=== PATIENT | male | born 1940 | race Caucasian/White ===

== ENCOUNTER 2016-06-13 10:10 | Outpatient (RCR) | payer MEDICARE, OTHER ==
[2016-06-10 13:40] LABS: BASOPHILS % (AUTO) 0 % (0-10); EOSINOPHILS # (AUTO) 0.4 10^3/uL (0.0-0.3); EOSINOPHILS % (AUTO) 6 % (0-10); LYMPHOCYTES # (AUTO) 1.9 X 10^3 (1.0-4.0); LYMPHOCYTES % (AUTO) 33 % (12-44); MEAN CORPUSCULAR HEMOGLOBIN 31 PG (25-34); MEAN CORPUSCULAR HGB CONC 34 G/DL (32-36); MEAN CORPUSCULAR VOLUME 91 FL (80-99); MEAN PLATELET VOLUME 10.3 FL (7.4-10.4); MONOCYTES # (AUTO) 0.4 X 10^3 (0.0-1.0); MONOCYTES % (AUTO) 6 % (0-12); NEUTROPHILS # (AUTO) 3.1 X 10^3 (1.8-7.8); NEUTROPHILS % (AUTO) 55 % (42-75); PLATELET COUNT 156 10^3/uL (130-400); RED BLOOD COUNT 4.79 10^6/uL (4.35-5.85); RED CELL DISTRIBUTION WIDTH 13.8 % (10.0-14.5); WHITE BLOOD COUNT 5.7 10^3/uL (4.3-11.0)
[2016-06-10 13:57] LABS: ALANINE AMINOTRANSFERASE 16 U/L (0-55); ALBUMIN 4.1 G/DL (3.2-4.5); ANION GAP 13 MMOL/L (5-14); ASPARTATE AMINO TRANSFERASE 18 U/L (5-34); BILIRUBIN,TOTAL 0.4 MG/DL (0.1-1.0); BLOOD UREA NITROGEN 18 MG/DL (7-18); BUN/CREATININE RATIO 18; CALCIUM 9.2 MG/DL (8.5-10.1); CARBON DIOXIDE 22 MMOL/L (21-32); CHLORIDE 105 MMOL/L (98-107); GFR ESTIMATED > 60; GLUCOSE 131 MG/DL (70-105); POTASSIUM 4.3 MMOL/L (3.6-5.0); SODIUM 140 MMOL/L (135-145); TOTAL PROTEIN 6.6 G/DL (6.4-8.2)
[~2016-06-13 10:10] MED LIST: AMBIEN CR; ASP81CT PO; ASPI-983 PO; CLC500CT PO; DABI150C2 PO; DILT180C PO; DILT240C PO; ERGO400C PO; LORA10TA7 PO; MULT1CAP27 PO; OMG1KC PO; OXYC-12 PO; OXYC1TAB87 PO; PNT40TEC PO; PRAV80TA2 PO; SERT50TA; SERT50TA PO; ZLP5T PO
== END 2016-09-08 | disposition home or self-care (01) ==
LOC: ONC 10:10
PROVIDERS: ATTEND Internal Medicine Hematology & Oncology
DX: Z08 Encounter for follow-up examination after completed treatment for malignant neoplasm (principal); Z85.038 Personal history of other malignant neoplasm of large intestine; I10 Essential (primary) hypertension; Z79.899 Other long term (current) drug therapy
CPT/HCPCS: 36415; 80053; 82378; 85025; 99213

== ENCOUNTER → 2017-06-06 | Outpatient (CLI) | payer MEDICARE, OTHER ==
[~2017-06-06] VITALS: Ht 170.2 cm; Wt 86.6 kg
[~2017-06-06] MED LIST changes: +CATHETER FLUSH 10 ML SYR IV PRN; +REGADENOSON 0.4 MG/5 ML SYR (LEXISCAN) IV ONE
[2017-06-06 09:41] VITALS: BP 168/96
== END ==
LOC: CARD 07:55
PROVIDERS: ATTEND Internal Medicine Cardiovascular Disease
DX: I48.0 Paroxysmal atrial fibrillation (principal); I25.10 Atherosclerotic heart disease of native coronary artery without angina pectoris; E78.4 Other hyperlipidemia; I10 Essential (primary) hypertension; R06.02 Shortness of breath; Z79.01 Long term (current) use of anticoagulants
CPT/HCPCS: 78452; 93017

== ENCOUNTER 2017-06-12 10:38 | Outpatient (RCR) | payer MEDICARE, OTHER ==
[~2017-06-12 10:38] MED LIST changes: -CATHETER FLUSH 10 ML SYR IV PRN; -REGADENOSON 0.4 MG/5 ML SYR (LEXISCAN) IV ONE
[2017-08-08] MEDS ORDERED: DABI150C5 PO (09:56)
[2017-08-08] MEDS ORDERED: OMG1KC PO (09:56)
[2017-08-08] MEDS ORDERED: DILT180C67 PO (09:56)
[2017-08-08] MEDS ORDERED: MULT1TAB69 PO (09:56)
[2017-08-08] MEDS ORDERED: NF-VITD400 PO (09:56)
[2017-08-08] MEDS ORDERED: MONT10TA24 PO (09:56)
== END 2017-09-10 | disposition home or self-care (01) ==
LOC: ONC 10:38
PROVIDERS: ATTEND Internal Medicine Hematology & Oncology
DX: Z08 Encounter for follow-up examination after completed treatment for malignant neoplasm (principal); Z85.038 Personal history of other malignant neoplasm of large intestine; I10 Essential (primary) hypertension; Z12.5 Encounter for screening for malignant neoplasm of prostate; Z79.899 Other long term (current) drug therapy
CPT/HCPCS: 36415; 82378; 84153; 99213

== ENCOUNTER → 2017-06-15 | Outpatient (CLI) | payer MEDICARE, OTHER | LOC: CARD 10:41 | PROVIDERS: ATTEND Internal Medicine Cardiovascular Disease | DX: I48.0 Paroxysmal atrial fibrillation (principal); R06.02 Shortness of breath; I25.10 Atherosclerotic heart disease of native coronary artery without angina pectoris; E78.4 Other hyperlipidemia; I10 Essential (primary) hypertension; Z79.01 Long term (current) use of anticoagulants | CPT/HCPCS: 93306 ==

== ENCOUNTER 2017-08-08 09:34 | Outpatient (CLI) | payer MEDICARE, OTHER ==
[~2017-08-08] VITALS: Ht 170.2 cm; Wt 86.6 kg
[2017-08-08] MEDS ORDERED: OMG1KC PO (09:56)
[2017-08-08] MEDS ORDERED: MONT10TA24 PO (09:56)
[2017-08-08] MEDS ORDERED: NF-VITD400 PO (09:56)
[2017-08-08] MEDS ORDERED: DILT180C67 PO (09:56)
[2017-08-08] MEDS ORDERED: DABI150C5 PO (09:56)
[2017-08-08] MEDS ORDERED: MULT1TAB69 PO (09:56)
== END 2017-08-08 09:58 ==
LOC: PREOP 09:34
PROVIDERS: ATTEND Surgery
DX: Z01.818 Encounter for other preprocedural examination (principal); Z85.038 Personal history of other malignant neoplasm of large intestine; Z86.010 Personal history of colon polyps

== ENCOUNTER 2017-08-09 10:43 | Day surgery (SDC) | payer MEDICARE, OTHER ==
[~2017-08-09] VITALS: Ht 170.2 cm; Wt 86.6 kg
[~2017-08-09 10:43] MED LIST changes: +DABI150C5 PO; +DILT180C67 PO; +MONT10TA24 PO; +MULT1TAB69 PO; +NF-VITD400 PO
--- OUTSIDE RECORDS SUMMARY | 2017-08-09 10:48 | XMS REPORT | Continuity of Care Document ---
Author Author [facility] Organization [facility] Address Unknown Phone Unavailable Allergies Active Description Code Type Severity Reaction Onset Reported/Identified Relationship to Patient Clinical Status Yes No Known Drug Allergies [id number] Drug Allergy Unknown N/ A 08/07/2007 Medications Problems Date Dx Coded Attending Type Code Diagnosis Diagnosed By 03/21/2012 Ot 530.11 REFLUX ESOPHAGITIS 03/21/2012 Ot 535.40 OTH SPECIFIED GASTRITIS,W/O MENTION OF H 03/21/2012 Ot 553.3 DIAPHRAGMATIC HERNIA 03/21/2012 Ot V58.66 LONG-TERM (CURRENT) USE OF ASPIRIN 03/21/2012 Ot V58.69 OTH MED,LT,CURRENT USE 07/25/2013 VERNELL LANZA, VIDAL Ot 553.21 INCISIONAL HERNIA 07/25/2013 VERNELL LANZA, VIDAL Ot 575.11 CHRONIC CHOLECYSTITIS 03/21/2014 VIDAL MATT MD Ot 530.11 REFLUX ESOPHAGITIS 03/21/2014 VIDAL MATT MD Ot 535.50 UNSP GASTRITIS GASTRODUODENITIS W/O ME 03/21/2014 VIDAL MATT MD Ot 553.3 DIAPHRAGMATIC HERNIA 08/04/2014 JUSTIN LANZA, SUKHWINDER Garcia Ot 789.00 08/04/2014 VIDAL MATT MD Ot 553.21 08/04/2014 VIDAL MATT MD Ot 575.11 08/04/2014 VIDAL MATT MD Ot V72.63 08/04/2014 VIDAL MATT MD Ot V72.81 08/04/2014 VERNELL LANZA, VIDAL Ot V72.83 08/04/2014 VIDAL MATT MD Ot V74.8 08/04/2014 DONNA LANZA, EDITH Ot 401.9 08/04/2014 EDITH THOMPSON MD Ot V10.05 08/04/2014 EDITH THOMPSON MD Ot V45.72 08/04/2014 DONNA LANZA, EDITH Ot V58.69 08/04/2014 DONNA LANZA, EDITH Ot V67.09 08/04/2014 JUSTIN LANZA, SUKHWINDER Garcia Ot 442.2 08/04/2014 JUSTIN LANZA, SUKHWINDER Garcia Ot 553.3 08/04/2014 JUSTIN LANZA, SUKHWINDER Garcia Ot 573.8 08/04/2014 JUSTIN LANZA, SUKHWINDER Garcia Ot 593.2 08/04/2014 JUSTIN LANZA, SUKHWINDER Garcia Ot 789.00 08/04/2014 VERNELL LANZA, REYNAAAKI Ot V72.84 09/03/2014 JUSTIN LANZA, SUKHWINDER Garcia Ot 786.2 06/24/2015 VERNELL LANZA, TAKAAKI Ot D12.8 06/24/2015 VERNELL LANZA, TAKAAKI Ot K64.4 06/24/2015 VERNELL LANZA, TAKAAKI Ot K64.8 06/24/2015 VERNELL LANZA, TAKAAKI Ot Z08 06/24/2015 VERNELL LANZA, TAKAAKI Ot Z12.11 06/24/2015 VERNELL LANZA, TAKAAKI Ot Z85.038 07/09/2015 JUSTIN LANZA, SUKHWINDER Garcia Ot I25.10 07/09/2015 JUSTIN LANZA, SUKHWINDER Garcia Ot N40.0 07/09/2015 JUSTIN LANZA, SUKHWINDER Garcia Ot Z79.899 08/05/2015 DONNA LANZA, EDITH Ot I10 08/05/2015 EDITH THOMPSON MD Ot Z08 08/05/2015 DONNA LANZA, EDITH Ot Z79.899 08/05/2015 DONNA LANZA, EDITH Ot Z85.038 09/08/2015 EDITH THOMPSON MD Ot I10 ESSENTIAL (PRIMARY) HYPERTENSION 09/08/2015 EDITH THOMPSON MD Ot Z08 ENCNTR FOR FOLLOW-UP EXAM AFTER TRTMT FO 09/08/2015 EDITH THOMPSON MD Ot Z79.899 OTHER FIELD AIDE (CURRENT) DRUG THERAPY 09/08/2015 EDITH THOMPSON MD Ot Z85.038 PERSONAL HISTORY OF MALIGNANT NEOPLASM O 04/12/2016 SUKHWINDER ANDERSON MD Ot R19.7 DIARRHEA, UNSPECIFIED 04/15/2016 SUKHWINDER ANDERSON MD Ot R19.7 DIARRHEA, UNSPECIFIED 07/10/2016 SUKHWINDER ANDERSON MD Ot R19.7 DIARRHEA, UNSPECIFIED 08/02/2016 EDITH THOMPSON MD Ot I10 ESSENTIAL (PRIMARY) HYPERTENSION 08/02/2016 EDITH THOMPSON MD, Ot Z08 ENCNTR FOR FOLLOW-UP EXAM AFTER TRTMT FO 08/02/2016 EDITH THOMPSON MD Ot Z79.899 OTHER JAIL (CURRENT) DRUG THERAPY 08/02/2016 EDITH THOMPSON MD Ot Z85.038 PERSONAL HISTORY OF MALIGNANT NEOPLASM O 09/08/2016 EDITH THOMPSON MD, Ot I10 ESSENTIAL (PRIMARY) HYPERTENSION 09/08/2016 EDITH THOMPSON MD, Ot Z08 ENCNTR FOR FOLLOW-UP EXAM AFTER TRTMT FO 09/08/2016 EDITH THOMPSON MD, Ot Z79.899 OTHER JAIL (CURRENT) DRUG THERAPY 09/08/2016 EDITH THOMPSON MD Ot Z85.038 PERSONAL HISTORY OF MALIGNANT NEOPLASM O 06/06/2017 SUKHWINDER ANDERSON MD Ot 789.00 ABDOMINAL PAIN, UNSPECIFIED SITE 06/06/2017 VIDAL MATT MD Ot 553.21 INCISIONAL HERNIA 06/06/2017 VIDAL MATT MD Ot 575.11 CHRONIC CHOLECYSTITIS 06/06/2017 VIDAL MATT MD Ot V72.63 PRE-PROCEDURAL LABORATORY EXAMINATION 06/06/2017 VIDAL MATT MD Ot V72.81 [id number]-[id number] CARDIOVASCULAR 06/06/2017 VIDAL MATT MD Ot V72.83 EXAM PRE-OPERATIVE NEC 06/06/2017 VIDAL MATT MD Ot V74.8 SCREEN-BACTERIAL DIS NEC 06/06/2017 EDITH THOMPSON MD Ot 401.9 HYPERTENSION NOS 06/06/2017 EDITH THOMPSON MD Ot V10.05 HX OF COLONIC MALIGNANCY 06/06/2017 EDITH THOMPSON MD Ot V45.72 ACQRD ABSENCE INTESTINE - LARGE/SMALL 06/06/2017 EDITH THOMPSON MD, Ot V58.69 OTH MED,LT,CURRENT USE 06/06/2017 EDITH THOMPSON MD, Ot V67.09 SURGERY FOLLOW-UP, OTHER SURGERY 06/06/2017 JUSTIN LANZA, SUKHWINDER Garcia Ot 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 06/06/2017 SUKHWINDER ANDERSON MD Ot 553.3 DIAPHRAGMATIC HERNIA 06/06/2017 SUKHWINDER ANDERSON MD Ot 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 06/06/2017 SUKHWINDER ANDERSON MD Ot 593.2 CYST OF KIDNEY, ACQUIRED 06/06/2017 SUKHWINDER ANDERSON MD Ot 789.00 ABDOMINAL PAIN, UNSPECIFIED SITE 06/06/2017 VIDAL MATT MD Ot V72.84 EXAM PRE-OPERATIVE NOS 06/06/2017 SUKHWINDER ANDERSON MD Ot 786.2 COUGH 06/06/2017 SUKHWINDER ANDERSON MD Ot I25.10 ATHSCL HEART DISEASE OF [place] CORONARY 06/06/2017 SUKHWINDER ANDERSON MD Ot N40.0 ENLARGED PROSTATE WITHOUT LOWER URINARY 06/06/2017 SUKHWINDER ANDERSON MD, Ot Z79.899 OTHER FIELD AIDE (CURRENT) DRUG THERAPY 06/06/2017 VIDAL MATT MD Ot Z01.818 ENCOUNTER FOR OTHER PREPROCEDURAL EXAMIN 06/06/2017 SUKHWINDER ANDERSON MD Ot R19.7 DIARRHEA, UNSPECIFIED 06/06/2017 EDITH THOMPSON MD Ot I10 ESSENTIAL (PRIMARY) HYPERTENSION 06/06/2017 EDITH THOMPSON MD Ot Z08 ENCNTR FOR FOLLOW-UP EXAM AFTER TRTMT FO 06/06/2017 EDITH THOMPSON MD, Ot Z79.899 OTHER FIELD AIDE (CURRENT) DRUG THERAPY 06/06/2017 EDITH THOMPSON MD Ot Z85.038 PERSONAL HISTORY OF MALIGNANT NEOPLASM O 06/09/2017 SUKHWINDER ANDERSON MD Ot 789.00 ABDOMINAL PAIN, UNSPECIFIED SITE 06/09/2017 VIDAL MATT MD Ot 553.21 INCISIONAL HERNIA 06/09/2017 VIDAL MATT MD Ot 575.11 CHRONIC CHOLECYSTITIS 06/09/2017 VIDAL MATT MD Ot V72.63 PRE-PROCEDURAL LABORATORY EXAMINATION 06/09/2017 VIDAL MATT MD Ot V72.81 [id number]-[id number] CARDIOVASCULAR 06/09/2017 VIDAL MATT MD Ot V72.83 EXAM PRE-OPERATIVE NEC 06/09/2017 VIDAL MATT MD Ot V74.8 SCREEN-BACTERIAL DIS NEC 06/09/2017 EDITH THOMPSON MD Ot 401.9 HYPERTENSION NOS 06/09/2017 EDITH THOMPSON MD Ot V10.05 HX OF COLONIC MALIGNANCY 06/09/2017 EDITH THOMPSON MD, Ot V45.72 ACQRD ABSENCE INTESTINE - LARGE/SMALL 06/09/2017 EDITH THOMPSON MD, Ot V58.69 OTH MED,LT,CURRENT USE 06/09/2017 EDITH THOMPSON MD, Ot V67.09 SURGERY FOLLOW-UP, OTHER SURGERY 06/09/2017 SUKHWINDER ANDERSON MD Ot 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 06/09/2017 SUKHWINDER ANDERSON MD Ot 553.3 DIAPHRAGMATIC HERNIA 06/09/2017 SUKHWINDER ANDERSON MD Ot 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 06/09/2017 SUKHWINDER ANDERSON MD Ot 593.2 CYST OF KIDNEY, ACQUIRED 06/09/2017 SUKHWINDER ANDERSON MD Ot 789.00 ABDOMINAL PAIN, UNSPECIFIED SITE 06/09/2017 VIDAL MATT MD, Ot V72.84 EXAM PRE-OPERATIVE NOS 06/09/2017 SUKHWINDER ANDERSON MD, Ot 786.2 COUGH 06/09/2017 SUKHWINDER ANDERSON MD, Ot I25.10 ATHSCL HEART DISEASE OF [place] CORONARY 06/09/2017 SUKHWINDER ANDERSON MD Ot N40.0 ENLARGED PROSTATE WITHOUT LOWER URINARY 06/09/2017 SUKHWINDER ANDERSON MD, Ot Z79.899 OTHER FIELD AIDE (CURRENT) DRUG THERAPY 06/09/2017 VIDAL MATT MD Ot Z01.818 ENCOUNTER FOR OTHER PREPROCEDURAL EXAMIN 06/09/2017 SUKHWINDER ANDERSON MD Ot R19.7 DIARRHEA, UNSPECIFIED 06/09/2017 EDITH THOMPSON MD, Ot I10 ESSENTIAL (PRIMARY) HYPERTENSION 06/09/2017 EDITH THOMPSON MD, Ot Z08 ENCNTR FOR FOLLOW-UP EXAM AFTER TRTMT FO 06/09/2017 EDITH THOMPSON MD, Ot Z79.899 OTHER FIELD AIDE (CURRENT) DRUG THERAPY 06/09/2017 EDITH THOMPSON MD Ot Z85.038 PERSONAL HISTORY OF MALIGNANT NEOPLASM O 06/09/2017 DMITRI LANZA FACC, ALI FACP CCDS Ot E78.4 OTHER HYPERLIPIDEMIA 06/09/2017 DMITRI LANZA FACC, ALI FACP CCDS Ot I10 ESSENTIAL (PRIMARY) HYPERTENSION 06/09/2017 DMITRI LANZA FACC, ALI FACP CCDS Ot I25.10 ATHSCL HEART DISEASE OF [place] CORONARY 06/09/2017 DMITRI LANZA FACC, ALI FACP CCDS Ot I48.0 PAROXYSMAL ATRIAL FIBRILLATION 06/09/2017 DMITRI LANZA FACC, ALI FACP CCDS Ot R06.02 SHORTNESS OF BREATH 06/09/2017 DMITRI LANZA FACC, ALI FACP CCDS Ot Z79.01 FIELD AIDE (CURRENT) USE OF ANTICOAGULANT 06/12/2017 DMITRI LANZA FACC, ALI FACP CCDS Ot E78.4 OTHER HYPERLIPIDEMIA 06/12/2017 DMITRI LANZA FACC, ALI FACP CCDS Ot I10 ESSENTIAL (PRIMARY) HYPERTENSION 06/12/2017 DMITRI LANZA FACC, ALI FACP CCDS Ot I25.10 ATHSCL HEART DISEASE OF [place] CORONARY 06/12/2017 DMITRI LANZA FACC, ALI FACP CCDS Ot I48.0 PAROXYSMAL ATRIAL FIBRILLATION 06/12/2017 DMITRI LANZA FACC, ALI FACP CCDS Ot R06.02 SHORTNESS OF BREATH 06/12/2017 DMITRI LANZA FACC, ALI FACP CCDS Ot Z79.01 JAIL (CURRENT) USE OF ANTICOAGULANT 06/16/2017 DMITRI LANZA FACC, ALI FACP CCDS Ot E78.4 OTHER HYPERLIPIDEMIA 06/16/2017 DMITRI LANZA FACC, ALI FACP CCDS Ot I10 ESSENTIAL (PRIMARY) HYPERTENSION 06/16/2017 DMITRI LAZNA FACC, ALI FACP CCDS Ot I25.10 ATHSCL HEART DISEASE OF [place] CORONARY 06/16/2017 DMITRI LANZA FACC, ALI FACP CCDS Ot I48.0 PAROXYSMAL ATRIAL FIBRILLATION 06/16/2017 DMITRI LANZA FACC, ALI FACP CCDS Ot R06.02 SHORTNESS OF BREATH 06/16/2017 DMITRI LANZA FACC, ALI FACP CCDS Ot Z79.01 JAIL (CURRENT) USE OF ANTICOAGULANT 06/28/2017 DMITRI LANZA FACC, ALI FACP CCDS Ot E78.4 OTHER HYPERLIPIDEMIA 06/28/2017 DMITRI LANZA FACC, ALI FACP CCDS Ot I10 ESSENTIAL (PRIMARY) HYPERTENSION 06/28/2017 DMITRI LANZA FACC, ALI FACP CCDS Ot I25.10 ATHSCL HEART DISEASE OF [place] CORONARY 06/28/2017 DMITRI LANZA FACC, ALI FACP CCDS Ot I48.0 PAROXYSMAL ATRIAL FIBRILLATION 06/28/2017 DMITRI LANZA FACC, ALI FACP CCDS Ot R06.02 SHORTNESS OF BREATH 06/28/2017 DMITRI LANZA FACC, GITA FACP CCDS Ot Z79.01 FIELD AIDE (CURRENT) USE OF ANTICOAGULANT 07/06/2017 DMITRI LANZA FACC, ALI FACP CCDS Ot E78.4 OTHER HYPERLIPIDEMIA 07/06/2017 DMITRI LANZA FACC, ALI FACP CCDS Ot I10 ESSENTIAL (PRIMARY) HYPERTENSION 07/06/2017 DMITIR LANZA FACC, ALI FACP CCDS Ot I25.10 ATHSCL HEART DISEASE OF [place] CORONARY 07/06/2017 DMITRI LANZA FACC, ALI FACP CCDS Ot I48.0 PAROXYSMAL ATRIAL FIBRILLATION 07/06/2017 DMITRI LANZA FACC, GITA FACP CCDS Ot R06.02 SHORTNESS OF BREATH 07/06/2017 DMITRI LANZA FACC, GITA FACP CCDS Ot Z79.01 FIELD AIDE (CURRENT) USE OF ANTICOAGULANT 07/11/2017 EDITH THOMPSON MD, Ot I10 ESSENTIAL (PRIMARY) HYPERTENSION 07/11/2017 EDITH THOMPSON MD, Ot Z08 ENCNTR FOR FOLLOW-UP EXAM AFTER TRTMT FO 07/11/2017 EDITH THOMPSON MD Ot Z79.899 OTHER FIELD AIDE (CURRENT) DRUG THERAPY 07/11/2017 EDITH THOMPSON MD, Ot Z85.038 PERSONAL HISTORY OF MALIGNANT NEOPLASM O 07/11/2017 EDITH THOMPSON MD, Ot I10 ESSENTIAL (PRIMARY) HYPERTENSION 07/11/2017 EDITH THOMPSON MD, Ot Z08 ENCNTR FOR FOLLOW-UP EXAM AFTER TRTMT FO 07/11/2017 EDITH THOMPSON MD Ot Z79.899 OTHER JAIL (CURRENT) DRUG THERAPY 07/11/2017 EDITH THOMPSON MD, Ot Z85.038 PERSONAL HISTORY OF MALIGNANT NEOPLASM O 07/11/2017 JUSTIN LANZA, SUKHWINDER Garcia Ot 789.00 ABDOMINAL PAIN, UNSPECIFIED SITE 07/11/2017 VIDAL MATT MD Ot 553.21 INCISIONAL HERNIA 07/11/2017 VIDAL MATT MD Ot 575.11 CHRONIC CHOLECYSTITIS 07/11/2017 VIDAL MATT MD, Ot V72.63 PRE-PROCEDURAL LABORATORY EXAMINATION 07/11/2017 VIDAL MATT MD, Ot V72.81 [id number] CARDIOVASCULAR 07/11/2017 VIDAL MATT MD, Ot V72.83 EXAM PRE-OPERATIVE NEC 07/11/2017 VIDAL MATT MD Ot V74.8 SCREEN-BACTERIAL DIS NEC 07/11/2017 EDITH THOMPSON MD Ot 401.9 HYPERTENSION NOS 07/11/2017 EDITH THOMPSON MD Ot V10.05 HX OF COLONIC MALIGNANCY 07/11/2017 EDITH THOMPSON MD, Ot V45.72 ACQRD ABSENCE INTESTINE - LARGE/SMALL 07/11/2017 EDITH THOMPSON MD, Ot V58.69 OTH MED,LT,CURRENT USE 07/11/2017 EDITH THOMPSON MD, Ot V67.09 SURGERY FOLLOW-UP, OTHER SURGERY 07/11/2017 SUKHWINDER ANDERSON MD Ot 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 07/11/2017 SUKHWINDER ANDERSON MD Ot 553.3 DIAPHRAGMATIC HERNIA 07/11/2017 SUKHWINDER ANDERSON MD Ot 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 07/11/2017 SUKHWINDER ANDERSON MD Ot 593.2 CYST OF KIDNEY, ACQUIRED 07/11/2017 SUKHWINDER ANDERSON MD Ot 789.00 ABDOMINAL PAIN, UNSPECIFIED SITE 07/11/2017 VIDAL MATT MD Ot V72.84 EXAM PRE-OPERATIVE NOS 07/11/2017 SUKHWINDER ANDERSON MD Ot 786.2 COUGH 07/11/2017 SUKHWINDER ANDERSON MD Ot I25.10 ATHSCL HEART DISEASE OF [place] CORONARY 07/11/2017 SUKHWINDER ANDERSON MD Ot N40.0 ENLARGED PROSTATE WITHOUT LOWER URINARY 07/11/2017 SUKHWINDER ANDERSON MD Ot Z79.899 OTHER JAIL (CURRENT) DRUG THERAPY 07/11/2017 VIDAL MATT MD Ot Z01.818 ENCOUNTER FOR OTHER PREPROCEDURAL EXAMIN 07/11/2017 SUKHWINDER ANDERSON MD Ot R19.7 DIARRHEA, UNSPECIFIED 07/11/2017 EDITH THOMPSON MD Ot I10 ESSENTIAL (PRIMARY) HYPERTENSION 07/11/2017 EDITH THOMPSON MD, Ot Z08 ENCNTR FOR FOLLOW-UP EXAM AFTER TRTMT FO 07/11/2017 EDITH THOMPSON MD, Ot Z79.899 OTHER FIELD AIDE (CURRENT) DRUG THERAPY 07/11/2017 EDITH THOMPSON MD Ot Z85.038 PERSONAL HISTORY OF MALIGNANT NEOPLASM O 07/11/2017 DMITRI LANZA FACC, ALI FACP CCDS Ot E78.4 OTHER HYPERLIPIDEMIA 07/11/2017 DMITRI LANZA FACC, ALI FACP CCDS Ot I10 ESSENTIAL (PRIMARY) HYPERTENSION 07/11/2017 DMITRI LANZA FACC, ALI FACP CCDS Ot I25.10 ATHSCL HEART DISEASE OF [place] CORONARY 07/11/2017 DMITRI LANZA FACC, ALI FACP CCDS Ot I48.0 PAROXYSMAL ATRIAL FIBRILLATION 07/11/2017 DMITRI LANZA FACC, ALI FACP CCDS Ot R06.02 SHORTNESS OF BREATH 07/11/2017 DMITRI LANZA FACC, ALI FACP CCDS Ot Z79.01 FIELD AIDE (CURRENT) USE OF ANTICOAGULANT 07/11/2017 DMITRI LANZA FACC, ALI FACP CCDS Ot E78.4 OTHER HYPERLIPIDEMIA 07/11/2017 DMITRI LANZA FACC, ALI FACP CCDS Ot I10 ESSENTIAL (PRIMARY) HYPERTENSION 07/11/2017 DMITRI LANZA FACC, ALI FACP CCDS Ot I25.10 ATHSCL HEART DISEASE OF [place] CORONARY 07/11/2017 DMITRI LANZA FACC, ALI FACP CCDS Ot I48.0 PAROXYSMAL ATRIAL FIBRILLATION 07/11/2017 DMITRI LANZA FACC, ALI FACP CCDS Ot R06.02 SHORTNESS OF BREATH 07/11/2017 DMITRI LANZA FACC, ALI FACP CCDS Ot Z79.01 JAIL (CURRENT) USE OF ANTICOAGULANT 07/14/2017 DMITRI WELCHC, ALI FACP CCDS Ot E78.4 OTHER HYPERLIPIDEMIA 07/14/2017 DMITRI LANZA FACC, ALI FACP CCDS Ot I10 ESSENTIAL (PRIMARY) HYPERTENSION 07/14/2017 DMITRI WELCHC, ALI FACP CCDS Ot I25.10 ATHSCL HEART DISEASE OF [place] CORONARY 07/14/2017 DMITRI LANZA FACC, ALI FACP CCDS Ot I48.0 PAROXYSMAL ATRIAL FIBRILLATION 07/14/2017 DMITRI LANZA FACC, ALI FACP CCDS Ot R06.02 SHORTNESS OF BREATH 07/14/2017 DMITRI LANZA FACC, ALI FACP CCDS Ot Z79.01 FIELD AIDE (CURRENT) USE OF ANTICOAGULANT 07/24/2017 DMITRI LANZA FACC, ALI FACP CCDS Ot E78.4 OTHER HYPERLIPIDEMIA 07/24/2017 DMITRI LANZA FACC, ALI FACP CCDS Ot I10 ESSENTIAL (PRIMARY) HYPERTENSION 07/24/2017 DMITRI LANZA FACC, ALI FACP CCDS Ot I25.10 ATHSCL HEART DISEASE OF [place] CORONARY 07/24/2017 DMITRI LANZA FACC, GITA FACP CCDS Ot I48.0 PAROXYSMAL ATRIAL FIBRILLATION 07/24/2017 DMITRI LANZA FACC, GITA FACP CCDS Ot R06.02 SHORTNESS OF BREATH 07/24/2017 DMITRI LANZA FACC, GITA FACP CCDS Ot Z79.01 JAIL (CURRENT) USE OF ANTICOAGULANT 07/31/2017 EDITH THOMPSON MD, Ot I10 ESSENTIAL (PRIMARY) HYPERTENSION 07/31/2017 EDITH THOMPSON MD Ot Z08 ENCNTR FOR FOLLOW-UP EXAM AFTER TRTMT FO 07/31/2017 EDITH THOMPSON MD, Ot Z79.899 OTHER JAIL (CURRENT) DRUG THERAPY 07/31/2017 EDITH THOMPSON MD, Ot Z85.038 PERSONAL HISTORY OF MALIGNANT NEOPLASM O Procedures Results Encounters ACCT No. Visit Date/Time Discharge Status Pt. Type Provider Facility Loc./Unit Complaint [id number] 08/08/2017 09:34:00 2016 09:58:00 DIS Outpatient VIDAL MATT MD [facility] PREOP COLONOSCOPY [id number] 06/15/2017 10:41:00 2016 23:59:59 CLS Outpatient DMITRI LANZA FACC ALI FACP CCDS [facility] CARD PAF,CAD [id number] 06/12/2017 10:38:00 2016 23:59:59 CLS Outpatient EDITH THOMPSON MD [facility] ONC [id number] 06/06/2017 07:55:00 2016 23:59:59 CLS Outpatient GITA RIZVI MD, FACC FACP CCDS [facility] CARD PAF,SOB [id number] 06/13/2016 10:10:00 2016 00:01:00 DIS Outpatient EDITH THOMPSON MD [facility] ONC [id number] 07/11/2016 00:08:00 2015 23:59:59 CLS Preadmit SUKHWINDER ANDERSON MD [facility] LAB DIARRHEA [id number] 04/11/2016 10:40:00 2015 00:01:00 DIS Outpatient SUKHWINDER ANDERSON MD [facility] LAB DIARRHEA [id number] 07/15/2015 12:50:00 2015 00:01:00 DIS Outpatient EDITH THOMPSON MD [facility] ONC [id number] 06/24/2015 08:30:00 2014 12:00:00 DIS Outpatient VIDAL MATT MD [facility] [id number] 06/19/2015 05:39:00 2014 23:59:59 CLS Outpatient VIDAL MATT MD [facility] PREOP HX COLON CANCER [id number] 06/15/2015 11:21:00 2014 23:59:59 CLS Outpatient SUKHWINDER ANDERSON MD [facility] LAB [id number] 08/04/2014 10:54:00 2013 23:59:59 CLS Outpatient SUKHWINDER ANDERSON MD [facility] RAD COUGH [id number] 06/16/2014 09:47:00 2013 23:59:59 CLS Outpatient EDITH THOMPSON MD [facility] ONC LAB [id number] 03/21/2014 10:15:00 2013 15:00:00 DIS Outpatient VIDAL MATT MD [facility] GERD [id number] 03/19/2014 07:52:00 2013 23:59:59 CLS Outpatient VIDAL MATT MD [facility] PREOP GERD [id number] 02/18/2014 09:08:00 2013 23:59:59 CLS Outpatient SUKHWINDER ANDERSON MD [facility] RAD ABD PAIN [id number] 06/17/2013 10:54:00 2013 00:01:00 DIS Outpatient [id number] 07/25/2013 10:17:00 2012 21:50:00 DIS Outpatient VIDAL MATT MD [facility] INCISIONAL HERNIA [id number] 07/24/2013 09:32:00 2012 23:59:59 CLS Outpatient VIDAL MATT MD [facility] PREOP INCISIONAL HERNIA [id number] 07/05/2013 06:50:00 2012 23:59:59 CLS Outpatient SUKHWINDER ANDERSON MD [facility] RAD ABD PAIN [id number] 03/21/2012 06:27:00 Document Registration
[2017-08-09] MEDS ORDERED: NS IV 500 ML 500 ML IV PRN (10:52)
[2017-08-09 11:19] VITALS: BP 140/91
--- NOTE | 2017-08-09 11:33 | Conscious Sedation/ASA ---
Conscious Sedation Pre-Proced Time Reviewed: 11:20 ASA Class: 2 Airway Mallampati Classification: ([place] appropriate class) I. II. III, IV Lungs Heart ASA score ASA 1: a normal healthy patient ASA 2: a patient with a mild systemic disease (mid diabetes, controlled hypertension, obesity ASA 3: a patient with a severe systemic disease that limits activity (angina , COPD, prior Myocardial infarction) ASA 4: a patient with an incapacitating disease that is a constant threat to life (CHF, renal failure) ASA 5: a moribund patient not expected to survive 24 hrs. (ruptured aneurysm) ASA 6: a declared brain patient whose organs are being harvested. For emergent operations, add the letter E after the classification Grade 2 Sedation Plan: Analgesia, Amnesia, Plan communicated to team members, Discussed options with patient/fam, Discussed risks with patient/fam Note The patient is an appropriate candidate to undergo the planned procedure, sedation, and anesthesia. The patient immediately re-assessed prior to indication. VIDAL MATT MD Aug 09, 2017 11:33 am
--- NOTE | 2017-08-09 11:34 | Progress Note-Pre Operative ---
Pre-Operative Progress Note H&P Reviewed The H&P was reviewed, patient examined and no changes noted. Date Seen by Provider: Aug 09, 2017 Time Seen by Provider: 11:20 Date H&P Reviewed: Aug 09, 2017 Time H&P Reviewed: 11:20 Pre-Operative Diagnosis: hx colon ca and polyps VIDAL MATT MD Aug 09, 2017 11:34 am
[2017-08-09] MEDS ORDERED: morphine INJ 10 MG/ML 1ML (SYR OR VIAL) IV PRN (11:45)
[2017-08-09] MEDS ORDERED: ONDANSETRON 4 MG/2 ML (SDV) Z0FRAN IV PRN (11:45)
[2017-08-09] MEDS ORDERED: HYDROcodone/APAP 5 MG/325 MG (LORTAB) TAB PO PRN (11:45)
[2017-08-09] MEDS ORDERED: ACETAMINOPHEN 325 MG TABLET/CAPLET (TYLENOL) PO PRN (11:45)
[2017-08-09] MEDS ORDERED: MIDAZOLAM 2 MG/2 ML (VERSED) VIAL ONE ×4 (14:40→14:41)
[2017-08-09] MEDS ORDERED: fentaNYL INJECTION 100 MCG/2 ML AMP ONE ×2 (14:40)
[2017-08-09] MEDS ORDERED: LIDOCAINE JELLY 2% (XYLOCAINE) 5 ML TUBE ONE (14:40)
[2017-08-09] MEDS: fentaNYL INJECTION 100 MCG/2 ML AMP IVP PRN ×2 (14:45→14:50)
[2017-08-09] MEDS: MIDAZOLAM 2 MG/2 ML (VERSED) VIAL IVP PRN ×2 (14:48→14:52)
--- NOTE | 2017-08-09 15:18 | Progress Note-Post Operative ---
Post-Operative Progess Note Surgeon (s)/Conservation Enforcement Officer (s) Surgeon VIDAL MATT MD Conservation Enforcement Officer: none Pre-Operative Diagnosis hx colon ca and polyps Post-Operative Diagnosis chronic stage stage 2 ext and int hemorrhoids, mild-mod sigmoid diverticulosis, normal anastamosis. Procedure & Operative Findings Date of Procedure 08/09/17 Procedure Performed/Findings Colonoscopy. Anesthesia Type CS Estimated Blood Loss Estimated blood loss (mL): minimal Specimens/Packing Specimens Removed none VIDAL MATT MD Aug 09, 2017 3:18 pm
--- NOTE | 2017-08-09 15:19 | Discharge Inst-Surgical ---
D/C Lap Instructions-VERNELL Follow Up 5 years. Activity as tolerated High Fiber Diet 25g or more per day Avoid Alcohol, Caffeine, Spicy [employer] and Acid foods. Drink 64 fluid oz or more of fluids per day. Symptoms to Report: Fever over 101 degree F, Nausea/Vomiting If any problems/questions: Contact your physician or go to Emergency Room VIDAL MATT MD Aug 09, 2017 3:19 pm
[2017-08-09] MEDS ORDERED: LIDOCAINE JELLY 2% (XYLOCAINE) 5 ML TUBE TOP ONE (15:30)
[2017-08-09 15:45] VITALS: BP 144/88
[2017-08-09 16:15] VITALS: BP 143/84
[2017-08-09 16:20] VITALS: BP 143/84
--- NOTE | 2017-08-09 23:05 | OPERATIVE REPORT ---
DATE OF SERVICE: 08/09/2017 ATTENDING PRIMARY CARE PHYSICIAN: Dr. Carlos. PREOPERATIVE DIAGNOSES: 1. Personal history of colon cancer. 2. History of polyps. 3. Left lower quadrant abdominal pain. PROCEDURE: Colonoscopy. SURGEON: Dr. Matt. ANESTHESIA: Conscious sedation. ESTIMATED BLOOD LOSS: Minimal. FINDINGS: Chronic stage II external and internal hemorrhoids, [id number] sigmoid diverticulosis. The anastomosis was normal. The remainder of the right colon to the cecum were normal, with as findings in the postoperative portion. DISPOSITION: The patient tolerated the procedure well. INDICATIONS FOR PROCEDURE: The patient is a 77-year-old male who we have seen before in the past. He has a history of colon cancer, which was suspected to be diverticulitis in 2006 and underwent an open left hemicolectomy. He did undergo a followup colonoscopy in 06/2015, which did show multiple small hyperplastic polyps of the rectum, which were benign. The anastomosis was normal. He reports intermittent bouts of left quadrant abdominal pain for the past several months. He reports that due to some of his medications, he has experienced more severe constipation in recent months as well. He states that he did have a hard bowel movement, which did require straining upon defecation and this was followed by an episode of rectal bleeding, which was supplemented. DESCRIPTION OF PROCEDURE: The patient was brought to the endoscopy suite, laid in the left lateral decubitus position. After adequate IV pain and sedating medications and conscious sedation anesthesia, a digital rectal examination was performed. Chronic stage II external and internal hemorrhoids were identified which were not actively edematous nor inflamed and no bleeding. Normal sphincter tone was felt and there were no palpable masses. The endoscope was then intubated to the anus, rectum and gently insufflated. The endoscope was then advanced to the [facility] [place] in the rectum with no polyps or any neoplasms identified. Through the sigmoid colonic remnant, there was a [id number] diverticulosis identified. There were no mucosal inflammatory changes to indicate any active diverticulitis. We feel that this was the root of his previous abdominal pain. The endoscope was then advanced and the colocolonic anastomosis was identified and appeared normal with no recurrent tumors. The endoscope was then advanced to the remainder of the transverse and right colon to the cecum, which were normal. There were no polyps identified throughout the colon or rectum. The endoscope was then slowly withdrawn while taking a second look and suctioning of residual air with no additional findings. The patient tolerated the procedure well. We feel that his symptoms are most likely secondary to constipation and irritation of diverticulosis with mild intermittent diverticulitis. We will recommend a high-fiber diet with at least 30 grams of fiber per day as well as copious amounts of water to promote soft stools on a daily basis and to never have hard formed stools that do not require any straining upon defecation. Again, due to his personal history of colon cancer, we will recommend a followup colonoscopy in 5 years. Job ID: [id number] DocumentID: [id number] Dictated Date: 08/09/2017 15:17:42 [employer] Specialist Date: 08/09/2017 23:04:46 Dictated By: VIDAL MATT MD MTDD
== END 2017-08-09 16:25 | disposition home or self-care (01) ==
LOC: ENDO 10:43
PROVIDERS: ATTEND Surgery
DX: R10.32 Left lower quadrant pain (principal); K57.30 Diverticulosis of large intestine without perforation or abscess without bleeding; K64.1 Second degree hemorrhoids; K59.00 Constipation, unspecified; Z85.038 Personal history of other malignant neoplasm of large intestine; Z86.010 Personal history of colon polyps; I25.10 Atherosclerotic heart disease of native coronary artery without angina pectoris; I10 Essential (primary) hypertension; I48.91 Unspecified atrial fibrillation; E78.00 Pure hypercholesterolemia, unspecified; K21.9 Gastro-esophageal reflux disease without esophagitis; Z79.82 Long term (current) use of aspirin; Z79.01 Long term (current) use of anticoagulants; Z79.899 Other long term (current) drug therapy; Z87.891 Personal history of nicotine dependence

== ENCOUNTER → 2018-08-20 | Outpatient (CLI) | payer MEDICARE, OTHER ==
--- NOTE | 2018-08-20 12:12 | Diagnostic Imaging Report ---
INDICATION: Scrotal mass. FINDINGS: Right testicle measures 5.7 x 3.2 x 4.0 cm and the left testicle measures 5.1 x 2.4 x 3.6 cm. Both testes show fairly homogeneous echotexture. No discrete testicular mass or vascular compromise is identified. There are hydroceles bilaterally. There is a hypoechoic mass involving the right epididymis measuring 1.8 x 2.3 x 1.5 cm. No vascularity is identified with the mass. There is a left-sided varicocele present. IMPRESSION: 1. No evidence of testicular mass or vascular compromise. 2. Bilateral hydroceles. 3. Left varicocele. 4. Right epididymal hypoechoic mass, nonspecific. No other significant abnormality is seen. Dictated by: Dictated on workstation # [id number]
== END ==
LOC: RAD 10:36
PROVIDERS: ATTEND Internal Medicine
DX: N43.3 Hydrocele, unspecified (principal); I86.1 Scrotal varices
CPT/HCPCS: 76870

== ENCOUNTER → 2018-11-26 | Outpatient (CLI) | payer MEDICARE, OTHER ==
--- NOTE | 2018-11-26 12:55 | Diagnostic Imaging Report ---
INDICATION: Scrotal mass, follow-up. TECHNIQUE: Real-time grayscale sonographic imaging and color vascular evaluation of both testicles was performed. CORRELATION STUDY: 08/20/2018. FINDINGS: RIGHT testicle measures 5.7 x 2.9 x 3.6 cm. LEFT testicle measures 5.3 x 2.5 x 3.0 cm. The testicles appear normal in echogenicity. No focal testicular mass demonstrated. There is vascular flow to the testicles. There may be presence of epididymal cyst. Otherwise, no definitive mass lesion particularly at the right aspect of the epididymis. There is presence of bilateral hydroceles. IMPRESSION: 1. No definitive epididymal mass at follow-up assessment. Small bilateral hydroceles are present. Dictated by: Dictated on workstation # [id number]
== END ==
LOC: RAD 09:49
PROVIDERS: ATTEND Internal Medicine
DX: N43.2 Other hydrocele (principal); N50.89 Other specified disorders of the male genital organs
CPT/HCPCS: 76870

== ENCOUNTER → 2019-01-09 | Outpatient (CLI) | payer MEDICARE, OTHER ==
--- NOTE | 2019-01-09 15:36 | Diagnostic Imaging Report ---
PROCEDURE: CT sinuses without contrast TECHNIQUE: Multiple contiguous axial images were obtained through the sinuses without the use of intravenous contrast. Coronal and sagittal reformations were then performed. Auto Exposure Controls were utilized during the CT exam to meet ALARA standards for radiation dose reduction. INDICATION: Chronic sinusitis and nasal polyp. The frontal sinus is clear. There is near complete opacification of ethmoid air cells. The sphenoid sinus is clear. There is some mucosal thickening in bilateral maxillary sinuses. Prominent soft tissue in the left nasal cavity is noted which may represent nasal polyps. There is soft tissue thickening in the region of the ostiomeatal complexes bilaterally. Nasal septum is midline. Mastoids are well aerated. IMPRESSION: Maxillary and ethmoid sinus mucosal disease. There is soft tissue prominence in the left nasal cavity perhaps owing to nasal polyposis. No other abnormalities detected. Dictated by: Dictated on workstation # [id number]
== END ==
LOC: RAD 14:59
PROVIDERS: ATTEND Otolaryngology Otolaryngology/Facial Plastic Surgery
DX: J32.0 Chronic maxillary sinusitis (principal); J32.2 Chronic ethmoidal sinusitis; J33.9 Nasal polyp, unspecified
CPT/HCPCS: 70486

== ENCOUNTER 2019-01-31 10:25 | Outpatient (CLI) | payer MEDICARE, OTHER ==
[~2019-01-31] VITALS: Ht 170.2 cm; Wt 85.3 kg
[2019-01-31] MEDS ORDERED: TRIA16.99 NS (10:37)
[2019-01-31] MEDS ORDERED: CETI10TA17 PO (10:37)
[2019-01-31] MEDS ORDERED: MAGN400C PO (10:37)
[2019-01-31 10:42] VITALS: BP 143/96
[2019-01-31 11:08] LABS: BASOPHILS % (AUTO) 0 % (0-10); EOSINOPHILS # (AUTO) 0.3 10^3/uL (0.0-0.3); EOSINOPHILS % (AUTO) 6 % (0-10); HEMATOCRIT 44 % (40-54); HEMOGLOBIN 14.9 G/DL (13.3-17.7); LYMPHOCYTES # (AUTO) 1.5 X 10^3 (1.0-4.0); LYMPHOCYTES % (AUTO) 33 % (12-44); MEAN CORPUSCULAR HEMOGLOBIN 30 PG (25-34); MEAN CORPUSCULAR HGB CONC 34 G/DL (32-36); MEAN CORPUSCULAR VOLUME 89 FL (80-99); MEAN PLATELET VOLUME 10.2 FL (7.4-10.4); MONOCYTES # (AUTO) 0.4 X 10^3 (0.0-1.0); MONOCYTES % (AUTO) 9 % (0-12); NEUTROPHILS # (AUTO) 2.4 X 10^3 (1.8-7.8); NEUTROPHILS % (AUTO) 53 % (42-75); PLATELET COUNT 144 10^3/uL (130-400); RED CELL DISTRIBUTION WIDTH 15.3 % (10.0-14.5); WHITE BLOOD COUNT 4.6 10^3/uL (4.3-11.0)
[2019-01-31 11:24] LABS: BUN/CREATININE RATIO 20; CALCIUM 9.5 MG/DL (8.5-10.1); CARBON DIOXIDE 26 MMOL/L (21-32); CHLORIDE 106 MMOL/L (98-107); CREATININE SERUM 0.93 MG/DL (0.60-1.30); GFR ESTIMATED > 60; GLUCOSE 109 MG/DL (70-105); POTASSIUM 4.3 MMOL/L (3.6-5.0); SODIUM 140 MMOL/L (135-145)
--- NOTE | 2019-01-31 14:21 | Diagnostic Imaging Report ---
INDICATION: Preoperative evaluation, history of nasal polyps. Evaluation prior to otolaryngological surgery. History of a prior cardiac surgery. TECHNIQUE: Two view chest 11:06 AM CORRELATION STUDY: 08/04/2014 FINDINGS: Postop changes of sternotomy. Heart size, mediastinum generally stable with tortuous course of the thoracic aorta. Vascular overall within normal limits. Chronic appearing change about lung parenchyma. No consolidating infiltrate. No effusion. Slight asymmetric elevated right diaphragm and eventration of the diaphragm. Mild advanced degenerative change of the thoracic spine slightly accentuated thoracic kyphotic curvature. IMPRESSION: 1. Post sternotomy changes. Negative for acute cardiopulmonary abnormality. Chronic-appearing change of the lung parenchyma. Dictated by: Dictated on workstation # [id number]
== END 2019-01-31 14:32 | disposition home or self-care (01) ==
LOC: PREOP 10:25
PROVIDERS: ATTEND Otolaryngology Otolaryngology/Facial Plastic Surgery
DX: Z01.810 Encounter for preprocedural cardiovascular examination (principal); Z01.812 Encounter for preprocedural laboratory examination; Z11.2 Encounter for screening for other bacterial diseases; J32.9 Chronic sinusitis, unspecified
CPT/HCPCS: 36415; 71046; 80048; 85025; 87081; 93005

== ENCOUNTER 2019-02-08 07:45 | Day surgery (SDC) | payer MEDICARE, OTHER ==
[~2019-02-08] VITALS: Ht 170.2 cm; Wt 85.3 kg
[2019-02-08] VITALS (13 sets, daily range): BP systolic 106–162; BP diastolic 63–125
[~2019-02-08 07:45] MED LIST changes: +CETI10TA17 PO; +MAGN400C PO; +TRIA16.99 NS
[2019-02-08] MEDS ORDERED: LACTATED RINGERS 1,000 ML IV PRN (08:10)
[2019-02-08] MEDS ORDERED: HYDROCORTISONE 100 MG/2 ML (Solu-CORTEF) VIAL IV ONE (08:15)
[2019-02-08] MEDS ORDERED: CEFUROXIME INJECTION 750 MG in WATER (STERILE) FOR INJECTION 7.5 ML IV SCH (08:30)
--- NOTE | 2019-02-08 08:33 | Progress Note-Pre Operative ---
Pre-Operative Progress Note H&P Reviewed The H&P was reviewed, patient examined and no changes noted. Date Seen by Provider: Feb 08, 2019 Time Seen by Provider: 08:00 Date H&P Reviewed: Feb 08, 2019 Time H&P Reviewed: 08:00 Pre-Operative Diagnosis: Bialt Chronic Sinusitis with Nasal Polyps, Bilat Hyper of Inf Turbs ALYSE SANTANA MD Feb 08, 2019 08:32
[2019-02-08] MEDS ORDERED: COCAINE HCL 4% 2 ML SYR ONE (08:50)
[2019-02-08] MEDS ORDERED: LIDOCAINE/EPI 1%-1:100,000 (XYLOCAINE) 20ML ONE (08:51)
[2019-02-08] MEDS ORDERED: PHENYLEPHRINE 0.5% NASAL SPR (NEO-SYNEPHRINE) REG ONE (08:51)
[2019-02-08] MEDS ORDERED: BSS 15 ML ONE (08:51)
[2019-02-08] MEDS ORDERED: proPOfol 200 MG/20 ML (DIPRIVAN) VIAL IV ONE (09:05)
[2019-02-08] MEDS ORDERED: SEVOFLURANE (ULTANE) 15 ML INHAL SOLN ONE (09:05)
[2019-02-08] MEDS ORDERED: ONDANSETRON 4 MG/2 ML (SDV) Z0FRAN ONE (09:05)
[2019-02-08] MEDS ORDERED: LIDOCAINE PF 2% 5 ML (XYLOCAINE) VIAL ONE (09:05)
[2019-02-08] MEDS ORDERED: DEXAMETHASONE 10 MG/ML (DECADRON) 1 ML VIAL ONE (09:05)
[2019-02-08] MEDS ORDERED: fentaNYL INJECTION 100 MCG/2 ML AMP ONE (09:06)
[2019-02-08] MEDS ORDERED: MIDAZOLAM 2 MG/2 ML (VERSED) VIAL ONE (09:10)
[2019-02-08] MEDS ORDERED: ROCURONIUM 10 MG/ML 5 ML SYRINGE IV ONE (09:17)
[2019-02-08] MEDS ORDERED: PHENYLEPHRINE 100 MCG/ML 10 ML (ANESTHESIA) SYR ONE (10:04)
[2019-02-08] MEDS ORDERED: GLYCOPYRROLATE 0.2 MG/ML (ROBINUL) 2 ML VIAL ONE (10:32)
[2019-02-08] MEDS ORDERED: NEOSTIGMINE 1 MG/ML 5 ML SYRINGE ONE (10:32)
[2019-02-08] MEDS ORDERED: D5 1/2 NS W/KCL 20 MEQ/L 1,000 ML IV SCH (10:39)
--- NOTE | 2019-02-08 10:39 | Progress Note-Post Operative ---
Post-Operative Progess Note Surgeon (s)/Brick Unloader Tender (s) Surgeon ALYSE SANTANA MD Brick Unloader Tender n/a Pre-Operative Diagnosis Bialt Chronic Sinusitis with Nasal Polyps, Bilat Hyper of Inf Turbs Post-Operative Diagnosis same Post-Op Procedure Note Date of Procedure: Feb 08, 2019 Name of Procedure Performed: Bilat ESS, Bilat Red of Inf Turbs Description & Findings Description and Findings: n/a Anesthesia Type get Estimated Blood Loss minimal Packing DNP Bilat Specimen(s) collected/removed bilat chornic sinus disease with polyps ALYSE SANTANA MD Feb 08, 2019 10:39
[2019-02-08] MEDS ORDERED: HYDROcodone/APAP 5 MG/325 MG (LORTAB) TAB PO PRN (10:45)
[2019-02-08] MEDS ORDERED: PROMETHAZINE INJ 25 MG/ML (PHENERGAN) AMP IVP PRN (10:45)
[2019-02-08] MEDS ORDERED: ACETAMINOPHEN 325 MG TABLET PO PRN (10:45)
[2019-02-08] MEDS ORDERED: predniSONE 20 MG TAB PO ONE (10:45)
[2019-02-08] MEDS ORDERED: LABETALOL HCL 20 MG/4 ML VIAL ONE (10:48)
[2019-02-08] MEDS ORDERED: LABETALOL HCL 100 MG/20 ML VIAL IV PRN (11:00)
[2019-02-08] MEDS ORDERED: ONDANSETRON 4 MG/2 ML (SDV) Z0FRAN IVP PRN (11:00)
[2019-02-08] MEDS ORDERED: MEPERIDINE (DEMEROL) INJ 50 MG/ML IVP ONE (11:00)
[2019-02-08] MEDS ORDERED: morphine INJ 10 MG/ML 1ML (SYR OR VIAL) IVP ONE (11:00)
[2019-02-08] MEDS ORDERED: PROMETHAZINE INJ 25 MG/ML (PHENERGAN) AMP IVP ONE (11:00)
--- NOTE | 2019-02-08 11:00 | Anesthesia-General Post-Op ---
General Patient Condition Mental Status/LOC: Same as Preop Cardiovascular: Satisfactory Nausea/Vomiting: Absent Respiratory: Satisfactory Pain: Controlled Complications: Absent Post Op Complications Complications None Follow Up Care/Instructions Patient Instructions None needed. Anesthesia/Patient Condition Patient Condition Patient is doing well, no complaints, stable vital signs, no apparent adverse anesthesia problems. No complications reported per nursing. CODIE GARZA CRNA Feb 08, 2019 11:00
[2019-02-08] MEDS ORDERED: FAMOTIDINE 20MG/2ML IV (PEPCID) ONE (11:46)
[2019-02-08] MEDS ORDERED: FAMOTIDINE 20MG/2ML IV (PEPCID) IVP ONE (12:15)
[2019-02-08] MEDS ORDERED: HYDR-3812 PO (12:23)
[2019-02-08] MEDS ORDERED: PRD20T PO (12:23)
[2019-02-08] MEDS ORDERED: AMOX-355 PO (12:23)
--- OUTSIDE RECORDS SUMMARY | 2019-02-08 13:21 | XMS REPORT | Continuity of Care Document ---
Author Organization Unknown Address Unknown Allergies Active Description Code Type Severity Reaction Onset Reported/Identified Relationship to Patient Clinical Status Yes No Known Drug Allergies [id number] Drug Allergy Unknown N/A 01/31/2019 Medications There is no data. 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 07/25/2013 VERNELL LANZA, VIDAL Ot 575.11 CHRONIC CHOLECYSTITIS 03/21/2014 VERNELL LANZA, VIDAL Ot 530.11 REFLUX ESOPHAGITIS 03/21/2014 VERNELL LANZA, VIDAL Ot 535.50 UNSP GASTRITIS GASTRODUODENITIS W/O ME 03/21/2014 VERNELL LANZA, VIDAL Ot 553.3 DIAPHRAGMATIC HERNIA 08/04/2014 JUSTIN LANZA, SUKHWINDER Garcia Ot 789.00 08/04/2014 VIDAL MATT MD Ot 553.21 08/04/2014 VIDAL MATT MD Ot 575.11 08/04/2014 VIDAL MATT MD Ot V72.63 08/04/2014 VERNELL LANZA, VIDAL Ot V72.81 08/04/2014 VERNELL LANZA, VIDAL Ot V72.83 08/04/2014 VERNELL LANZA, VIDAL Ot V74.8 08/04/2014 DONNA LANZA, EDITH Ot 401.9 08/04/2014 DONNA LANZA, EDITH Ot V10.05 08/04/2014 DONNA LANZA, EDITH Ot V45.72 08/04/2014 DONNA LANZA, EDITH Ot [...] 08/05/2015 DONNA LANZA, EDITH Ot I10 08/05/2015 DONNA LANZA, EDITH Ot Z08 08/05/2015 DONNA LANZA, EDITH Ot Z79.899 08/05/2015 DONNA LANZA, EDITH Ot Z85.038 09/08/2015 EDITH THOMPSON MD Ot I10 ESSENTIAL (PRIMARY) HYPERTENSION 09/08/2015 DONNA LANZA, EDITH Ot Z08 ENCNTR FOR FOLLOW-UP EXAM AFTER TRTMT FO 09/08/2015 DONNA LANZA, EDITH Ot Z79.899 OTHER RESIDENTIAL (CURRENT) DRUG THERAPY 09/08/2015 EDITH THOMPSON MD Ot Z85.038 PERSONAL HISTORY OF MALIGNANT NEOPLASM O 04/12/2016 SUKHWINDER ANDERSON MD Ot R19.7 DIARRHEA, UNSPECIFIED 04/15/2016 SUKHWINDER ANDERSON MD Ot R19.7 DIARRHEA, UNSPECIFIED 07/10/2016 SUKHWINDER ANDERSON MD Ot R19.7 DIARRHEA, UNSPECIFIED 08/02/2016 EDITH THOMPSON MD, Ot I10 ESSENTIAL (PRIMARY) HYPERTENSION 08/02/2016 EDITH THOMPSON MD, Ot Z08 ENCNTR FOR FOLLOW-UP EXAM AFTER TRTMT FO 08/02/2016 EDITH THOMPSON MD Ot Z79.899 OTHER LOG POND WORKER (CURRENT) DRUG THERAPY 08/02/2016 EDITH THOMPSON MD Ot Z85.038 PERSONAL HISTORY OF MALIGNANT NEOPLASM O 09/08/2016 EDITH THOMPSON MD, Ot I10 ESSENTIAL (PRIMARY) HYPERTENSION 09/08/2016 EDITH THOMPSON MD, Ot Z08 ENCNTR FOR FOLLOW-UP EXAM AFTER TRTMT FO 09/08/2016 EDITH THOMPSON MD, Ot Z79.899 OTHER LOG POND WORKER (CURRENT) DRUG THERAPY 09/08/2016 EDITH THOMPSON MD, Ot Z85.038 PERSONAL HISTORY OF MALIGNANT NEOPLASM O 06/06/2017 JUSTIN LANZA, SUKHWINDER Garcia Ot 789.00 ABDOMINAL PAIN, UNSPECIFIED SITE 06/06/2017 VIDAL MATT MD Ot 553.21 INCISIONAL HERNIA 06/06/2017 VIDAL MATT MD Ot 575.11 CHRONIC CHOLECYSTITIS 06/06/2017 VIDAL MATT MD Ot V72.63 PRE-PROCEDURAL LABORATORY EXAMINATION 06/06/2017 VIDAL MATT MD Ot V72.81 [id number] CARDIOVASCULAR 06/06/2017 VIDAL MATT MD Ot V72.83 [...] ABDOMINAL PAIN, UNSPECIFIED SITE 06/06/2017 VIDAL MATT MD, Ot V72.84 EXAM PRE-OPERATIVE NOS 06/06/2017 SUKHWINDER ANDERSON MD Ot 786.2 COUGH 06/06/2017 SUKHWINDER ANDERSON MD, Ot I25.10 ATHSCL HEART DISEASE OF [place] CORONARY 06/06/2017 SUKHWINDER ANDERSON MD Ot N40.0 ENLARGED PROSTATE WITHOUT LOWER URINARY 06/06/2017 SUKHWINDER ANDERSON MD, Ot Z79.899 OTHER RESIDENTIAL (CURRENT) DRUG THERAPY 06/06/2017 VIDAL MATT MD, Ot Z01.818 ENCOUNTER FOR OTHER PREPROCEDURAL EXAMIN 06/06/2017 SUKHWINDER ANDERSON MD Ot R19.7 DIARRHEA, UNSPECIFIED 06/06/2017 EDITH THOMPSON MD, Ot I10 ESSENTIAL (PRIMARY) HYPERTENSION 06/06/2017 EDITH THOMPSON MD, Ot Z08 ENCNTR FOR FOLLOW-UP EXAM AFTER TRTMT FO 06/06/2017 EDITH THOMPSON MD, Ot Z79.899 OTHER RESIDENTIAL (CURRENT) DRUG THERAPY 06/06/2017 EDITH THOMPSON MD, Ot Z85.038 PERSONAL HISTORY OF MALIGNANT NEOPLASM O 06/09/2017 SUKHWINDER ANDERSON MD Ot 789.00 ABDOMINAL PAIN, UNSPECIFIED SITE 06/09/2017 VIDAL MATT MD Ot 553.21 INCISIONAL HERNIA 06/09/2017 VIDAL MATT MD Ot 575.11 CHRONIC CHOLECYSTITIS 06/09/2017 VIDAL MATT MD Ot V72.63 PRE-PROCEDURAL LABORATORY EXAMINATION 06/09/2017 VIDAL MATT MD Ot V72.81 [id number] CARDIOVASCULAR 06/09/2017 VIDAL MATT MD Ot V72.83 EXAM PRE-OPERATIVE NEC 06/09/2017 VIDAL MATT MD Ot V74.8 SCREEN-BACTERIAL DIS NEC 06/09/2017 EDITH THOMPSON MD Ot 401.9 HYPERTENSION NOS 06/09/2017 EDITH THOMPSON MD Ot V10.05 HX OF COLONIC MALIGNANCY 06/09/2017 EDITH THOMPSON MD Ot V45.72 ACQRD ABSENCE [...] V72.84 EXAM PRE-OPERATIVE NOS 06/09/2017 SUKHWINDER ANDERSON MD Ot 786.2 COUGH 06/09/2017 SUKHWINDER ANDERSON MD, Ot I25.10 ATHSCL HEART DISEASE OF [place] CORONARY 06/09/2017 SUKHWINDER ANDERSON MD Ot N40.0 ENLARGED PROSTATE WITHOUT LOWER URINARY 06/09/2017 SUKHWINDER ANDERSON MD, Ot Z79.899 OTHER LOG POND WORKER (CURRENT) DRUG THERAPY 06/09/2017 VIDAL MATT MD Ot Z01.818 ENCOUNTER FOR OTHER PREPROCEDURAL EXAMIN 06/09/2017 SUKHWINDER ANDERSON MD Ot R19.7 DIARRHEA, UNSPECIFIED 06/09/2017 EDITH THOMPSON MD Ot I10 ESSENTIAL (PRIMARY) HYPERTENSION 06/09/2017 EDITH THOMPSON MD, Ot Z08 ENCNTR FOR FOLLOW-UP EXAM AFTER TRTMT FO 06/09/2017 EDTIH THOMPSON MD, Ot Z79.899 OTHER RESIDENTIAL (CURRENT) DRUG THERAPY 06/09/2017 EDITH THOMPSON MD Ot Z85.038 PERSONAL HISTORY OF MALIGNANT NEOPLASM O 06/09/2017 DMITRI LANZA FACC, GITA FACP CCDS Ot E78.4 OTHER HYPERLIPIDEMIA 06/09/2017 DMITRI LANZA FACC, ALI FACP CCDS Ot I10 ESSENTIAL (PRIMARY) HYPERTENSION 06/09/2017 DMITRI LANZA FACC, ALI FACP CCDS Ot I25.10 ATHSCL HEART DISEASE OF [place] CORONARY 06/09/2017 DMITRI LANZA FACC, ALI FACP CCDS Ot I48.0 PAROXYSMAL ATRIAL FIBRILLATION 06/09/2017 DMITRI LANZA FACC, ALI FACP CCDS Ot R06.02 SHORTNESS OF BREATH 06/09/2017 DMITRI LANZA FACC, ALI FACP CCDS Ot Z79.01 LOG POND WORKER (CURRENT) USE OF ANTICOAGULANT 06/12/2017 DMITRI LANZA FACC, ALI FACP CCDS Ot E78.4 OTHER HYPERLIPIDEMIA 06/12/2017 DMITRI MD FACC, ALI FACP CCDS Ot I10 ESSENTIAL (PRIMARY) HYPERTENSION 06/12/2017 DMITRI LANZA FACC, ALI FACP CCDS Ot I25.10 ATHSCL HEART DISEASE OF [place] CORONARY 06/12/2017 DMITRI LANZA FACC, ALI FACP CCDS Ot I48.0 PAROXYSMAL ATRIAL FIBRILLATION 06/12/2017 DMITRI LANZA FACC, ALI FACP CCDS Ot R06.02 SHORTNESS OF BREATH 06/12/2017 DMITRI LANZA FACC, ALI FACP CCDS Ot Z79.01 LOG POND WORKER (CURRENT) USE OF ANTICOAGULANT 06/16/2017 DMITRI LANZA FACC, ALI FACP CCDS Ot E78.4 OTHER HYPERLIPIDEMIA 06/16/2017 DMITRI LANZA FACC, ALI FACP CCDS Ot I10 ESSENTIAL (PRIMARY) HYPERTENSION 06/16/2017 DMITRI LANZA FACC, ALI FACP CCDS Ot I25.10 ATHSCL HEART DISEASE OF [place] CORONARY 06/16/2017 DMITRI LANZA FACC, ALI FACP CCDS Ot I48.0 PAROXYSMAL ATRIAL FIBRILLATION 06/16/2017 DMITRI LANZA FACC, ALI FACP CCDS Ot R06.02 SHORTNESS OF BREATH 06/16/2017 DMITRI LANZA FACC, ALI FACP CCDS Ot Z79.01 LOG POND WORKER (CURRENT) USE OF ANTICOAGULANT 06/28/2017 DMITRI LANZA FACC, ALI FACP CCDS Ot E78.4 OTHER HYPERLIPIDEMIA 06/28/2017 DMITRI LANZA FACC, ALI FACP CCDS Ot I10 ESSENTIAL (PRIMARY) HYPERTENSION 06/28/2017 DMITRI LANZA FACC, ALI FACP CCDS Ot I25.10 ATHSCL HEART DISEASE OF [place] CORONARY 06/28/2017 DMITRI LANZA FACC, ALI FACP CCDS Ot I48.0 PAROXYSMAL ATRIAL FIBRILLATION 06/28/2017 DMITRI LANZA FACC, ALI FACP CCDS Ot R06.02 SHORTNESS OF BREATH 06/28/2017 DMITRI MD FACC, ALI FACP CCDS Ot Z79.01 LOG POND WORKER (CURRENT) USE OF ANTICOAGULANT 07/06/2017 DMITRI LANZA FACC, ALI FACP CCDS Ot E78.4 OTHER HYPERLIPIDEMIA 07/06/2017 DMITRI LANZA FACC, ALI FACP CCDS Ot I10 ESSENTIAL (PRIMARY) HYPERTENSION 07/06/2017 DMITRI LANZA FACC, ALI FACP CCDS Ot I25.10 ATHSCL HEART DISEASE OF [place] CORONARY 07/06/2017 DMITRI LANZA FACC, ALI FACP CCDS Ot I48.0 PAROXYSMAL ATRIAL FIBRILLATION 07/06/2017 DMITRI LANZA FACC, ALI FACP CCDS Ot R06.02 SHORTNESS OF BREATH 07/06/2017 MDITRI LANZA FACC, ALI FACP CCDS Ot Z79.01 RESIDENTIAL (CURRENT) USE OF ANTICOAGULANT 07/11/2017 EDITH THOMPSON MD, Ot I10 ESSENTIAL (PRIMARY) HYPERTENSION 07/11/2017 EDITH THOMPSON MD, Ot Z08 ENCNTR FOR FOLLOW-UP EXAM AFTER TRTMT FO 07/11/2017 EDITH THOMPSON MD Ot Z79.899 OTHER RESIDENTIAL (CURRENT) DRUG THERAPY 07/11/2017 EDITH THOMPSON MD Ot Z85.038 PERSONAL HISTORY OF MALIGNANT NEOPLASM O 07/11/2017 EDITH THOMPSON MD, Ot I10 ESSENTIAL (PRIMARY) HYPERTENSION 07/11/2017 EDITH THOMPSON MD, Ot Z08 ENCNTR FOR FOLLOW-UP EXAM AFTER TRTMT FO 07/11/2017 EDITH THOMPSON MD Ot Z79.899 OTHER LOG POND WORKER (CURRENT) DRUG THERAPY 07/11/2017 EDITH THOMPSON MD, Ot Z85.038 PERSONAL HISTORY OF MALIGNANT NEOPLASM O 07/11/2017 JUSTIN LANZA, SUKHWINDER Garcia Ot 789.00 ABDOMINAL PAIN, UNSPECIFIED SITE 07/11/2017 VIDAL MATT MD Ot 553.21 INCISIONAL HERNIA 07/11/2017 VIDAL MATT MD Ot 575.11 CHRONIC CHOLECYSTITIS 07/11/2017 VIDAL MATT MD, Ot V72.63 PRE-PROCEDURAL LABORATORY EXAMINATION 07/11/2017 VIDAL MATT MD, Ot V72.81 [id number]-EYEYVJMLE CARDIOVASCULAR 07/11/2017 VIDAL MATT MD, Ot V72.83 EXAM PRE-OPERATIVE NEC 07/11/2017 VIDAL MATT MD, Ot V74.8 SCREEN-BACTERIAL DIS NEC 07/11/2017 EDITH [...] MD Ot 786.2 COUGH 07/11/2017 SUKHWINDER ANDERSON MD, Ot I25.10 ATHSCL HEART DISEASE OF [place] CORONARY 07/11/2017 SUKHWINDER ANDERSON MD Ot N40.0 ENLARGED PROSTATE WITHOUT LOWER URINARY 07/11/2017 SUKHWINDER ANDERSON MD Ot Z79.899 OTHER RESIDENTIAL (CURRENT) DRUG THERAPY 07/11/2017 VIDAL MATT MD Ot Z01.818 ENCOUNTER FOR OTHER PREPROCEDURAL EXAMIN 07/11/2017 SUKHWINDER ANDERSON MD Ot R19.7 DIARRHEA, UNSPECIFIED 07/11/2017 EDITH THOMPSON MD Ot I10 ESSENTIAL (PRIMARY) HYPERTENSION 07/11/2017 EDITH THOMPSON MD, Ot Z08 ENCNTR FOR FOLLOW-UP EXAM AFTER TRTMT FO 07/11/2017 EDITH THOMPSON MD, Ot Z79.899 OTHER RESIDENTIAL (CURRENT) DRUG THERAPY 07/11/2017 EDITH THOMPSON MD Ot Z85.038 PERSONAL HISTORY OF MALIGNANT NEOPLASM O 07/11/2017 DMITRI LANZA FACC, ALI FACP CCDS Ot E78.4 OTHER HYPERLIPIDEMIA 07/11/2017 DMITRI LANZA FACC, ALI FACP CCDS Ot I10 ESSENTIAL (PRIMARY) HYPERTENSION 07/11/2017 DMITRI LANZA FACC, ALI FACP CCDS Ot I25.10 ATHSCL HEART DISEASE OF [place] CORONARY 07/11/2017 DMITRI LANZA FACC, ALI FACP CCDS Ot I48.0 PAROXYSMAL ATRIAL FIBRILLATION 07/11/2017 DMITRI LANZA FACC, ALI FACP CCDS Ot R06.02 SHORTNESS OF BREATH 07/11/2017 DMITRI LANZA FACC, ALI FACP CCDS Ot Z79.01 LOG POND WORKER (CURRENT) USE OF ANTICOAGULANT 07/11/2017 DMITRI LANZA FACC, ALI FACP CCDS Ot E78.4 OTHER HYPERLIPIDEMIA 07/11/2017 DMITRI LANZA FACC, ALI FACP CCDS Ot I10 ESSENTIAL (PRIMARY) HYPERTENSION 07/11/2017 DMITRI LANZA FACC, ALI FACP CCDS Ot I25.10 ATHSCL HEART DISEASE OF [place] CORONARY 07/11/2017 DMITRI LANZA FACC, ALI FACP CCDS Ot I48.0 PAROXYSMAL ATRIAL FIBRILLATION 07/11/2017 DMITRI LANZA FACC, ALI FACP CCDS Ot R06.02 SHORTNESS OF BREATH 07/11/2017 DMITRI LANZA FACC, ALI FACP CCDS Ot Z79.01 RESIDENTIAL (CURRENT) USE OF ANTICOAGULANT 07/14/2017 DMITRI LANZA FACC, ALI FACP CCDS Ot E78.4 OTHER HYPERLIPIDEMIA 07/14/2017 DMITRI LANZA FACC, ALI FACP CCDS Ot I10 ESSENTIAL (PRIMARY) HYPERTENSION 07/14/2017 DMITRI LANZA FACC, ALI FACP CCDS Ot I25.10 ATHSCL HEART DISEASE OF [place] CORONARY 07/14/2017 DMITRI LANZA FACC, ALI FACP CCDS Ot I48.0 PAROXYSMAL ATRIAL FIBRILLATION 07/14/2017 DMITRI LANZA FACC, ALI FACP CCDS Ot R06.02 SHORTNESS OF BREATH 07/14/2017 DMITRI LANZA FACC, ALI FACP CCDS Ot Z79.01 LOG POND WORKER (CURRENT) USE OF ANTICOAGULANT 07/24/2017 DMITRI LANZA FACC, ALI FACP CCDS Ot E78.4 OTHER HYPERLIPIDEMIA 07/24/2017 DMITRI LANZA FACC, ALI FACP CCDS Ot I10 ESSENTIAL (PRIMARY) HYPERTENSION 07/24/2017 DMITRI LANZA FACC, ALI FACP CCDS Ot I25.10 ATHSCL HEART DISEASE OF [place] CORONARY 07/24/2017 DMITRI LANZA FAC, ALI FACP CCDS Ot I48.0 PAROXYSMAL ATRIAL FIBRILLATION 07/24/2017 DMITRI LANZA FAC, ALI FACP CCDS Ot R06.02 SHORTNESS OF BREATH 07/24/2017 DMITRI LANZA FAC, ALI FACP CCDS Ot Z79.01 RESIDENTIAL (CURRENT) USE OF ANTICOAGULANT 07/31/2017 EDITH THOMPSON MD, Ot I10 ESSENTIAL (PRIMARY) HYPERTENSION 07/31/2017 EDITH THOMPSON MD, Ot Z08 ENCNTR FOR FOLLOW-UP EXAM AFTER TRTMT FO 07/31/2017 EDITH THOMPSON MD, Ot Z79.899 OTHER RESIDENTIAL (CURRENT) DRUG THERAPY 07/31/2017 EDITH THOMPSON MD, Ot Z85.038 PERSONAL HISTORY OF MALIGNANT NEOPLASM O 08/08/2017 VIDAL MATT MD, Ot Z01.818 ENCOUNTER FOR OTHER PREPROCEDURAL EXAMIN 08/08/2017 VIDAL MATT MD, Ot Z85.038 PERSONAL HISTORY OF MALIGNANT NEOPLASM O 08/08/2017 VIDAL MATT MD, Ot Z86.010 PERSONAL HISTORY OF COLONIC POLYPS 08/09/2017 VIDAL MATT MD, Ot E78.00 PURE HYPERCHOLESTEROLEMIA, UNSPECIFIED 08/09/2017 VIDAL MATT MD, Ot I10 ESSENTIAL (PRIMARY) HYPERTENSION 08/09/2017 VIDAL MATT MD, Ot I25.10 ATHSCL HEART DISEASE OF [place] CORONARY 08/09/2017 VIDAL MATT MD, Ot I48.91 UNSPECIFIED ATRIAL FIBRILLATION 08/09/2017 VIDAL MATT MD, Ot K21.9 GASTRO-ESOPHAGEAL REFLUX DISEASE WITHOUT 08/09/2017 VIDAL MATT MD, Ot K57.30 DVRTCLOS OF LG INT W/O PERFORATION OR AB 08/09/2017 VIDAL MATT MD, Ot K59.00 CONSTIPATION, UNSPECIFIED 08/09/2017 VIDAL MATT MD, Ot K64.1 SECOND DEGREE HEMORRHOIDS 08/09/2017 VIDAL MATT MD, Ot R10.32 LEFT LOWER QUADRANT PAIN 08/09/2017 VIDAL MATT MD, Ot Z79.01 RESIDENTIAL (CURRENT) USE OF ANTICOAGULANT 08/09/2017 VIDAL MATT MD, Ot Z79.82 RESIDENTIAL (CURRENT) USE OF ASPIRIN 08/09/2017 VIDAL MATT MD, Ot Z79.899 OTHER RESIDENTIAL (CURRENT) DRUG THERAPY 08/09/2017 VIDAL MATT MD, Ot Z85.038 PERSONAL HISTORY OF MALIGNANT NEOPLASM O 08/09/2017 VIDAL MATT MD, Ot Z86.010 PERSONAL HISTORY OF COLONIC POLYPS 08/09/2017 VIDAL MATT MD, Ot Z87.891 PERSONAL HISTORY OF NICOTINE DEPENDENCE 08/11/2017 EDITH THOMPSON MD, Ot I10 ESSENTIAL (PRIMARY) HYPERTENSION 08/11/2017 EDITH THOMPSON MD, Ot Z08 ENCNTR FOR FOLLOW-UP EXAM AFTER TRTMT FO 08/11/2017 EDITH THOMPSON MD, Ot Z79.899 OTHER RESIDENTIAL (CURRENT) DRUG THERAPY 08/11/2017 EDITH THOMPSON MD, Ot Z85.038 PERSONAL HISTORY OF MALIGNANT NEOPLASM O 09/08/2017 VIDAL MATT MD, Ot E78.00 PURE HYPERCHOLESTEROLEMIA, UNSPECIFIED 09/08/2017 VIDAL MATT MD, Ot I10 ESSENTIAL (PRIMARY) HYPERTENSION 09/08/2017 VIDAL MATT MD, Ot I25.10 ATHSCL HEART DISEASE OF [place] CORONARY 09/08/2017 VIDAL MATT MD, Ot I48.91 UNSPECIFIED ATRIAL FIBRILLATION 09/08/2017 VIDAL MATT MD, Ot K21.9 GASTRO-ESOPHAGEAL REFLUX DISEASE WITHOUT 09/08/2017 VIDAL MATT MD, Ot K57.30 DVRTCLOS OF LG INT W/O PERFORATION OR AB 09/08/2017 VIDAL MATT MD, Ot K59.00 CONSTIPATION, UNSPECIFIED 09/08/2017 VIDAL MATT MD, Ot K64.1 SECOND DEGREE HEMORRHOIDS 09/08/2017 VIDAL MATT MD, Ot R10.32 LEFT LOWER QUADRANT PAIN 09/08/2017 VIDAL MATT MD, Ot Z79.01 RESIDENTIAL (CURRENT) USE OF ANTICOAGULANT 09/08/2017 VIDAL MATT MD, Ot Z79.82 RESIDENTIAL (CURRENT) USE OF ASPIRIN 09/08/2017 VIDAL MATT MD, Ot Z79.899 OTHER RESIDENTIAL (CURRENT) DRUG THERAPY 09/08/2017 VIDAL MATT MD, Ot Z85.038 PERSONAL HISTORY OF MALIGNANT NEOPLASM O 09/08/2017 VIDAL MATT MD, Ot Z86.010 PERSONAL HISTORY OF COLONIC POLYPS 09/08/2017 VIDAL MATT MD, Ot Z87.891 PERSONAL HISTORY OF NICOTINE DEPENDENCE 09/10/2017 EDITH THOMPSON MD, Ot I10 ESSENTIAL (PRIMARY) HYPERTENSION 09/10/2017 EDITH THOMPSON MD, Ot Z08 ENCNTR FOR FOLLOW-UP EXAM AFTER TRTMT FO 09/10/2017 EDITH THOMPSON MD, Ot Z12.5 ENCOUNTER FOR SCREENING FOR MALIGNANT NE 09/10/2017 EDITH THOMPSON MD, Ot Z79.899 OTHER LOG POND WORKER (CURRENT) DRUG THERAPY 09/10/2017 EDITH THOMPSON MD, Ot Z85.038 PERSONAL HISTORY OF MALIGNANT NEOPLASM O 08/20/2018 SUKHWINDER ANDERSON MD Ot 789.00 ABDOMINAL PAIN, UNSPECIFIED SITE 08/20/2018 VIDAL MATT MD Ot 553.21 INCISIONAL HERNIA 08/20/2018 VIDAL MATT MD Ot 575.11 CHRONIC CHOLECYSTITIS 08/20/2018 VIDAL MATT MD Ot V72.63 PRE-PROCEDURAL LABORATORY EXAMINATION 08/20/2018 VIDAL MATT MD Ot V72.81 [id number] CARDIOVASCULAR 08/20/2018 VIDAL MATT MD Ot V72.83 EXAM PRE-OPERATIVE NEC 08/20/2018 VIDAL MATT MD Ot V74.8 SCREEN-BACTERIAL DIS NEC 08/20/2018 EDITH THOMPSON MD Ot 401.9 HYPERTENSION NOS 08/20/2018 EDITH THOMPSON MD Ot V10.05 HX OF COLONIC MALIGNANCY 08/20/2018 EDITH THOMPSON MD Ot V45.72 ACQRD ABSENCE INTESTINE - LARGE/SMALL 08/20/2018 EDITH THOMPSON MD, Ot V58.69 OTH MED,LT,CURRENT USE 08/20/2018 EDITH THOMPSON MD, Ot V67.09 SURGERY FOLLOW-UP, OTHER SURGERY 08/20/2018 SUKHWINDER ANDERSON MD Ot 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 08/20/2018 SUKHWINDER ANDERSON MD Ot 553.3 DIAPHRAGMATIC HERNIA 08/20/2018 SUKHWINDER ANDERSON MD Ot 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 08/20/2018 SUKHWINDER ANDERSON MD Ot 593.2 CYST OF KIDNEY, ACQUIRED 08/20/2018 SUKHWINDER ANDERSON MD Ot 789.00 ABDOMINAL PAIN, UNSPECIFIED SITE 08/20/2018 VERNELL LANZA, VIDAL Ot V72.84 EXAM PRE-OPERATIVE NOS 08/20/2018 SUKHWINDER ANDERSON MD Ot 786.2 COUGH 08/20/2018 SUKHWINDER ANDERSON MD Ot I25.10 ATHSCL HEART DISEASE OF [place] CORONARY 08/20/2018 SUKHWINDER ANDERSON MD Ot N40.0 ENLARGED PROSTATE WITHOUT LOWER URINARY 08/20/2018 SUKHWINDER ANDERSON MD Ot Z79.899 OTHER LOG POND WORKER (CURRENT) DRUG THERAPY 08/20/2018 VERNELL LANZA, VIDAL Ot Z01.818 ENCOUNTER FOR OTHER PREPROCEDURAL EXAMIN 08/20/2018 SUKHWINDER ANDERSON MD Ot R19.7 DIARRHEA, UNSPECIFIED 08/20/2018 DMITRI LANZA FACC, ALI FACP CCDS Ot E78.4 OTHER HYPERLIPIDEMIA 08/20/2018 DMITRI LANZA FACC, ALI FACP CCDS Ot I10 ESSENTIAL (PRIMARY) HYPERTENSION 08/20/2018 DMITRI LANZA FACC, ALI FACP CCDS Ot I25.10 ATHSCL HEART DISEASE OF [place] CORONARY 08/20/2018 DMITRI WELCHC, ALI FACP CCDS Ot I48.0 PAROXYSMAL ATRIAL FIBRILLATION 08/20/2018 DMITRI LANZA FACC, ALI FACP CCDS Ot R06.02 SHORTNESS OF BREATH 08/20/2018 DMITRI LANZA FACC, ALI FACP CCDS Ot Z79.01 LOG POND WORKER (CURRENT) USE OF ANTICOAGULANT 08/20/2018 DMITRI LANZA FACC, ALI FACP CCDS Ot E78.4 OTHER HYPERLIPIDEMIA 08/20/2018 DMITRI LANZA FACC, ALI FACP CCDS Ot I10 ESSENTIAL (PRIMARY) HYPERTENSION 08/20/2018 DMITRI WELCHC, ALI FACP CCDS Ot I25.10 ATHSCL HEART DISEASE OF [place] CORONARY 08/20/2018 DMITRI LANZA FACC, ALI FACP CCDS Ot I48.0 PAROXYSMAL ATRIAL FIBRILLATION 08/20/2018 DMITRI LANZA FACC, ALI FACP CCDS Ot R06.02 SHORTNESS OF BREATH 08/20/2018 DMITRI WELCHC, ALI FACP CCDS Ot Z79.01 LOG POND WORKER (CURRENT) USE OF ANTICOAGULANT 08/20/2018 EDITH THOMPSON MD Ot I10 ESSENTIAL (PRIMARY) HYPERTENSION 08/20/2018 EDITH THOMPSON MD Ot Z08 ENCNTR FOR FOLLOW-UP EXAM AFTER TRTMT FO 08/20/2018 EDITH THOMPSON MD, Ot Z79.899 OTHER LOG POND WORKER (CURRENT) DRUG THERAPY 08/20/2018 EDITH THOMPSON MD, Ot Z85.038 PERSONAL HISTORY OF MALIGNANT NEOPLASM O 08/21/2018 SUKHWINDER ANDERSON MD Ot I86.1 SCROTAL VARICES 08/21/2018 SUKHWINDER ANDERSON MD Ot N43.3 HYDROCELE, UNSPECIFIED 09/12/2018 SUKHWINDER ANDERSON MD Ot I86.1 SCROTAL VARICES 09/12/2018 SUKHWINDER ANDERSON MD, Ot N43.3 HYDROCELE, UNSPECIFIED 12/20/2018 SUKHWINDER ANDERSON MD, Ot N43.2 OTHER HYDROCELE 12/20/2018 SUKHWINDER ANDERSON MD Ot N50.89 OTHER SPECIFIED DISORDERS OF THE MALE GE 01/31/2019 SUKHWINDER ANDERSON MD Ot R19.7 DIARRHEA, UNSPECIFIED 01/31/2019 EDITH THOMPSON MD, Ot I10 ESSENTIAL (PRIMARY) HYPERTENSION 01/31/2019 EDITH THOMPSON MD, Ot Z08 ENCNTR FOR FOLLOW-UP EXAM AFTER TRTMT FO 01/31/2019 EDITH THOMPSON MD, Ot Z79.899 OTHER LOG POND WORKER (CURRENT) DRUG THERAPY 01/31/2019 EDITH THOMPSON MD, Ot Z85.038 PERSONAL HISTORY OF MALIGNANT NEOPLASM O 01/31/2019 ALYSE SANTANA MD Ot J32.0 CHRONIC MAXILLARY SINUSITIS 01/31/2019 ALYSE SANTANA MD, Ot J32.2 CHRONIC ETHMOIDAL SINUSITIS 01/31/2019 ALYSE SANTANA MD Ot J33.9 NASAL POLYP, UNSPECIFIED 02/01/2019 ALYSE SANTANA MD, Ot J32.9 CHRONIC SINUSITIS, UNSPECIFIED 02/01/2019 ALYSE SANTANA MD Ot Z01.810 ENCOUNTER FOR PREPROCEDURAL CARDIOVASCUL 02/01/2019 ALYSE SANTANA MD, Ot Z01.812 ENCOUNTER FOR PREPROCEDURAL LABORATORY E 02/01/2019 ALYSE SANTANA MD Ot Z11.2 ENCOUNTER FOR SCREENING FOR OTHER BACTER Procedures There is no data. Results Test Result Range Complete blood count (CBC) with automated white blood cell (WBC) differential - 01/31/19 11:00 Blood leukocytes automated count (number/volume) 4.6 10*3/uL 4.3-11.0 Blood erythrocytes automated count (number/volume) 4.97 10*6/uL 4.35-5.85 Venous blood hemoglobin measurement (mass/volume) 14.9 g/dL 13.3-17.7 Blood hematocrit (volume fraction) 44 % 40-54 Automated erythrocyte mean corpuscular volume 89 [foz_us] 80-99 Automated erythrocyte mean corpuscular hemoglobin (mass per erythrocyte) 30 pg 25-34 Automated erythrocyte mean corpuscular hemoglobin concentration measurement (mass/volume) 34 g/dL 32-36 Automated erythrocyte distribution width ratio 15.3 % 10.0- 14.5 Automated blood platelet count (count/volume) 144 10*3/uL 130-400 Automated blood platelet mean volume measurement 10.2 [foz_us] 7.4-10.4 Automated blood neutrophils/100 leukocytes 53 % 42-75 Automated blood lymphocytes/100 leukocytes 33 % 12-44 Blood monocytes/100 leukocytes 9 % 0-12 Automated blood eosinophils/100 leukocytes 6 % 0-10 Automated blood basophils/100 leukocytes 0 % 0-10 Blood neutrophils automated count (number/volume) 2.4 10*3 1.8-7.8 Blood lymphocytes automated count (number/volume) 1.5 10*3 1.0-4.0 Blood monocytes automated count (number/volume) 0.4 10*3 0.0- 1.0 Automated eosinophil count 0.3 10*3/uL 0.0-0.3 Automated blood basophil count (count/volume) 0.0 10*3/uL 0.0-0.1 Whole blood basic metabolic panel - 01/31/19 11:00 Serum or plasma sodium measurement (moles/volume) 140 mmol/L 135-145 Serum or plasma potassium measurement (moles/volume) 4.3 mmol/L 3.6-5.0 Serum or plasma chloride measurement (moles/volume) 106 mmol/L 98-107 Carbon dioxide 26 mmol/L 21-32 Serum or plasma anion gap determination (moles/volume) 8 mmol/L 5-14 Serum or plasma urea nitrogen measurement (mass/volume) 19 mg/dL 7-18 Serum or plasma creatinine measurement (mass/volume) 0.93 mg/dL 0.60-1.30 Serum or plasma urea nitrogen/creatinine mass ratio 20 NRG Serum or plasma creatinine measurement with calculation of estimated glomerular filtration rate > NRG Serum or plasma glucose measurement (mass/volume) 109 mg/dL 70-105 Serum or plasma calcium measurement (mass/volume) 9.5 mg/dL 8.5-10.1 Methicillin resistant Staphylococcus aureus (MRSA) screening culture - 01/31/19 11:15 Methicillin resistant Staphylococcus aureus (MRSA) screening culture NEG NRG Encounters ACCT No. Visit Date/Time Discharge Status Pt. Type Provider Facility Loc./Unit Complaint [id number] 01/31/2019 10:25:00 01/31/2019 14:32:00 DIS Outpatient ALYSE SANTANA MD [facility] PREOP TURBINATE HYPERTROPHY [id number] 01/09/2019 14:59:00 01/09/2019 23:59:59 CLS Outpatient ALYSE SANTANA MD [facility] RAD CHRONIC SINUSITIS [id number] 11/26/2018 09:49:00 11/26/2018 23:59:59 CLS Outpatient SUKHWINDER ANDERSON MD [facility] RAD SCROTOL MASS F/U [id number] 08/20/2018 10:36:00 08/20/2018 23:59:59 CLS Outpatient SUKHWINDER ANDERSON MD [facility] RAD SCROTAL MASS [id number] 09/11/2017 00:34:00 09/11/2017 23:59:59 CLS Preadmit EDITH THOMPSON MD [facility] ONC [id number] 06/12/2017 10:38:00 09/10/2017 00:01:00 DIS Outpatient EDITH THOMPSON MD [facility] ONC [id number] 08/09/2017 10:43:00 08/09/2017 16:25:00 DIS Outpatient VIDAL MATT MD [facility] ENDO HX COLON CA/HX POLYPS [id number] 08/08/2017 09:34:00 08/08/2017 09:58:00 DIS Outpatient VIDAL MATT MD [facility] PREOP COLONOSCOPY [id number] 06/15/2017 10:41:00 06/15/2017 23:59:59 CLS Outpatient DMITRI LANZA FACC, ALI FACP CCDS [facility] CARD PAF,CAD [id number] 06/06/2017 07:55:00 06/06/2017 23:59:59 CLS Outpatient DMITRI LANZA FACC, ALI FACP CCDS [facility] CARD PAF,SOB [id number] 06/13/2016 10:10:00 09/08/2016 00:01:00 DIS Outpatient EDITH THOMPSON MD [facility] ONC [id number] 07/11/2016 00:08:00 07/11/2016 23:59:59 CLS Preadmit SUKHWINDER ANDERSON MD [facility] LAB DIARRHEA [id number] 04/11/2016 10:40:00 07/10/2016 00:01:00 DIS Outpatient SUKHWINDER ANDERSON MD [facility] LAB DIARRHEA [id number] 07/15/2015 12:50:00 09/08/2015 00:01:00 DIS Outpatient EDITH THOMPSON MD [facility] ONC [id number] 06/24/2015 08:30:00 06/24/2015 12:00:00 DIS Outpatient VIDAL MATT MD [facility] [id number] 06/19/2015 05:39:00 06/19/2015 23:59:59 CLS Outpatient VIDAL MATT MD [facility] PREOP HX COLON CANCER [id number] 06/15/2015 11:21:00 06/15/2015 23:59:59 CLS Outpatient SUKHWINDER ANDERSON MD [facility] LAB [id number] 08/04/2014 10:54:00 08/04/2014 23:59:59 CLS Outpatient SUKHWINDER ANDERSON MD [facility] RAD COUGH [id number] 06/16/2014 09:47:00 06/16/2014 23:59:59 CLS Outpatient EDITH THOMPSON MD [facility] ONC LAB [id number] 03/21/2014 10:15:00 03/21/2014 15:00:00 DIS Outpatient VIDAL MATT MD [facility] GERD [id number] 03/19/2014 07:52:00 03/19/2014 23:59:59 CLS Outpatient VIDAL MATT MD [facility] PREOP GERD [id number] 02/18/2014 09:08:00 02/18/2014 23:59:59 CLS Outpatient SUKHWINDER ANDERSON MD [facility] RAD ABD PAIN [id number] 06/17/2013 10:54:00 09/11/2013 00:01:00 DIS Outpatient [id number] 07/25/2013 10:17:00 07/25/2013 21:50:00 DIS Outpatient VIDLA MATT MD [facility] INCISIONAL HERNIA [id number] 07/24/2013 09:32:00 07/24/2013 23:59:59 CLS Outpatient VIDAL MATT MD [facility] PREOP INCISIONAL HERNIA [id number] 07/05/2013 06:50:00 07/05/2013 23:59:59 CLS Outpatient SUKHWINDER ANDERSON MD [facility] RAD ABD PAIN [id number] 02/08/2019 08:15:00 PEN Preadradha SANTANA MD, ALYSE Fuller [facility] TURBINATE HYPERTROPHY [id number] 01/31/2019 10:34:00 Document Registration [id number] 03/21/2012 06:27:00 Document Registration
--- NOTE | 2019-02-08 15:34 | NUR ---
CALLED IN PREDNISONE 60MG X1 TO [facility].
== END 2019-02-08 13:35 | disposition home or self-care (01) ==
LOC: SDC 07:45
PROVIDERS: ATTEND Otolaryngology Otolaryngology/Facial Plastic Surgery
DX: J32.0 Chronic maxillary sinusitis (principal); J32.2 Chronic ethmoidal sinusitis; J34.3 Hypertrophy of nasal turbinates; I25.10 Atherosclerotic heart disease of native coronary artery without angina pectoris; F32.9 Major depressive disorder, single episode, unspecified; Z86.718 Personal history of other venous thrombosis and embolism; Z79.01 Long term (current) use of anticoagulants; Z79.82 Long term (current) use of aspirin; Z79.899 Other long term (current) drug therapy
CPT/HCPCS: 93005

== ENCOUNTER 2019-10-22 05:36 | Outpatient (CLI) | payer MEDICARE, OTHER ==
[~2019-10-22] VITALS: Ht 172 cm; Wt 82.7 kg
[~2019-10-22 05:36] MED LIST changes: +AMOX-355 PO; +HYDR-3812 PO; +PRD20T PO
[2019-10-22] MEDS ORDERED: CHOL400C9 PO (12:34)
[2019-10-22] MEDS ORDERED: DABI150C5 PO (12:40)
[2019-10-22] MEDS ORDERED: ASPI-586 PO (12:40)
== END 2019-10-22 12:59 | disposition home or self-care (01) ==
LOC: PREOP 05:36
PROVIDERS: ATTEND Surgery
DX: Z01.818 Encounter for other preprocedural examination (principal)

== ENCOUNTER 2020-08-08 11:37 | Emergency (ER) | payer MEDICARE, OTHER ==
[~2020-08-08] VITALS: Ht 172.7 cm; Wt 81.6 kg
[~2020-08-08 11:37] MED LIST changes: +ACHD5005 PO; +ASPI-1238 PO; +ASPI-586 PO; -ASPI-983 PO; +CHOL400C9 PO; -HYDR-3812 PO; -MONT10TA24 PO; +MONT10TA97 PO; +MULT-567 PO; -MULT1TAB69 PO
[2020-08-08 12:47] LABS: BASOPHILS % (AUTO) 0 % (0-10); EOSINOPHILS # (AUTO) 0.1 10^3/uL (0.0-0.3); EOSINOPHILS % (AUTO) 2 % (0-10); HEMATOCRIT 38 % (40-54); HEMOGLOBIN 11.6 g/dL (13.3-17.7); LYMPHOCYTES # (AUTO) 1.4 10^3/uL (1.0-4.0); LYMPHOCYTES % (AUTO) 27 % (12-44); MEAN CORPUSCULAR HEMOGLOBIN 26 pg (25-34); MEAN CORPUSCULAR HGB CONC 30 g/dL (32-36); MEAN CORPUSCULAR VOLUME 85 fL (80-99); MEAN PLATELET VOLUME 9.7 fL (9.0-12.2); MONOCYTES # (AUTO) 0.3 10^3/uL (0.0-1.0); MONOCYTES % (AUTO) 7 % (0-12); NEUTROPHILS # (AUTO) 3.3 10^3/uL (1.8-7.8); NEUTROPHILS % (AUTO) 64 % (42-75); PLATELET COUNT 195 10^3/uL (130-400); WHITE BLOOD COUNT 5.1 10^3/uL (4.3-11.0)
[2020-08-08 13:02] LABS: ALBUMIN 4.5 GM/DL (3.2-4.5); CHLORIDE 105 MMOL/L (98-107); SODIUM 142 MMOL/L (135-145)
[2020-08-08 13:03] LABS: CALCIUM 9.3 MG/DL (8.5-10.1)
[2020-08-08 13:05] LABS: GLUCOSE 114 MG/DL (70-105); TOTAL PROTEIN 7.4 GM/DL (6.4-8.2)
[2020-08-08 13:06] LABS: BILIRUBIN,TOTAL 0.6 MG/DL (0.1-1.0); CARBON DIOXIDE 26 MMOL/L (21-32)
[2020-08-08 13:07] LABS: PROTHROMBIN TIME PATIENT 14.1 SEC (12.2-14.7)
[2020-08-08 13:08] LABS: ALKALINE PHOSPHATASE 80 U/L (40-136); CREATININE SERUM 1.06 MG/DL (0.60-1.30); GFR ESTIMATED > 60
[2020-08-08 13:09] LABS: BUN/CREATININE RATIO 17
[2020-08-08 13:11] LABS: ALANINE AMINOTRANSFERASE 18 U/L (0-55)
--- NOTE | 2020-08-08 13:18 | ED GI ---
General Chief Complaint: Abdominal/GI Problems Stated Complaint: BLOOD IN STOOL Nursing Triage Note: PT AMB TO [facility] 1 WITH COMPLAINT OF BLACK STOOLS. STATES STARTED 07/24. HAS SEEN DR ANDERSON AND HAD HGB OF 10.7. Sepsis Screen: No Definite Risk Source of Information: Patient Exam Limitations: No Limitations History of Present Illness Date Seen by Provider: Aug 08, 2020 Time Seen by Provider: 13:16 Initial Comments To ER with reports of dark stools that began on 1120. He saw Dr. Anderson at the onset of this and had a hemoglobin drawn and was found to be 10.7. He is on Pradaxa for history of atrial fibrillation. He follows with Dr. Armendariz. He is scheduled for an upper GI scope with Dr. Smith on Monday, 2 days from now. He stopped his Pradaxa few days ago in light of the dark stools. He presents today concerned about his hemoglobin. He has only occasional left lower quadrant pain which she does not feel is contributing to the bleed given the dark nature of the stools he believes this to represent an upper GI source. He has been dripping hydrogen peroxide on this at home and watching it "fizzle' as a sort of home Hemoccult test. 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 Timing/Duration: 1 Week Radiation: No Radiation Activities at Onset: None Allergies and Home Medications Allergies Coded Allergies: No Known Drug Allergies (Unverified , 10/22/19) Home Medications Aspirin 81 Mg Tablet.dr, 81 MG PO DAILY, (Reported) Cholecalciferol (Vitamin D3) 400 Unit Capsule, 400 UNIT PO DAILY, (Reported) Dabigatran Etexilate Mesylate 150 Mg Capsule, 150 MG PO BID, (Reported) Diltiazem HCl 180 Mg Cap.er.24h, 180 MG PO DAILY, (Reported) Magnesium Oxide 400 Mg Capsule, 400-800 MG PO DAILY, (Reported) Multivitamin 1 Each Tablet, 1 EACH PO DAILY, (Reported) Patient Home Medication List Home Medication List Reviewed: Yes Review of Systems Review of Systems Constitutional: see HPI EENTM: No Symptoms Reported Respiratory: No Symptoms Reported Cardiovascular: No Symptoms Reported Gastrointestinal: See HPI; Denies Abdominal Pain; Other Genitourinary: No Symptoms Reported Musculoskeletal: no symptoms reported Skin: no symptoms reported Psychiatric/Neurological: No Symptoms Reported Endocrine: No Symptoms Reported Past [place]-Ydcqvp-Nylbjm Hx Patient Social History Alcohol Use: Rarely Uses Recreational Drug Use: No Smoking Status: Former Smoker Type Used: Cigarettes Former Smoker, Quit: February 01, 1980 2nd Hand Smoke Exposure: No Recent Foreign Travel: No Contact w/Someone Who Travel: No Recent Infectious Disease Expo: No Recent Hopitalizations: No Immunizations Up To Date Tetanus Booster (TDap): Unknown Date of Pneumonia Vaccine: Jun 12, 2017 Date of Influenza Vaccine: Jun 10, 2019 Seasonal Allergies Seasonal Allergies: Yes Past Medical History Surgeries: Yes (INCISIONAL HERNIA REPAIR, COLON RESECTION, R THR) Appendectomy, CABG, Gallbladder Respiratory: No Currently Using CPAP: No Currently Using BIPAP: No Cardiac: Yes ( HX CABG) Atrial Fibrillation, Deep Vein Thrombosis, Hypertension Neurological: No Reproductive Disorders: No Sexually Transmitted Disease: No HIV/AIDS: No Genitourinary: No Gastrointestinal: Yes (hx of colon ca) Chronic Constipation, Polyps Musculoskeletal: No Endocrine: No HEENT: Yes (GLASSES) Loss of Vision: Bilateral Hearing Impairment: Denies Cancer: Yes Colon Did You Recieve Any Treatments: Yes What Type of Treatment Did You: Surgical Intervention Psychosocial: Yes Depression Integumentary: No Blood Disorders: No Adverse Reaction/Blood Tranf: No (N/A) Physical Exam Vital Signs Vital Signs - First Documented 08/08/20 12:29 Temp 36.1 Pulse 97 Resp 20 B/P (MAP) 177/110 (132) Pulse Ox 98 O2 Delivery Room Air Capillary Refill : Less Than 3 Seconds Height/Weight/BMI Height: 5'7.00" Weight: 188lbs. 1.0oz. 85.484781lo; 27.00 BMI Method: General Appearance: WD/WN, no apparent distress Respiratory: no respiratory distress, no accessory muscle use Cardiovascular: no murmur, irregularly irregular Gastrointestinal: normal bowel sounds, non tender, soft Extremities: normal range of motion, non-tender Neurologic/Psychiatric: alert, normal mood/affect, oriented x 3 Skin: normal color, warm/dry Progress/Results/Core Measures Results/Orders Lab Results Laboratory Tests Test 08/08/20 12:39 Range/Units White Blood Count 5.1 4.3-11.0 10^3/uL Red Blood Count 4.46 4.30-5.52 10^6/uL Hemoglobin 11.6 L 13.3-17.7 g/dL Hematocrit 38 L 40-54 % Mean Corpuscular Volume 85 80-99 fL Mean Corpuscular Hemoglobin 26 25-34 pg Mean Corpuscular Hemoglobin Concent 30 L 32-36 g/dL Red Cell Distribution Width 16.0 H 10.0-14.5 % Platelet Count 195 130-400 10^3/uL Mean Platelet Volume 9.7 9.0-12.2 fL Immature Granulocyte % (Auto) 0 % Neutrophils (%) (Auto) 64 42-75 % Lymphocytes (%) (Auto) 27 12-44 % Monocytes (%) (Auto) 7 0-12 % Eosinophils (%) (Auto) 2 0-10 % Basophils (%) (Auto) 0 0-10 % Neutrophils # (Auto) 3.3 1.8-7.8 10^3/uL Lymphocytes # (Auto) 1.4 1.0-4.0 10^3/uL Monocytes # (Auto) 0.3 0.0-1.0 10^3/uL Eosinophils # (Auto) 0.1 0.0-0.3 10^3/uL Basophils # (Auto) 0.0 0.0-0.1 10^3/uL Immature Granulocyte # (Auto) 0.0 0.0-0.1 10^3/uL Prothrombin Time 14.1 12.2-14.7 SEC INR Comment 1.0 0.8-1.4 Activated Partial Thromboplast Time 25 24-35 SEC Sodium Level 142 135-145 MMOL/L Potassium Level 4.0 3.6-5.0 MMOL/L Chloride Level 105 98-107 MMOL/L Carbon Dioxide Level 26 21-32 MMOL/L Anion Gap 11 5-14 MMOL/L Blood Urea Nitrogen 18 7-18 MG/DL Creatinine 1.06 0.60-1.30 MG/DL Estimat Glomerular Filtration Rate > 60 BUN/Creatinine Ratio 17 Glucose Level 114 H 70-105 MG/DL Calcium Level 9.3 8.5-10.1 MG/DL Corrected Calcium 8.9 8.5-10.1 MG/DL Total Bilirubin 0.6 0.1-1.0 MG/DL Aspartate Amino Transf (AST/SGOT) 22 5-34 U/L Alanine Aminotransferase (ALT/SGPT) 18 0-55 U/L Alkaline Phosphatase 80 40-136 U/L Total Protein 7.4 6.4-8.2 GM/DL Albumin 4.5 3.2-4.5 GM/DL Vital Signs/I&O 08/08/20 12:29 Temp 36.1 Pulse 97 Resp 20 B/P (MAP) 177/110 (132) Pulse Ox 98 O2 Delivery Room Air Blood Pressure Mean: 132 Departure Communication (Admissions) Family Conversation His hemoglobin is stable, he is already on a proton pump inhibitor and has follow-up for EGD scheduled with Dr. Smith 2 days from now.. His abdomen is soft nontender. No intervention needed at this time. Impression Primary Impression: Upper GI bleed Disposition: HOME, SELF-CARE Condition: Stable Departure-Patient Inst. Decision time for Depature: 13:21 Referrals: SUKHWINDER ANDERSON MD (PCP/Family) Primary Care Physician Patient Instructions: Gastrointestinal Bleeding (DC) BRAXTON SOARES APRN Aug 08, 2020 13:18
[2020-08-08 13:31] VITALS: BP 140/93
[2020-08-11] MEDS ORDERED: MAGN500C15 PO (13:28)
[2020-08-11] MEDS ORDERED: FERR-84 PO (13:28)
[2020-08-11] MEDS ORDERED: UBID100C17 PO (13:28)
[2020-08-11] MEDS ORDERED: ASPI-999 PO (13:28)
[2020-08-11] MEDS ORDERED: CHOL400T PO (13:28)
== END 2020-08-08 13:31 | disposition home or self-care (01) ==
LOC: EDUNIT# 11:37 → ER 11:38
DX: K92.2 Gastrointestinal hemorrhage, unspecified (principal); I48.91 Unspecified atrial fibrillation; I10 Essential (primary) hypertension; Z85.038 Personal history of other malignant neoplasm of large intestine; Z95.1 Presence of aortocoronary bypass graft; Z87.891 Personal history of nicotine dependence; Z86.718 Personal history of other venous thrombosis and embolism; Z79.01 Long term (current) use of anticoagulants; Z79.82 Long term (current) use of aspirin
CPT/HCPCS: 36415; 80053; 85025; 85610; 85730

== ENCOUNTER 2020-08-12 05:38 | Outpatient (RCR) | payer MEDICARE, OTHER ==
[~2020-08-12] VITALS: Ht 172.7 cm; Wt 86.4 kg
[~2020-08-12 05:38] MED LIST changes: +ASPI-999 PO; +CHOL400T PO; +FERR-84 PO; +MAGN500C15 PO; +UBID100C17 PO
[2020-08-14] MEDS ORDERED: PANT40TA2 PO (08:01)
== END 2020-08-12 11:40 | disposition home or self-care (01) ==
LOC: PREOP 05:38
PROVIDERS: ATTEND Surgery
DX: Z01.812 Encounter for preprocedural laboratory examination (principal); D64.9 Anemia, unspecified; Z20.828 Contact with and (suspected) exposure to other viral communicable diseases
CPT/HCPCS: 87635

== ENCOUNTER 2020-08-14 07:05 | Day surgery (SDC) | payer MEDICARE, OTHER ==
[2020-08-14] VITALS (9 sets, daily range): BP systolic 110–152; BP diastolic 72–94
[~2020-08-14] VITALS: Ht 172.7 cm; Wt 86.4 kg
[2020-08-14] MEDS ORDERED: MIDAZOLAM 2 MG/2 ML (VERSED) VIAL ONE (07:16)
[2020-08-14] MEDS ORDERED: PROPOFOL INJECTION 50 ML IV ONE (07:17)
[2020-08-14] MEDS ORDERED: LACTATED RINGERS 1,000 ML IV ONE (07:25)
--- NOTE | 2020-08-14 07:40 | Progress Note-Pre Operative ---
Pre-Operative Progress Note H&P Reviewed The H&P was reviewed, patient examined and no changes noted. Date Seen by Provider: Aug 14, 2020 Time Seen by Provider: 07:34 Date H&P Reviewed: Aug 14, 2020 Time H&P Reviewed: 07:34 Pre-Operative Diagnosis: iron def anemia ESTEFANÍA PRINCE DO Aug 14, 2020 07:40
[2020-08-14] MEDS ORDERED: LACTATED RINGERS 1,000 ML IV STA (07:43)
[2020-08-14] MEDS ORDERED: HURRICAINE EXT TUBE (BENZOCAINE) XX PRN (07:45)
[2020-08-14] MEDS ORDERED: PANT40TA2 PO (08:01)
--- NOTE | 2020-08-14 08:05 | Discharge Inst-Simple/Standard ---
Discharge Inst-Standard Discharge Medications New, Converted or Re-Newed RX: Transmitted to Pharmacy Patient Instructions/Follow Up Plan of Care/Instructions/FU: 3 weeks Luis Activity as Tolerated: Yes Discharge Diet: Regular Diet ESTEFANÍA PRINCE DO Aug 14, 2020 08:05
--- NOTE | 2020-08-14 09:40 | NUR ---
HAS HAD PO FLUIDS WITHOUT PROBLEM, DENIES COMPLAINTS. ALERT AND CHEERFUL, GAIT STEADY WHEN UP TO BR.
--- NOTE | 2020-08-14 11:04 | Anesthesia-General Post-Op ---
MAC Patient Condition Mental Status/LOC: Same as Preop Cardiovascular: Satisfactory Nausea/Vomiting: Absent Respiratory: Satisfactory Pain: Controlled Complications: Absent Post Op Complications Complications None Follow Up Care/Instructions Patient Instructions None needed. Anesthesiology Discharge Order Discharge Order Patient is doing well, no complaints, stable vital signs, no apparent adverse anesthesia problems. No complications reported per nursing. FLORI GLASER CRNA Aug 14, 2020 11:04
--- NOTE | 2020-08-14 21:28 | Progress Note-Post Operative ---
Post-Operative Progess Note Surgeon (s)/Filer Helper (s) Surgeon ESTEFANÍA PRINCE DO Filer Helper: na Pre-Operative Diagnosis iron def anemia Post-Operative Diagnosis hiatal hernia, duodenal ulcer Procedure & Operative Findings Date of Procedure 08/14/20 Procedure Performed/Findings egd c biopsies Anesthesia Type per ip attorney Estimated Blood Loss Estimated blood loss (mL): scant Specimens/Packing Specimens Removed duodenal ulcer, antrum ESTEFANÍA PRINCE DO Aug 14, 2020 21:28
--- NOTE | 2020-08-15 02:10 | OPERATIVE REPORT ---
DATE OF SERVICE: 08/14/2020 PREOPERATIVE DIAGNOSIS: Iron deficiency anemia. POSTOPERATIVE DIAGNOSES: Hiatal hernia, duodenal ulcer. PROCEDURE: EGD with biopsies. SURGEON: Estefanía Smith DO ANESTHESIA: Per STRAIGHT CUTTER MACHINE. ESTIMATED BLOOD LOSS: Scant. COMPLICATIONS: None. INDICATIONS: The patient is an 80-year-old male with iron deficiency anemia. He understands risks and benefits of procedure and wished to proceed with procedure. Consent was signed in the chart. DESCRIPTION OF PROCEDURE: The patient was taken to the endoscopy suite, placed in left lateral recumbent position. Timeout was performed. Scope was inserted in mouth, down the esophagus, stomach and into the duodenum without difficulty. No polyps, masses into the duodenum. There is an appearance of a healing ulcer. Biopsy of this area was obtained. Scope was then slowly retracted back. The stomach was further insufflated. No polyps, masses or ulcerations. Very minimal erythematous changes. Biopsy of the antrum was obtained. Scope was retroflexed noting a small hiatal hernia, no other pathology. Scope was returned to its normal position, slowly withdrawn to distal esophagus, which had normal appearance. No polyps, masses or ulcerations or erythematous changes. Scope was then slowly retracted back until completely removed. The patient tolerated procedure well without any complications, taken to recovery room in stable condition. RECOMMENDATIONS: The patient started on Protonix 40 mg daily. The patient will follow up in the office in two to three weeks. Any issues before that be seen at that time. Further recommendations pending. Job ID: [id number] DocumentID: [id number] Dictated Date: 08/14/2020 21:31:49 Dealership General Manager Date: 08/15/2020 02:09:54 Dictated By: ESTEFANÍA SMITH DO
== END 2020-08-14 09:40 | disposition home or self-care (01) ==
LOC: ENDO 07:05
PROVIDERS: ATTEND Surgery
DX: K29.80 Duodenitis without bleeding (principal); D50.9 Iron deficiency anemia, unspecified; K44.9 Diaphragmatic hernia without obstruction or gangrene; K26.9 Duodenal ulcer, unspecified as acute or chronic, without hemorrhage or perforation; I10 Essential (primary) hypertension; F32.9 Major depressive disorder, single episode, unspecified; E78.5 Hyperlipidemia, unspecified; E55.9 Vitamin D deficiency, unspecified; F41.8 Other specified anxiety disorders; I25.10 Atherosclerotic heart disease of native coronary artery without angina pectoris; I48.0 Paroxysmal atrial fibrillation; I65.23 Occlusion and stenosis of bilateral carotid arteries; K21.9 Gastro-esophageal reflux disease without esophagitis; K43.2 Incisional hernia without obstruction or gangrene; E66.9 Obesity, unspecified; Z68.29 Body mass index [BMI] 29.0-29.9, adult; Z79.01 Long term (current) use of anticoagulants; Z79.82 Long term (current) use of aspirin; Z79.899 Other long term (current) drug therapy; Z95.1 Presence of aortocoronary bypass graft; Z85.038 Personal history of other malignant neoplasm of large intestine
CPT/HCPCS: 88305

== ENCOUNTER 2020-10-30 12:22 | Outpatient (RCR) | payer MEDICARE, OTHER ==
[2020-10-16 12:30] VITALS: BP 143/106
[2020-10-16] MEDS: FERRIC CARBOXYMALTOSE INJ 750 MG in NS (IVPB) 250 ML IV SCH (12:47)
[~2020-10-30] VITALS: Ht 172.7 cm; Wt 81.8 kg
[~2020-10-30 12:22] MED LIST changes: +MONT10TA32 PO; -MONT10TA97 PO; +PANT40TA2 PO
[2020-10-30] MEDS: FERRIC CARBOXYMALTOSE INJ 750 MG in NS (IVPB) 250 ML IV SCH (13:16)
[2020-10-30 13:35] VITALS: BP 131/79
== END 2020-10-30 13:35 | disposition home or self-care (01) ==
LOC: SDC 12:22
PROVIDERS: ATTEND Internal Medicine
DX: D64.9 Anemia, unspecified (principal)
CPT/HCPCS: 96365

== ENCOUNTER 2021-02-25 10:26 | Outpatient (RCR) | payer MEDICARE, OTHER ==
[2021-02-11] MEDS: FERRIC CARBOXYMALTOSE INJ 750 MG in NS (IVPB) 250 ML IV SCH (11:01)
[2021-02-11 11:20] VITALS: BP 125/74
[2021-02-25] MEDS: FERRIC CARBOXYMALTOSE INJ 750 MG in NS (IVPB) 250 ML IV SCH (10:41)
[2021-02-25 11:02] VITALS: BP 138/89
== END 2021-02-25 11:09 | disposition home or self-care (01) ==
LOC: SDC 10:26
PROVIDERS: ATTEND Nurse Practitioner Family
DX: D64.9 Anemia, unspecified (principal)
CPT/HCPCS: 96365

== ENCOUNTER 2022-01-25 06:48 | Emergency (ER) | payer MEDICARE, OTHER ==
[~2022-01-25] VITALS: Ht 172 cm; Wt 86.1 kg
[~2022-01-25 06:48] MED LIST changes: +MONT-40 PO; -MONT10TA32 PO
--- NOTE | 2022-01-25 07:32 | ED General ---
General Chief Complaint: Psych/Social Disorder Stated Complaint: DEPRESSED,COUGH Nursing Triage Note: pt presents to ed via pov from home with complaints of depression and anxiety for the past several weeks. pt states he used to take zoloft in the past and he tried to take one recently and it made him sick. pt states he has had more stress recently with a relocation. pt also reports difficulty with sleep. (YOAV KEY) History of Present Illness Date Seen by Provider: January 25, 2022 Time Seen by Provider: 07:20 Initial Comments 81 year old male presents to the ED today via private vehicle with his for depression, cough, and diffuse abdominal pain. He reports having a long history of depression that he feels like has worsened as of late with increased stress with upcoming move. He also reports some anxiety with his depression and has had difficulties sleeping. He denies thoughts of hurting himself or others. He has taken Zolloft for depression in the past but hasn't needed to take it for many years. He did try taking it a few days ago and reports that it made him feel sick and that he hasn't taken it since. He describes his abdominal pain as diffuse and aching in nature and rates it as a 6 or 7/10 pain. He reports abdominal pain is a common occurence when his depression worsens. He has had some nausea with the abdominal pain, but no vom iting or loss of appetite. He has had some diarrhea but denies constipation or noticing blood in the stool. His PMH is significant for adenocarcinoma of the sigmoid colon that was resected in 2006. He did not require chemotherapy. Reports most recent colonoscopy was a few years ago by Dr. Prince and that it was normal at that time. Patient has a cough that began at the beginning of the year. He denies acute worsening of the the cough. He reports it is worse in the morning and improves by the afternoon. It is intermittently productive with red tinted sputum. He takes allergy medicine chronically for nasal drainage but denies it helping his cough. He did take dextromethorphan for his cough yesterday and that it helped mildly. He has a history of reflux which he takes Pantoprazole for and denies feeling like his cough is reflux related. He has been worked up for his cough by Dr. Dia who he reports did a scope to look at his vocal cords with unremarkable findings. (YOAV KEY) Allergies and Home Medications Allergies Coded Allergies: No Known Drug Allergies (Unverified , 10/22/19) Patient Home Medication List Home Medication List Reviewed: Yes (BRENTON PEREZ MD) Aspirin (Aspirin) 81 Mg Tab.chew, 81 MG PO DAILY, (Reported) Entered as Reported by: LUKE SIMPSON on 08/11/20 1328 Cholecalciferol (Vitamin D3) (Vitamin D3) 10 Mcg Tablet, 10 MCG PO DAILY, (Reported) Entered as Reported by: LUKE SIMPSON on 08/11/20 1328 Dabigatran Etexilate Mesylate (Pradaxa) 150 Mg Capsule, 150 MG PO BID, (Reported) Entered as Reported by: SOO ROSARIO on 10/22/19 1240 Diltiazem HCl (Cardizem Cd) 180 Mg Cap.er.24h, 180 MG PO DAILY, (Reported) Entered as Reported by: LUKE SIMPSON on 08/08/17 0956 Ferrous Sulfate (Iron) 325 Mg Tablet, 325 MG PO DAILY, (Reported) Entered as Reported by: LUKE SIMPSON on 08/11/20 1328 Magnesium Oxide (Magnesium) 500 Mg Capsule, 500 MG PO HS, (Reported) Entered as Reported by: LUKE SIMPSON on 08/11/20 1328 Multivitamin (Multivitamins) 1 Each Tablet, 1 EACH PO DAILY, (Reported) Entered as Reported by: LUKE SIMPSON on 08/08/17 0956 Pantoprazole Sodium (Protonix) 40 Mg Tablet.dr, 40 MG PO DAILY Prescribed by: ESTEFANÍA PRINCE on 08/14/20 0801 Ubidecarenone (Coq-10) 100 Mg Capsule, 100 MG PO DAILY, (Reported) Entered as Reported by: LUKE SIMPSON on 08/11/20 1328 Review of Systems Review of Systems Constitutional: No chills, No fever, No weakness EENTM: other (dry mouth and throat); No hearing loss, No vision loss, No throat pain Respiratory: cough, hemoptysis; No short of breath Cardiovascular: No chest pain; palpitations (history of Afib); No syncope; vascular heart diseas (History of cornoary bypass surgery) Gastrointestinal: abdominal pain (diffuse abdominal pain); No constipation; diarrhea; No loss of appetite; nausea; No vomiting Genitourinary: No dysuria, No frequency, No hematuria Musculoskeletal: no symptoms reported Skin: no symptoms reported Psychiatric/Neurological: Anxiety, Depressed Hematologic/Lymphatic: No Symptoms Reported Immunological/Allergic: see HPI (YOAV KEY) Constitutional: No chills, No fever Respiratory: cough; No short of breath Cardiovascular: No chest pain, No edema Gastrointestinal: abdominal pain (diffuse abdominal pain) (BRENTON PEREZ MD) Past Fbbpizu-Ugpjxl-Swxwuf Hx Patient Social History Tobacco Use?: No Smokeless Tobacco Frequency: Former User (Hasn't smoked since 1979) Substance use?: No Alcohol Use?: No Pt feels they are or have been: No (OYAV KEY) Immunizations Up To Date Tetanus Booster (TDap): Unknown First/Initial COVID19 Vaccinat: moderna Second COVID19 Vaccination Pablo: moderna (YOAV KEY) Seasonal Allergies Seasonal Allergies: Yes (YOAV KEY) Past Medical History Surgery/Hospitalization HX: pmh: afib, gerd, depression sx: cabg, colectomy, gallbladder, hernia repair Surgeries: Yes (INCISIONAL HERNIA REPAIR, COLON RESECTION, R THR) Appendectomy, CABG, Gallbladder Respiratory: No Currently Using CPAP: No Currently Using BIPAP: No Cardiac: Yes ( HX CABG) Atrial Fibrillation, Deep Vein Thrombosis, Hypertension Neurological: No Reproductive Disorders: No Sexually Transmitted Disease: No HIV/AIDS: No Genitourinary: No Gastrointestinal: Yes (hx of colon ca) Chronic Constipation, Polyps Musculoskeletal: No Endocrine: No HEENT: Yes (GLASSES) Loss of Vision: Bilateral Hearing Impairment: Denies Cancer: Yes Colon Did You Recieve Any Treatments: Yes What Type of Treatment Did You: Surgical Intervention Psychosocial: Yes Depression Integumentary: No Blood Disorders: Yes (ANEMIA) Adverse Reaction/Blood Tranf: No (N/A) (YOAV KEY) Family Medical History Reviewed Nursing Family Hx (BRENTON PEREZ MD) Psychiatric Problems (Mother had depression) (YOAV KEY) Physical Exam Vital Signs Vital Signs - First Documented 01/25/22 07:10 Temp 36.1 Pulse 130 Resp 18 B/P (MAP) 146/100 (115) Pulse Ox 96 (BRENTON PEREZ MD) Vital Signs Capillary Refill : Less Than 3 Seconds (YOAV KEY) Height, Weight, BMI Height: 5'7.00" Weight: 188lbs. 1.0oz. 85.264163yd; 29.00 BMI Method: General Appearance: No Apparent Distress, WD/WN Eyes: Bilateral Eye PERRL, Bilateral Eye EOMI HEENT: PERRL/EOMI, TMs Normal; No Moist Mucous Membranes Neck: Non Tender, Supple Respiratory: Chest Non Tender, Lungs Clear, Normal Breath Sounds, No Accessory Muscle Use, No Respiratory Distress Cardiovascular: Irregularly Irregular, Tachycardia (Patients pulse was fluctua ting between the 90's and 160's while we were in the room.) Gastrointestinal: Normal Bowel Sounds; No Distended, No Rebound; Tenderness (Diffuse abdominal pain. Pain is worse with palpation in the area of a midline scar from prior colon resection surgery. ), Other (Patient has area of protrusion in the at prior midline epigastric incision. The area is soft and there are no masses felt in this area. Patient reports it is not more distended than it normally is. ) Back: No CVA Tenderness, No Vertebral Tenderness Extremity: Normal Capillary Refill, No Pedal Edema Neurologic/Psychiatric: Alert, Oriented x3, No Motor/Sensory Deficits, adult care provider II- XII Norm as Tested, Depressed Affect (minimally dpressed affect when speaking with him. ) Skin: Normal Color, Warm/Dry Lymphatic: No Adenopathy (YOAV KEY) General Appearance: No Apparent Distress, WD/WN HEENT: PERRL/EOMI, Pharynx Normal Neck: Non Tender, Supple Respiratory: Lungs Clear, Normal Breath Sounds Cardiovascular: Irregularly Irregular, Tachycardia (Patients pulse was fluctuating between the 90's and 160's while we were in the room.) Gastrointestinal: Soft, Hernia (Mid abdominal hernia that does have some protrusion but patient states is normal for him), Tenderness (Diffuse abdominal pain. Pain is worse with palpation in the area of a midline scar from prior colon resection surgery. ) Back: No CVA Tenderness, No Vertebral Tenderness Extremity: Normal Range of Motion, Non Tender, No Pedal Edema Neurologic/Psychiatric: Alert, Oriented x3, No Motor/Sensory Deficits Skin: Normal Color, Warm/Dry (BRENTON PEREZ MD) Focused Exam Lactate Level 01/25/22 08:05: Lactic Acid Level 1.09 (BRENTON PEREZ MD) Lactic Acid Level Laboratory Tests Test 01/25/22 08:05 Lactic Acid Level 1.09 MMOL/L (0.50-2.00) (BRENTON PEREZ MD) Progress/Results/Core Measures Suspected Sepsis SIRS Temperature: Pulse: 130 Respiratory Rate: 18 Laboratory Tests 01/25/22 08:05: White Blood Count 6.1 Blood Pressure 146 /100 Mean: 115 01/25/22 08:05: Lactic Acid Level 1.09 Laboratory Tests 01/25/22 08:05: Platelet Count 182 (YOAV KEY) Results/Orders Lab Results Laboratory Tests Test 01/25/22 07:51 01/25/22 08:05 Range/Units Urine Color ORANGE Urine Clarity SL CLOUDY Urine pH 5.5 5-9 Urine Specific [place] >=1.030 1.016-1.022 Urine Protein 1+ H NEGATIVE Urine Glucose (UA) NEGATIVE NEGATIVE Urine Ketones 1+ H NEGATIVE Urine Nitrite NEGATIVE NEGATIVE Urine Bilirubin 1+ H NEGATIVE Urine Urobilinogen 0.2 < = 1.0 MG/DL Urine Leukocyte Esterase NEGATIVE NEGATIVE Urine RBC (Auto) NEGATIVE NEGATIVE Urine RBC NONE /HPF Urine WBC RARE /HPF Urine Squamous Epithelial Cells RARE /HPF Urine Crystals NONE /LPF Urine Bacteria NEGATIVE /HPF Urine Casts NONE /LPF Urine Mucus SMALL H /LPF Urine Culture Indicated NO White Blood Count 6.1 4.3-11.0 10^3/uL Red Blood Count 4.89 4.30-5.52 10^6/uL Hemoglobin 14.5 13.3-17.7 g/dL Hematocrit 45 40-54 % Mean Corpuscular Volume 92 80-99 fL Mean Corpuscular Hemoglobin 30 25-34 pg Mean Corpuscular Hemoglobin Concent 32 32-36 g/dL Red Cell Distribution Width 14.7 H 10.0-14.5 % Platelet Count 182 130-400 10^3/uL Mean Platelet Volume 11.1 9.0-12.2 fL Immature Granulocyte % (Auto) 0 % Neutrophils (%) (Auto) 79 H 42-75 % Lymphocytes (%) (Auto) 15 12-44 % Monocytes (%) (Auto) 5 0-12 % Eosinophils (%) (Auto) 1 0-10 % Basophils (%) (Auto) 0 0-10 % Neutrophils # (Auto) 4.8 1.8-7.8 10^3/uL Lymphocytes # (Auto) 0.9 L 1.0-4.0 10^3/uL Monocytes # (Auto) 0.3 0.0-1.0 10^3/uL Eosinophils # (Auto) 0.1 0.0-0.3 10^3/uL Basophils # (Auto) 0.0 0.0-0.1 10^3/uL Immature Granulocyte # (Auto) 0.0 0.0-0.1 10^3/uL Sodium Level 140 135-145 MMOL/L Potassium Level 4.4 3.6-5.0 MMOL/L Chloride Level 106 98-107 MMOL/L Carbon Dioxide Level 22 21-32 MMOL/L Anion Gap 12 5-14 MMOL/L Blood Urea Nitrogen 23 H 7-18 MG/DL Creatinine 1.17 0.60-1.30 MG/DL Estimat Glomerular Filtration Rate 62 BUN/Creatinine Ratio 20 Glucose Level 131 H 70-105 MG/DL Lactic Acid Level 1.09 0.50-2.00 MMOL/L Calcium Level 9.5 8.5-10.1 MG/DL Corrected Calcium 9.5 8.5-10.1 MG/DL Total Bilirubin 0.8 0.1-1.0 MG/DL Aspartate Amino Transf (AST/SGOT) 57 H 5-34 U/L Alanine Aminotransferase (ALT/SGPT) 70 H 0-55 U/L Alkaline Phosphatase 81 40-136 U/L Troponin I < 0.028 <0.028 NG/ML C-Reactive Protein High Sensitivity 0.86 H 0.00-0.50 MG/DL Total Protein 6.8 6.4-8.2 GM/DL Albumin 4.0 3.2-4.5 GM/DL Lipase 16 8-78 U/L (BRENTON PEREZ MD) My Orders Orders - BRENTON PEREZ MD Chest Pa/Lat (2 View) (01/25/22 07:43) Cbc With Automated Diff (01/25/22 07:43) Comprehensive Metabolic Panel (01/25/22 07:43) Hs C Reactive Protein (01/25/22 07:43) Lipase (01/25/22 07:43) Ua Culture If Indicated (01/25/22 07:43) Ondansetron Injection (Zofran Injectio (01/25/22 07:45) Ns Iv 1000 Ml (Sodium Chloride 0.9%) (01/25/22 07:43) Ed Iv/Invasive Line Start (01/25/22 07:43) Lactic Acid Analyzer (01/25/22 07:43) Ekg Tracing (01/25/22 08:12) Monitor-Rhythm Ecg Trace Only (01/25/22 08:12) Troponin I Maury (01/25/22 08:12) Diltiazem Injection (Cardizem Injection) (01/25/22 08:15) (BRENTON PEREZ MD) Medications Given in ED Current Medications Medications Dose Ordered Sig/Dolores Route Start Time Stop Time Status Last Admin Dose Admin Diltiazem HCl 20 mg ONCE ONCE IVP 01/25/22 08:15 01/25/22 08:16 DC 01/25/22 08:55 20 MG Ondansetron HCl 4 mg ONCE ONCE IVP 01/25/22 07:45 01/25/22 07:46 DC 01/25/22 08:00 4 MG (BRENTON PEREZ MD) Vital Signs/I&O 01/25/22 07:10 Temp 36.1 Pulse 130 Resp 18 B/P (MAP) 146/100 (115) Pulse Ox 96 (BRENTON PEREZ MD) Vital Signs/I&O Capillary Refill : Less Than 3 Seconds (YOAV KEY) Blood Pressure Mean: 115 Progress Note : Progress Note 8:15 Upon further evaluation it was noticed patient was in Afib with RVR. EKG and troponin ordered. Patient has history of chronic Afib for which he takes diltiazem. He reports missing his dose yesterday, but took it this morning. Will give 20mg Diltiazem bolus at this time to attempt better rate control. He is not currently on a blood thinner due to past trials causing GI bleeding. Does take baby aspirin daily. CBC, CMP, lactic acid, urinalysis, chest x-ray, and abdominal CT to workup complaints of cough and abdominal pain. 1L Normal Saline at this time and zofran 4mg for nausea. 8:48 Patient was sleeping in bed with heart rate in the range of 80-100 while I was in the room. Radiology was getting him for his chest x ray as I was leaving the room (YOAV KEY) Progress Note : Progress Note I have seen and evaluated the patient and agree with above except as indicated. I have directed the plan of care. Patient is here with abdominal pain concerns with depression. States he is moving and has been taking quite a long time which he thinks is increased his depression. Does have history of atrial fibrillation and is on aspirin after failed blood thinners over the last few years causing GI bleed including Pradaxa and Eliquis. Currently denies vomiting. Reports abdominal pain is diffuse. Admits to missing dose of diltiazem yesterday but did take that this morning. Noted to have uncontrolled heart rate this morning with atrial fibrillation and rates 110-150s. Vital signs as above. Physical exam as noted. We will check labs, EKG and give diltiazem 20 mg IV as well as normal saline 1 L bolus. Monitor patient. 1035: Labs reviewed. No elevation in white count and lactic acid is negative. Hemoglobin normal. Overall he feels much better and heart rate in the 90s now. I do believe there is likely dehydration as a component for the abdominal pain as well as the atrial fibrillation. Although that seems improved. He was able to walk around the emergency department without pain or difficulty and states he feels much better currently. Discharged home with return precautions. Patient and family verbalized understanding instructions and agreement with plan. (BRENTON PEREZ MD) ECG Initial ECG Impression Date: January 25, 2022 Initial ECG Impression Time: 08:33 Initial ECG Rate: 107 Initial ECG Impression: Atrial Fibrillation w/RVR Initial ECG Comparisson: Changed Comment Atrial fibrillation with rapid ventricular response. Left bundle branch block noted. Leftward axis. No evidence of ST elevation [place]. Change from previous with increasing left bundle branch block from February 2019. Interpreted by me. (BRENTON PEREZ MD) Diagnostic Imaging Diagonstic Imaging: Xray Plain Films/CT/US/NM/MRI: chest Comments [facility] [place], [place] NAME: MORTEZAMATIASJAVONTONY CADENA REC#: [id number] PT STATUS: REG ER : 1940 PHYSICIAN: BRENTON PEREZ MD ADMIT DATE: 01/25/22/ER Draft Date of Exam:01/25/22 CHEST PA/LAT (2 VIEW) INDICATION: Depression and anxiety. TIME OF EXAM: 8:51 AM Correlation is made with prior chest from 01/31/2019. FINDINGS: Heart is enlarged. There are changes of median sternotomy. The lungs show some mild central congestion but no overt failure. No effusion or pneumothorax is detected. IMPRESSION: Cardiomegaly and mild central congestion. Dictated on workstation # [id number] Dict: 01/25/22 0901 Trans: 01/25/22 0903 [id number] Interpreted by: KIEL JENNINGS MD Electronically signed by: (BRENTON PEREZ MD) Departure Impression Primary Impression: Diffuse abdominal pain Additional Impressions: Depression Qualified Codes: F32.A - Depression, unspecified Dehydration Disposition: 01 HOME, SELF-CARE Condition: Improved Departure-Patient Inst. Decision time for Depature: 10:40 (BRENTON PEREZ MD) Referrals: SUKHWINDER CARLOS MD (PCP/Family) Primary Care Physician Patient Instructions: Depression, Dehydration, Adult (DC), Abdominal Pain, Adult ED Add. Discharge Instructions: All discharge instructions reviewed with patient and/or family. Voiced understanding. Continue home medications as previously prescribed. Follow-up with Dr. Carlos for recheck and further evaluation and to discuss your depression. Drink plenty of fluids and eat a light diet. Advance diet as tolerated. Return for worse pain, fever, vomiting, weakness, breathing problems or other concerns as needed. Copy Copies To 1: SUKHWINDER CARLOS MD, CARSON January 25, 2022 07:32 BRENTON PEREZ MD January 25, 2022 09:20
[2022-01-25] MEDS ORDERED: NS IV 1000 ML 1,000 ML IV STA (07:43)
[2022-01-25] MEDS ORDERED: ONDANSETRON 4 MG/2 ML (SDV) Z0FRAN IVP ONE (07:45)
[2022-01-25 08:39] LABS: CLARITY,URINE SL CLOUDY; COLOR,URINE ORANGE; GLUCOSE, URINE (UA) NEGATIVE (NEGATIVE); KETONES,URINE 1+ (NEGATIVE); LEUKOCYTE ESTERASE ,URINE NEGATIVE (NEGATIVE); NITRITE,URINE NEGATIVE (NEGATIVE); PH,URINE 5.5 (5-9); PROTEIN,URINE 1+ (NEGATIVE)
[2022-01-25 08:39] LABS: BASOPHILS % (AUTO) 0 % (0-10); EOSINOPHILS # (AUTO) 0.1 10^3/uL (0.0-0.3); EOSINOPHILS % (AUTO) 1 % (0-10); HEMATOCRIT 45 % (40-54); HEMOGLOBIN 14.5 g/dL (13.3-17.7); LYMPHOCYTES # (AUTO) 0.9 10^3/uL (1.0-4.0); LYMPHOCYTES % (AUTO) 15 % (12-44); MEAN CORPUSCULAR HEMOGLOBIN 30 pg (25-34); MEAN CORPUSCULAR HGB CONC 32 g/dL (32-36); MEAN CORPUSCULAR VOLUME 92 fL (80-99); MEAN PLATELET VOLUME 11.1 fL (9.0-12.2); MONOCYTES # (AUTO) 0.3 10^3/uL (0.0-1.0); MONOCYTES % (AUTO) 5 % (0-12); NEUTROPHILS # (AUTO) 4.8 10^3/uL (1.8-7.8); NEUTROPHILS % (AUTO) 79 % (42-75); PLATELET COUNT 182 10^3/uL (130-400); WHITE BLOOD COUNT 6.1 10^3/uL (4.3-11.0)
[2022-01-25 08:48] LABS: CHLORIDE 106 MMOL/L (98-107); POTASSIUM 4.4 MMOL/L (3.6-5.0); SODIUM 140 MMOL/L (135-145)
[2022-01-25 08:49] LABS: CALCIUM 9.5 MG/DL (8.5-10.1)
[2022-01-25 08:50] LABS: GLUCOSE 131 MG/DL (70-105)
[2022-01-25 08:51] LABS: TOTAL PROTEIN 6.8 GM/DL (6.4-8.2)
[2022-01-25 08:52] LABS: BILIRUBIN,TOTAL 0.8 MG/DL (0.1-1.0); CARBON DIOXIDE 22 MMOL/L (21-32)
[2022-01-25 08:54] LABS: ALKALINE PHOSPHATASE 81 U/L (40-136); CREATININE SERUM 1.17 MG/DL (0.60-1.30); GFR ESTIMATED 62
[2022-01-25 08:55] LABS: BUN/CREATININE RATIO 20
[2022-01-25 08:57] LABS: ALANINE AMINOTRANSFERASE 70 U/L (0-55)
[2022-01-25 08:58] LABS: LIPASE 16 U/L (8-78)
[2022-01-25 08:59] LABS: BACTERIA,URINE NEGATIVE /HPF; BILIRUBIN,URINE 1+ (NEGATIVE); SQUAMOUS EPITHELIAL CELL,UR RARE /HPF; WBC,URINE RARE /HPF
--- NOTE | 2022-01-25 09:04 | Diagnostic Imaging Report ---
INDICATION: Depression and anxiety. TIME OF EXAM: 8:51 AM Correlation is made with prior chest from 01/31/2019. FINDINGS: Heart is enlarged. There are changes of median sternotomy. The lungs show some mild central congestion but no overt failure. No effusion or pneumothorax is detected. IMPRESSION: Cardiomegaly and mild central congestion. Dictated by: Dictated on workstation # [id number]
[2022-01-25 10:55] VITALS: BP 124/89
[2022-01-25] MEDS ORDERED: ONDA4TAB11 PO (15:41)
== END 2022-01-25 10:55 | disposition home or self-care (01) ==
LOC: EDUNIT# 06:48 → ER 06:52
DX: F32.A Depression, unspecified (principal); E86.0 Dehydration; I48.20 Chronic atrial fibrillation, unspecified; I44.7 Left bundle-branch block, unspecified; K46.9 Unspecified abdominal hernia without obstruction or gangrene; Z87.891 Personal history of nicotine dependence; Z85.038 Personal history of other malignant neoplasm of large intestine; Z95.1 Presence of aortocoronary bypass graft
CPT/HCPCS: 36415; 71046; 80053; 81000; 83605; 83690; 84484; 85025; 86141; 93005; 93041

== ENCOUNTER 2022-02-06 11:06 | Observation (INO) | payer MEDICARE, OTHER ==
[~2022-02-06] VITALS: Ht 172 cm; Wt 89.0 kg
[~2022-02-06 11:06] MED LIST changes: +ONDA4TAB11 PO
--- NOTE | 2022-02-06 11:41 | ED Abdominal Pain ---
General Chief Complaint: Abdominal/GI Problems Stated Complaint: ABDOMINAL PAIN Source of Information: Patient Exam Limitations: No Limitations History of Present Illness Date Seen by Provider: Feb 06, 2022 Time Seen by Provider: 11:38 Initial Comments Patient is a 81-year-old male with a history of A. fib, colon cancer, CAD who presents ED with abdominal pain, shortness of breath and leg swelling. Patient states he has had some generalized abdominal pain for the past 2 months. Described as more discomfort. Pain became localized this morning to the left lower quadrant. Patient has had some watery stools over the weekend and noted straining stools today. Pain is rated 5 out of 6. He states he has had bilate ral leg swelling over the past week with some shortness of breath and chest discomfort. Patient is currently in A. fib and currently on aspirin. States he does not tolerate blood thinners. No history of CHF. Patient reports nausea without vomiting. History of cholecystectomy, bowel resection secondary to colon cancer, hernia repair. Denies of any dysuria, hematuria, fever, chills, body aches. Patient was placed on Zoloft for depression. Denies of any dark tarry stool mucousy stool Allergies and Home Medications Allergies Coded Allergies: No Known Drug Allergies (Unverified , 10/22/19) Patient Home Medication List Home Medication List Reviewed: Yes Aspirin (Aspirin) 81 Mg Tab.chew, 81 MG PO DAILY, (Reported) Entered as Reported by: LUKE SIMPSON on 08/11/20 1328 Cholecalciferol (Vitamin D3) (Vitamin D3) 10 Mcg Tablet, 10 MCG PO DAILY, (Reported) Entered as Reported by: LUKE SIMPSON on 08/11/20 1328 Dabigatran Etexilate Mesylate (Pradaxa) 150 Mg Capsule, 150 MG PO BID, (Reported) Entered as Reported by: SOO ROSARIO on 10/22/19 1240 Diltiazem HCl (Cardizem Cd) 180 Mg Cap.er.24h, 180 MG PO DAILY, (Reported) Entered as Reported by: LUKE SIMPSON on 08/08/17 0956 Ferrous Sulfate (Iron) 325 Mg Tablet, 325 MG PO DAILY, (Reported) Entered as Reported by: LUKE SIMPSON on 08/11/20 1328 Magnesium Oxide (Magnesium) 500 Mg Capsule, 500 MG PO HS, (Reported) Entered as Reported by: LUKE SIMPSON on 08/11/20 1328 Multivitamin (Multivitamins) 1 Each Tablet, 1 EACH PO DAILY, (Reported) Entered as Reported by: LUKE SIMPSON on 08/08/17 0956 Ondansetron (Ondansetron Odt) 4 Mg Tab.rapdis, 4 MG PO Q6H PRN for NAUSEA/VOMITING Prescribed by: BRENTON PEREZ on 01/25/22 1541 Pantoprazole Sodium (Protonix) 40 Mg Tablet.dr, 40 MG PO DAILY Prescribed by: ESTEFANÍA PRINCE on 08/14/20 0801 Ubidecarenone (Coq-10) 100 Mg Capsule, 100 MG PO DAILY, (Reported) Entered as Reported by: LUKE SIMPSON on 08/11/20 1328 Review of Systems Review of Systems Constitutional: No chills, No malaise, No weakness EENTM: No Eye Pain, No Ear Pain, No Mouth Pain, No Mouth Swelling Respiratory: Denies Cough; Shortness of Air Cardiovascular: Chest Pain; Denies Edema; Irregular Heart Rate Gastrointestinal: Abdominal Pain, Diarrhea, Nausea; Denies Vomiting Genitourinary: Denies Burning, Denies Discharge Musculoskeletal: No back pain, No joint pain Skin: No change in color, No change in hair/nails All Other Systems Reviewed Negative Unless Noted: Yes Past Ymsplzi-Signxv-Ixuqop Hx Immunizations Up To Date Tetanus Booster (TDap): Unknown First/Initial COVID19 Vaccinat: moderna Second COVID19 Vaccination Pablo: damaso Seasonal Allergies Seasonal Allergies: Yes Past Medical History Surgery/Hospitalization HX: pmh: afib, gerd, depression sx: cabg, colectomy, gallbladder, hernia repair Surgeries: Yes (INCISIONAL HERNIA REPAIR, COLON RESECTION, R THR) Appendectomy, CABG, Gallbladder Respiratory: No Currently Using CPAP: No Currently Using BIPAP: No Cardiac: Yes ( HX CABG) Atrial Fibrillation, Deep Vein Thrombosis, Hypertension Neurological: No Reproductive Disorders: No Sexually Transmitted Disease: No HIV/AIDS: No Genitourinary: No Gastrointestinal: Yes (hx of colon ca) Chronic Constipation, Polyps Musculoskeletal: No Endocrine: No HEENT: Yes (GLASSES) Loss of Vision: Bilateral Hearing Impairment: Denies Cancer: Yes Colon Did You Recieve Any Treatments: Yes What Type of Treatment Did You: Surgical Intervention Psychosocial: Yes Depression Integumentary: No Blood Disorders: Yes (ANEMIA) Adverse Reaction/Blood Tranf: No (N/A) Family Medical History Psychiatric Problems Physical Exam Vital Signs Vital Signs - First Documented 02/06/22 11:16 Temp 36.0 Pulse 112 Resp 20 B/P (MAP) 102/81 (88) Pulse Ox 93 O2 Delivery Room Air Capillary Refill : Height/Weight/BMI Height: 5'7.00" Weight: 188lbs. 1.0oz. 85.524325rf; 29.00 BMI Method: General Appearance: WD/WN, no apparent distress HEENT: PERRL/EOMI, normal ENT inspection, TMs normal, pharynx normal Neck: non-tender, full range of motion, supple Respiratory: chest non-tender, lungs clear, normal breath sounds, no respiratory distress, no accessory muscle use Cardiovascular: no gallop, no murmur, irregularly irregular Gastrointestinal: normal bowel sounds, soft, no organomegaly, other (Left lower quadrant tenderness) Extremities: other (Pitting edema bilateral lower extremity) Back: normal inspection, no CVA tenderness, no vertebral tenderness Neurologic/Psychiatric: harness builder II-XII nml as tested, no motor/sensory deficits, alert, normal mood/affect Skin: normal color, warm/dry Progress/Results/Core Measures Results/Orders Lab Results Laboratory Tests Test 02/06/22 11:25 02/06/22 11:45 Range/Units White Blood Count 6.4 4.3-11.0 10^3/uL Red Blood Count 4.89 4.30-5.52 10^6/uL Hemoglobin 14.7 13.3-17.7 g/dL Hematocrit 45 40-54 % Mean Corpuscular Volume 91 80-99 fL Mean Corpuscular Hemoglobin 30 25-34 pg Mean Corpuscular Hemoglobin Concent 33 32-36 g/dL Red Cell Distribution Width 14.6 H 10.0-14.5 % Platelet Count 188 130-400 10^3/uL Mean Platelet Volume 10.6 9.0-12.2 fL Immature Granulocyte % (Auto) 1 % Neutrophils (%) (Auto) 78 H 42-75 % Lymphocytes (%) (Auto) 14 12-44 % Monocytes (%) (Auto) 7 0-12 % Eosinophils (%) (Auto) 0 0-10 % Basophils (%) (Auto) 0 0-10 % Neutrophils # (Auto) 5.0 1.8-7.8 10^3/uL Lymphocytes # (Auto) 0.9 L 1.0-4.0 10^3/uL Monocytes # (Auto) 0.5 0.0-1.0 10^3/uL Eosinophils # (Auto) 0.0 0.0-0.3 10^3/uL Basophils # (Auto) 0.0 0.0-0.1 10^3/uL Immature Granulocyte # (Auto) 0.0 0.0-0.1 10^3/uL Sodium Level 139 135-145 MMOL/L Potassium Level 4.2 3.6-5.0 MMOL/L Chloride Level 103 98-107 MMOL/L Carbon Dioxide Level 21 21-32 MMOL/L Anion Gap 15 H 5-14 MMOL/L Blood Urea Nitrogen 20 H 7-18 MG/DL Creatinine 1.01 0.60-1.30 MG/DL Estimat Glomerular Filtration Rate 74 BUN/Creatinine Ratio 20 Glucose Level 112 H 70-105 MG/DL Calcium Level 9.0 8.5-10.1 MG/DL Corrected Calcium 9.1 8.5-10.1 MG/DL Magnesium Level 1.9 1.6-2.4 MG/DL Total Bilirubin 0.9 0.1-1.0 MG/DL Aspartate Amino Transf (AST/SGOT) 42 H 5-34 U/L Alanine Aminotransferase (ALT/SGPT) 59 H 0-55 U/L Alkaline Phosphatase 78 40-136 U/L Troponin I < 0.028 <0.028 NG/ML B-Type Natriuretic Peptide 1376.0 H <100.0 PG/ML Total Protein 6.6 6.4-8.2 GM/DL Albumin 3.9 3.2-4.5 GM/DL Lipase 18 8-78 U/L Urine Color YELLOW Urine Clarity CLEAR Urine pH 5.5 5-9 Urine Specific [place] >=1.030 1.016-1.022 Urine Protein 2+ H NEGATIVE Urine Glucose (UA) NEGATIVE NEGATIVE Urine Ketones 2+ H NEGATIVE Urine Nitrite NEGATIVE NEGATIVE Urine Bilirubin 1+ H NEGATIVE Urine Urobilinogen 0.2 < = 1.0 MG/DL Urine Leukocyte Esterase NEGATIVE NEGATIVE Urine RBC (Auto) TRACE-I H NEGATIVE Urine RBC 0-2 /HPF Urine WBC 0-2 /HPF Urine Squamous Epithelial Cells 0-2 /HPF Urine Crystals NONE /LPF Urine Bacteria FEW H /HPF Urine Casts PRESENT /LPF Urine Hyaline Casts 2-5 H /LPF Urine Waxy Casts RARE H /LPF Urine Mucus MODERATE H /LPF Urine Culture Indicated YES My Orders Orders - KAITLIN CUEVA PA Ekg Tracing (02/06/22 11:32) Cbc With Automated Diff (02/06/22 11:34) Comprehensive Metabolic Panel (02/06/22 11:34) Bnp [place] (02/06/22 11:34) Troponin I [place] (02/06/22 11:34) Chest 1 View, Ap/Pa Only (02/06/22 11:34) Lipase (02/06/22 11:34) Magnesium (02/06/22 11:34) Ua Culture If Indicated (02/06/22 11:34) Ct Gloria Chest/Noang Abd-Pelv W (02/06/22 11:34) Urine Culture (02/06/22 11:45) Iohexol Injection (Omnipaque 350 Mg/Ml 1 (02/06/22 12:45) Received Contrast (Hold Metformin- Contr (02/06/22 12:45) Ns (Ivpb) (Sodium Chloride 0.9% Ivpb Bag (02/06/22 12:45) Furosemide Injection (Lasix Injection) (02/06/22 13:30) Medications Given in ED Current Medications Medications Dose Ordered Sig/Dolores Route Start Time Stop Time Status Last Admin Dose Admin Iohexol 100 ml ONCE ONCE IV 02/06/22 12:45 02/06/22 12:46 DC 02/06/22 12:39 80 ML Sodium Chloride 100 ml ONCE ONCE IV 02/06/22 12:45 02/06/22 12:46 DC 02/06/22 12:40 100 ML Vital Signs/I&O 02/06/22 11:16 Temp 36.0 Pulse 112 Resp 20 B/P (MAP) 102/81 (88) Pulse Ox 93 O2 Delivery Room Air Comment Atrial fibrillation, left bundle branch block, 95 bpm, QRS duration 154 MS, QTc 455 MS Departure Communication (PCP) Findings concerning for CHF. Bilateral leg swelling. Oxygen 86% on room air. Was placed on 2 L with improvement to 94 to 95%. History of chronic A. fib does not tolerate blood thinners. Currently on baby aspirin. No specific chest pain. Chest x-ray was concerning for CHF. No evidence of consolidation. Normal white blood count. Normal troponin BMP at 1300. Patient was given 40 mg of IV Lasix. Complaining of lower abdominal pain. CT angio of the chest was negative for PE. Bilateral pleural effusion. This was ordered secondary to history of colon cancer and shortness of breath. CT Abdo pelvis did not show any any pelvic mass, diverticulitis, colitis, obstruction. Chronic left iliac aneurysm at 3.8 with slight increase from 3.2. He has had some intermittent diarrhea. Due to the CHF and requiring oxygen patient will be admitted for further cardiac evaluation. Patient was discussed with Dr. Fu who agrees with plan of action. Impression Primary Impression: CHF (congestive heart failure) Additional Impressions: Dyspnea Chronic a-fib Disposition: ADMITTED INPATIENT Condition: Stable Admissions Decision to Admit Reason: Admit from ER (General) Decision to Admit/Date: Feb 06, 2022 Time/Decision to Admit Time: 13:17 Departure-Patient Inst. Referrals: SUKHWINDER ANDERSON MD (PCP/Family) Primary Care Physician KAITLIN CUEVA Feb 06, 2022 11:41
[2022-02-06 11:43] LABS: BASOPHILS % (AUTO) 0 % (0-10); EOSINOPHILS % (AUTO) 0 % (0-10); HEMATOCRIT 45 % (40-54); HEMOGLOBIN 14.7 g/dL (13.3-17.7); LYMPHOCYTES # (AUTO) 0.9 10^3/uL (1.0-4.0); LYMPHOCYTES % (AUTO) 14 % (12-44); MEAN CORPUSCULAR HEMOGLOBIN 30 pg (25-34); MEAN CORPUSCULAR HGB CONC 33 g/dL (32-36); MEAN CORPUSCULAR VOLUME 91 fL (80-99); MEAN PLATELET VOLUME 10.6 fL (9.0-12.2); MONOCYTES # (AUTO) 0.5 10^3/uL (0.0-1.0); MONOCYTES % (AUTO) 7 % (0-12); NEUTROPHILS % (AUTO) 78 % (42-75); PLATELET COUNT 188 10^3/uL (130-400); WHITE BLOOD COUNT 6.4 10^3/uL (4.3-11.0)
[2022-02-06 11:46] LABS: ALBUMIN 3.9 GM/DL (3.2-4.5); CHLORIDE 103 MMOL/L (98-107); POTASSIUM 4.2 MMOL/L (3.6-5.0); SODIUM 139 MMOL/L (135-145)
[2022-02-06 11:49] LABS: GLUCOSE 112 MG/DL (70-105); TOTAL PROTEIN 6.6 GM/DL (6.4-8.2)
[2022-02-06 11:49] LABS: CLARITY,URINE CLEAR; COLOR,URINE YELLOW; GLUCOSE, URINE (UA) NEGATIVE (NEGATIVE); KETONES,URINE 2+ (NEGATIVE); LEUKOCYTE ESTERASE ,URINE NEGATIVE (NEGATIVE); NITRITE,URINE NEGATIVE (NEGATIVE); PH,URINE 5.5 (5-9); PROTEIN,URINE 2+ (NEGATIVE)
[2022-02-06 11:50] LABS: BILIRUBIN,TOTAL 0.9 MG/DL (0.1-1.0); CARBON DIOXIDE 21 MMOL/L (21-32)
[2022-02-06 11:52] LABS: ALKALINE PHOSPHATASE 78 U/L (40-136); CREATININE SERUM 1.01 MG/DL (0.60-1.30); GFR ESTIMATED 74
[2022-02-06 11:53] LABS: BUN/CREATININE RATIO 20
[2022-02-06 11:55] LABS: ALANINE AMINOTRANSFERASE 59 U/L (0-55); MAGNESIUM 1.9 MG/DL (1.6-2.4)
[2022-02-06 11:56] LABS: LIPASE 18 U/L (8-78)
[2022-02-06 11:59] LABS: BACTERIA,URINE FEW /HPF; RBC,URINE 0-2 /HPF; SQUAMOUS EPITHELIAL CELL,UR 0-2 /HPF; WBC,URINE 0-2 /HPF
[2022-02-06 12:00] LABS: BILIRUBIN,URINE 1+ (NEGATIVE); WAXY CASTS,URINE RARE /LPF
--- NOTE | 2022-02-06 12:37 | Diagnostic Imaging Report ---
INDICATION: Shortness of breath. TECHNIQUE: Single view chest 12:18 PM. CORRELATION STUDY: 01/25/2022 FINDINGS: Poststernotomy change. Rather prominent severity cardiac enlargement is again demonstrated. Stable slightly increased. Vasculature overall appears slightly more prominent from prior as well. Small bilateral pleural effusions. Question minimal infiltrate, atelectasis or edema at the lung bases right greater than left. Old distal left clavicle fracture. IMPRESSION: 1. Findings of congestive heart failure, appearing adversely changed from prior. This includes what appears to be increasing in size for significant cardiac enlargement, vascular congestion along with bilateral pleural effusions. Given configuration of the heart, may be reflective of underlying cardiomyopathy versus pericardial effusion. Dictated by: Dictated on workstation # [id number]
[2022-02-06] MEDS ORDERED: IOHEXOL 350 MG/ML 100 ML (OMNIPAQUE 350) VIAL IV ONE (12:45)
[2022-02-06] MEDS ORDERED: NS 100 ML (IVPB) BAG IV ONE (12:45)
[2022-02-06] MEDS ORDERED: HOLD METFORMIN - RECEIVED CONTRAST 20 ML VIAL IV SCH (12:45)
--- NOTE | 2022-02-06 12:58 | Diagnostic Imaging Report ---
EXAMINATION: CT angiography chest with and without, CT abdomen and pelvis with and without. TECHNIQUE: Noncontrast enhanced helical images were obtained through the chest, abdomen and pelvis. Contrast enhanced thin section helical images were obtained through the chest, abdomen and pelvis with intravenous contrast timed for the optimal opacification of the arterial structures per departmental CTA protocol. Post-processing, retro reconstructions and interpretation of angiographic images of the vessels was performed. 3D MIP reconstructions were performed and reviewed. All CT scans use one or more of the following dose optimizing techniques: automated exposure control, MA and/or KvP adjustment based on patient size and exam type or iterative reconstruction. HISTORY: Shortness of breath and chest pain, abdominal pain COMPARISON: 02/18/2014 FINDINGS: There is no pulmonary embolism. There are small bilateral pleural effusions with bibasilar atelectasis. No edema or pneumonia. No pneumothorax. No suspicious nodules. There is no axillary or supraclavicular lymphadenopathy. There is no mediastinal lymphadenopathy. Heart size is normal. There are severe coronary artery calcifications. No pericardial effusion. Aorta is normal in caliber. There has been coronary artery bypass grafting. There are simple cysts in the liver. No suspicious liver lesions. There is no biliary ductal dilation. Gallbladder is surgically absent. Pancreas is normal. Spleen is normal. Adrenal glands are normal. There are simple cysts in the kidneys. No suspicious renal lesions. There is no hydronephrosis. Urinary bladder is normal. Bowel is normal in caliber without obstruction or inflammation. No free fluid or air. No abdominal or pelvic lymphadenopathy. Left common iliac artery aneurysm measures 3.8 cm, previously 3.2 cm. There are no suspicious osseus lesions. IMPRESSION: 1. No pulmonary embolism. 2. Very small bilateral pleural effusions with bibasilar atelectasis. 2. Increase in size of left common iliac artery aneurysm measuring 3.8 cm, previously 3.2 cm. Dictated by: Dictated on workstation # [id number]
[2022-02-06] MEDS ORDERED: FUROSEMIDE 40 MG/4 ML INJ (LASIX) IVP ONE (13:30)
[2022-02-06] MEDS ORDERED: FUROSEMIDE 40 MG/4 ML INJ (LASIX) ONE (13:39)
[2022-02-06] MEDS ORDERED: CATHETER FLUSH 10 ML SYR IV PRN (15:30)
[2022-02-06 16:27] VITALS: BP 125/89
[2022-02-06 19:40] VITALS: BP 120/84
[2022-02-06] MEDS: CATHETER FLUSH 10 ML SYR IV SCH (22:12)
[2022-02-07] VITALS (7 sets, daily range): BP systolic 117–137; BP diastolic 79–98
[2022-02-07] MEDS: CATHETER FLUSH 10 ML SYR IV SCH ×3 (05:16→22:03)
[2022-02-07 05:55] LABS: BASOPHILS % (AUTO) 0 % (0-10); EOSINOPHILS # (AUTO) 0.2 10^3/uL (0.0-0.3); EOSINOPHILS % (AUTO) 4 % (0-10); HEMATOCRIT 41 % (40-54); HEMOGLOBIN 13.3 g/dL (13.3-17.7); LYMPHOCYTES % (AUTO) 18 % (12-44); MEAN CORPUSCULAR HEMOGLOBIN 30 pg (25-34); MEAN CORPUSCULAR HGB CONC 32 g/dL (32-36); MEAN CORPUSCULAR VOLUME 92 fL (80-99); MEAN PLATELET VOLUME 10.3 fL (9.0-12.2); MONOCYTES # (AUTO) 0.5 10^3/uL (0.0-1.0); MONOCYTES % (AUTO) 10 % (0-12); NEUTROPHILS # (AUTO) 3.7 10^3/uL (1.8-7.8); NEUTROPHILS % (AUTO) 68 % (42-75); PLATELET COUNT 158 10^3/uL (130-400); WHITE BLOOD COUNT 5.5 10^3/uL (4.3-11.0)
[2022-02-07 06:12] LABS: POTASSIUM 3.9 MMOL/L (3.6-5.0)
[2022-02-07 06:13] LABS: CALCIUM 8.4 MG/DL (8.5-10.1)
[2022-02-07 06:17] LABS: CREATININE SERUM 0.99 MG/DL (0.60-1.30)
[2022-02-07] MEDS ORDERED: polyethylene glycoL POWDER 17 GM (MIRALAX) PACK PO PRN (08:15)
[2022-02-07] MEDS: SENNA W/DOCUSATE (SENOKOT S) TABLET PO SCH ×2 (09:00→20:08)
[2022-02-07] MEDS: DOCUSATE SODIUM 100 MG (COLACE) CAP PO SCH ×2 (09:00→20:08)
[2022-02-07] MEDS ORDERED: ASPIRIN E.C. 81 MG (ECOTRIN) TAB PO SCH (09:00)
[2022-02-07] MEDS: FUROSEMIDE 40 MG/4 ML INJ (LASIX) IVP SCH (09:42)
[2022-02-07] MEDS ORDERED: PATIENT MAY USE OWN MEDS, ALL MC SCH (11:30)
[2022-02-07] MEDS: ALPRAZolam 0.25 MG (XANAX) TAB PO PRN (11:32)
--- NOTE | 2022-02-07 12:14 | Consultation-Cardiology ---
HPI-Cardiology Cardiology Consultation: Date of Consultation 02/07/22 Date of Admission Attending Physician Sukhwinder Carlos MD Admitting Physician Admitting Physician: Brenda Pelaez MD Attending Physician: Delisa García MD Consulting Physician RUPAL SANDOVAL Review of Systems-Cardiology All Other Systems Reviewed Negative Unless Noted: Yes [id number] Hx Patient Social History Former smoker/When Quit: Jun 24, 1980 2nd Hand Smoke Exposure: No Have you traveled recently?: No Alcohol Use?: No Pt feels they are or have been: No Immunizations Up To Date Tetanus Booster (TDap): Unknown Date of Pneumonia Vaccine: Jun 12, 2017 Date of Influenza Vaccine: Jun 10, 2020 Past Medical History PMH As described under Assessment. Allergies and Home Medications Allergies Coded Allergies: No Known Drug Allergies (Unverified , 10/22/19) Patient Home Medication List Aspirin (Aspirin) 81 Mg Tab.chew, 81 MG PO DAILY, (Reported) Entered as Reported by: LUKE SIMPSON on 08/11/20 1328 Last Action: Reviewed Cholecalciferol (Vitamin D3) (Vitamin D3) 10 Mcg Tablet, 10 MCG PO DAILY, (Reported) Entered as Reported by: LUKE SIMPSON on 08/11/20 1328 Last Action: Reviewed Diltiazem HCl (Cardizem Cd) 180 Mg Cap.er.24h, 180 MG PO DAILY, (Reported) Entered as Reported by: LUKE SIMPSON on 08/08/17 0956 Last Action: Reviewed Diltiazem HCl (Diltiazem 24Hr ER) 240 Mg Cap.er.24h, 240 MG PO DAILY Prescribed by: RUPAL GAMEZ on 02/09/22 0824 Furosemide (Lasix) 40 Mg Tablet, 40 MG PO DAILY Prescribed by: RUPAL GAMEZ on 02/09/22 0824 Multivitamin (Multivitamins) 1 Each Tablet, 1 EACH PO DAILY, (Reported) Entered as Reported by: LUKE SIMPSON on 08/08/17 0956 Last Action: Reviewed Pantoprazole Sodium (Pantoprazole Sodium) 40 Mg Tablet.dr, 40 MG PO DAILY PRN for GERD, (Reported) Entered as Reported by: TORREY SHETTY on 02/07/22 1426 Last Action: Reviewed Sacubitril/Valsartan (Entresto 24 mg-26 mg Tablet) 24 Mg-26 Mg Tablet, 1 TAB PO BID Prescribed by: RUPAL GAMEZ on 02/09/22823 Spironolactone (Spironolactone) 25 Mg Tablet, 25 MG PO DAILY Prescribed by: RUPAL GAMEZ on 02/09/22823 Discontinued Medications Dabigatran Etexilate Mesylate (Pradaxa) 150 Mg Capsule, 150 MG PO BID, (Reported) Discontinued Reason: No Longer Taking Entered as Reported by: SOO ROSARIO on 10/22/19 1240 Last Action: Discontinued Ferrous Sulfate (Iron) 325 Mg Tablet, 325 MG PO DAILY, (Reported) Discontinued Reason: No Longer Taking Entered as Reported by: LUKE SIMPSON on 08/11/201327 Last Action: Discontinued Magnesium Oxide (Magnesium) 500 Mg Capsule, 500 MG PO HS, (Reported) Discontinued Reason: No Longer Taking Entered as Reported by: LUKE SIMPSON on 08/11/201327 Last Action: Discontinued Ondansetron (Ondansetron Odt) 4 Mg Tab.rapdis, 4 MG PO Q6H PRN for NAUSEA/VOMITING Discontinued Reason: No Longer Taking Prescribed by: BRENTON PEREZ on 01/25/22 1541 Last Action: Discontinued Pantoprazole Sodium (Protonix) 40 Mg Tablet.dr, 40 MG PO DAILY Discontinued Reason: No Longer Taking Prescribed by: ESTEFANÍA PRINCE on 08/14/20 0801 Last Action: Discontinued Ubidecarenone (Coq-10) 100 Mg Capsule, 100 MG PO DAILY, (Reported) Discontinued Reason: No Longer Taking Entered as Reported by: LUKE SIMPSON on 08/11/201327 Last Action: Discontinued Physical Exam-Cardiology Physical Exam Vital Signs/I&O 02/08/22 02/09/22 02/09/22 23:56 01:00 07:32 Temp 36.3 36.7 Pulse 89 75 94 Resp 18 19 B/P (MAP) 126/73 (90) 137/75 (95) Pulse Ox 92 93 O2 Delivery Room Air Room Air 02/09/22 00:00 Intake Total 2240 ml Output Total 2375 ml Balance -135 ml Capillary Refill : Less Than 3 Seconds Data Review Labs Laboratory Tests 02/08/22 09:00: Sodium Level 144, Potassium Level 4.1, Chloride Level 102, Carbon Dioxide Level 28, Anion Gap 14, Blood Urea Nitrogen 18, Creatinine 1.03, Estimat Glomerular Filtration Rate 73, BUN/Creatinine Ratio 17, Glucose Level 150H, Calcium Level 9.2 Microbiology 02/06/22 Urine Culture - Final, Complete Gram Pos Mixed Bacterial Flor Radiology NAME: JAVON ARDON REC#: [id number] PT STATUS: REG ER : 1940 PHYSICIAN: KAITLIN CUEVA ADMIT DATE: 02/06/22/ER Signed Date of Exam:02/06/22 CT GISELLE CHEST/NOANG ABD-PELV W EXAMINATION: CT angiography chest with and without, CT abdomen and pelvis with and without. TECHNIQUE: Noncontrast enhanced helical images were obtained through the chest, abdomen and pelvis. Contrast enhanced thin section helical images were obtained through the chest, abdomen and pelvis with intravenous contrast timed for the optimal opacification of the arterial structures per departmental CTA protocol. Post-processing, retro reconstructions and interpretation of angiographic images of the vessels was performed. 3D MIP reconstructions were performed and reviewed. All CT scans use one or more of the following dose optimizing techniques: automated exposure control, MA and/or KvP adjustment based on patient size and exam type or iterative reconstruction. HISTORY: Shortness of breath and chest pain, abdominal pain COMPARISON: 02/18/2014 FINDINGS: There is no pulmonary embolism. There are small bilateral pleural effusions with bibasilar atelectasis. No edema or pneumonia. No pneumothorax. No suspicious nodules. There is no axillary or supraclavicular lymphadenopathy. There is no mediastinal lymphadenopathy. Heart size is normal. There are severe coronary artery calcifications. No pericardial effusion. Aorta is normal in caliber. There has been coronary artery bypass grafting. There are simple cysts in the liver. No suspicious liver lesions. There is no biliary ductal dilation. Gallbladder is surgically absent. Pancreas is normal. Spleen is normal. Adrenal glands are normal. There are simple cysts in the kidneys. No suspicious renal lesions. There is no hydronephrosis. Urinary bladder is normal. Bowel is normal in caliber without obstruction or inflammation. No free fluid or air. No abdominal or pelvic lymphadenopathy. Left common iliac artery aneurysm measures 3.8 cm, previously 3.2 cm. There are no suspicious osseus lesions. IMPRESSION: 1. No pulmonary embolism. 2. Very small bilateral pleural effusions with bibasilar atelectasis. 2. Increase in size of left common iliac artery aneurysm measuring 3.8 cm, previously 3.2 cm. 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 Prince and endoscopy in early 2020 that, he states, showed duodenitis with duodenal ulcer. OAC held, then resumed months later that led to recurrence of severe anemia that has been treated with iron replacement - He has has full GI w/u with Dr. Carlson and found to have AVM which is considered the cause of his bleeding - Considered intolerant to OAC Sinus node dysfunction, chronic atrial fibrillation - CHADSVasc score 3 - Previously on OAC with Pradaxa - considered intolerant d/t recurrent GI bleeds - he does not wish to be on OAC - he verbalizes understanding of the possible deleterious effects of not being on OAC, including increased risk of stroke Coronary artery disease: - coronary artery bypass surgery consistent of left internal mammary artery graft to left anterior descending and a saphenous vein graft to first diagonal by Dr. Larson at [facility] in July 2010. - MPI of 06/06/17: no ischemia or infarction, LVEF 55% - Echo of 06/15/17: : LVEF 60-65%, trivial AI, PASP approx 25 mmHg Carotid dz: - Minimal carotid arterial disease on carotid u/s of 06/20/17 No AAA on a AAA screening scan of 06/20/17 Hyperlipidemia. -Intolerance to statin therapy due to generalized muscle aches Medication Intolerance: - Intolerance to beta-blockers which cause depression. Colon carcinoma: - History of colectomy for colon carcinoma several years ago. History of mild chronic anxiety/depression - currently controlled Gastroesophageal reflux - documented on endoscopy of March 2012 H/o tobacco use - quit in the 1980s RUPAL GAMEZ Feb 07, 2022 12:14
[2022-02-07] MEDS ORDERED: PANT40TA52 PO (14:26)
--- NOTE | 2022-02-07 17:24 | Consultation-Cardiology ---
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 No cp. Does note the h eart rate to be generally fast and irreg. Notes bilateral ankle swelling. Notes gen malaise and weakness. Tires easily. No fever or chills Review of Systems-Cardiology Review of Systems Constitutional: malaise, tiredness; No weight loss, No weight gain Eyes: No vision change Ears/Nose/Throat: No ear discharge, No nasal drainage, No recent hearing loss Respiratory: As described under HPI Cardiovascular: As described under HPI Gastrointestinal: No diarrhea, No nausea, No vomiting Genitourinary: No hematuria Musculoskeletal: back pain (chronic) Skin: No ulcerations Psychiatric/Neurological: No seizure, No focal weakness, No syncope Hematologic: No bleeding abnormalities All Other Systems Reviewed Negative Unless Noted: Yes JXJ-Ivikyr-Pfseol Hx Patient Social History Former smoker/When Quit: Jun 24, 1980 2nd Hand Smoke Exposure: No Have you traveled recently?: No Alcohol Use?: No Pt feels they are or have been: No Immunizations Up To Date Tetanus Booster (TDap): Unknown Date of Pneumonia Vaccine: Jun 12, 2017 Date of Influenza Vaccine: Jun 10, 2020 Past Medical History PMH As described under Assessment. Family Medical History Family Medical History: No fam h/o early CAD Allergies and Home Medications Allergies Coded Allergies: No Known Drug Allergies (Unverified , 10/22/19) Patient Home Medication List Home Medication List Reviewed: Yes Aspirin (Aspirin) 81 Mg Tab.chew, 81 MG PO DAILY, (Reported) Entered as Reported by: LUKE SIMPSON on 08/11/20 1328 Last Action: Reviewed Cholecalciferol (Vitamin D3) (Vitamin D3) 10 Mcg Tablet, 10 MCG PO DAILY, (Reported) Entered as Reported by: LUKE SIMPSON on 08/11/20 1328 Last Action: Reviewed Diltiazem HCl (Cardizem Cd) 180 Mg Cap.er.24h, 180 MG PO DAILY, (Reported) Entered as Reported by: LUKE SIMPSON on 08/08/17 0956 Last Action: Reviewed Multivitamin (Multivitamins) 1 Each Tablet, 1 EACH PO DAILY, (Reported) Entered as Reported by: LUKE SIMPSON on 08/08/17 0956 Last Action: Reviewed Pantoprazole Sodium (Pantoprazole Sodium) 40 Mg Tablet.dr, 40 MG PO DAILY PRN for GERD, (Reported) Entered as Reported by: TORREY SHETTY on 02/07/22 1426 Last Action: Reviewed Discontinued Medications Dabigatran Etexilate Mesylate (Pradaxa) 150 Mg Capsule, 150 MG PO BID, (Reported) Discontinued Reason: No Longer Taking Entered as Reported by: SOO ROSARIO on 10/22/19 1240 Last Action: Discontinued Ferrous Sulfate (Iron) 325 Mg Tablet, 325 MG PO DAILY, (Reported) Discontinued Reason: No Longer Taking Entered as Reported by: LUKE SIMPSON on 08/11/20 1328 Last Action: Discontinued Magnesium Oxide (Magnesium) 500 Mg Capsule, 500 MG PO HS, (Reported) Discontinued Reason: No Longer Taking Entered as Reported by: LUKE SIMPSON on 08/11/20 1328 Last Action: Discontinued Ondansetron (Ondansetron Odt) 4 Mg Tab.rapdis, 4 MG PO Q6H PRN for NAUSEA/VOMITING Discontinued Reason: No Longer Taking Prescribed by: BRENTON PEREZ on 01/25/22 1541 Last Action: Discontinued Pantoprazole Sodium (Protonix) 40 Mg Tablet.dr, 40 MG PO DAILY Discontinued Reason: No Longer Taking Prescribed by: ESTEFANÍA PRINCE on 08/14/20 0801 Last Action: Discontinued Ubidecarenone (Coq-10) 100 Mg Capsule, 100 MG PO DAILY, (Reported) Discontinued Reason: No Longer Taking Entered as Reported by: LUKE SIMPSON on 08/11/20 1328 Last Action: Discontinued Physical Exam-Cardiology Physical Exam Vital Signs/I&O 02/07/22 02/07/22 02/07/22 02/07/22 07:09 07:48 08:15 11:39 Temp 36.7 36.8 Pulse 104 101 105 Resp 17 17 B/P (MAP) 137/93 (108) 130/88 (102) Pulse Ox 93 95 O2 Delivery Nasal Cannula Nasal Cannula Nasal Cannula O2 Flow Rate 2.00 2.00 2.00 02/07/22 02/07/22 02/07/22 11:49 13:06 16:31 Temp 36.7 Pulse 116 94 Resp 20 B/P (MAP) 118/89 (99) Pulse Ox 95 95 O2 Delivery Nasal Cannula Nasal Cannula O2 Flow Rate 2.00 2.00 02/07/22 00:00 Intake Total 540 ml Output Total 1075 ml Balance -535 ml Capillary Refill : Less Than 3 Seconds Constitutional: AAO x 3, well-developed, well-nourished HEENT: EOMI, hearing is well preserved; No xanthelasmas are seen Neck: carotid pulses are 2 + bilaterally, with good upstrokes Respiratory: No accessory muscle use; other (basal crackles and fine rales) Cardiovascular: irregularly irregular, S1 and S2, systolic murmur (soft CHIDI at card base) Gastrointestinal: No tender; soft; No guarding, No rebound; audible bowel sounds Extremities: other (mild, bilateral leg edema); No clubbing, No cyanosis Neurologic/Psychiatric: oriented x 3, other (moves all limbs equally) Skin: No rash on exposed areas, No ulcerations on exposed areas Data Review Labs Laboratory Tests 02/07/22 05:50: White Blood Count 5.5, Red Blood Count 4.47, Hemoglobin 13.3, Hematocrit 41, Mean Corpuscular Volume 92, Mean Corpuscular Hemoglobin 30, Mean Corpuscular Hemoglobin Concent 32, Red Cell Distribution Width 14.3, Platelet Count 158, Mean Platelet Volume 10.3, Immature Granulocyte % (Auto) 0, Neutrophils (%) (Auto) 68, Lymphocytes (%) (Auto) 18, Monocytes (%) (Auto) 10, Eosinophils (%) (Auto) 4, Basophils (%) (Auto) 0, Neutrophils # (Auto) 3.7, Lymphocytes # (Auto) 1.0, Monocytes # (Auto) 0.5, Eosinophils # (Auto) 0.2, Basophils # (Auto) 0.0, Immature Granulocyte # (Auto) 0.0, Sodium Level 140, Potassium Level 3.9, Chloride Level 104, Carbon Dioxide Level 25, Anion Gap 11, Blood Urea Nitrogen 19H, Creatinine 0.99, Estimat Glomerular Filtration Rate 76, BUN/Creatinine Ratio 19, Glucose Level 85, Calcium Level 8.4L Microbiology 02/06/22 Urine Culture - Preliminary, Resulted Culture In Progress Laboratory Tests 02/06/22 11:25 02/07/22 05:50 A/P-Cardiology Assessment/Admission Diagnosis 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 Prince and endoscopy in early 2020 that, he states, showed duodenitis with duodenal ulcer. OAC held, then resumed months later that led to recurrence of severe anemia that has been treated with iron replacement - He has has full GI w/u with Dr. Carlson and found to have AVM which is considered the cause of his bleeding - Considered intolerant to OAC Sinus node dysfunction, chronic atrial fibrillation - CHADSVasc score 3 - Previously on OAC with Pradaxa - considered intolerant d/t recurrent GI bleeds - he does not wish to be on OAC - he verbalizes understanding of the possible deleterious effects of not being on OAC, including increased risk of stroke Coronary artery disease: - coronary artery bypass surgery consistent of left internal mammary artery graft to left anterior descending and a saphenous vein graft to first diagonal by Dr. Larson at [facility] in July 2010. - MPI of 06/06/17: no ischemia or infarction, LVEF 55% - Echo of 06/15/17: : LVEF 60-65%, trivial AI, PASP approx 25 mmHg Carotid dz: - Minimal carotid arterial disease on carotid u/s of 06/20/17 No AAA on an AAA screening scan of 06/20/17 Hyperlipidemia. -Intolerance to statin therapy due to generalized muscle aches Medication Intolerance: - Intolerance to beta-blockers which cause depression. Colon carcinoma: - History of colectomy for colon carcinoma several years ago. History of mild chronic anxiety/depression - currently controlled Gastroesophageal reflux - documented on endoscopy of March 2012 H/o tobacco use - quit in the 1980s Discussion and Recomendations * Increase diltiazem for better rate control * Add Entresto to treat dilated cardiomyopathy * Add spironlactone to furosemide to control heart failure * Continue ASA * Not suitable for OAC (see under Assessment) * Monitor labs closely GITA RIZVI MD FACP [facility] CCDS Feb 07, 2022 17:24
[2022-02-07] MEDS ORDERED: SPIRONOLACTONE 25 MG (ALDACTONE) TAB PO NR (17:30)
--- NOTE | 2022-02-07 19:52 | History & Physical-Hospitalist ---
History of Present Illness HPI/Chief Complaint Booker Franco is an 81 year old male with PMH colon cancer s/p colectomy, paroxysmal atrial fibrillation, AV malformations of the small intestine, coronary artery disease, who presented with shortness of breath. He also reports leg swelling. He denies orthopnea. He has some dyspnea with exertion. He denies chest pain. He has had abdominal pain. He relates this to his anxiety and depression. He tried Zoloft but stopped it after two weeks. He reports a poor appetite. Source: patient Exam Limitations: no limitations Date Seen 02/07/22 Time Seen by a Provider: 11:15 Attending Physician Jared Carlos MD PCP Admitting Physician: Brenda Pelaez MD Attending Physician: Viv Olsen MD Referring Physician Date of Admission Feb 06, 2022 at 13:19 Home Medications & Allergies Home Medications Reviewed patient Home Medication Reconciliation performed by pharmacy medication reconciliations holter technician and/or nursing. Patients Allergies have been reviewed. Allergies Allergies Coded Allergies No Known Drug Allergies (Unverified10/22/19) Past Rczpgpf-Ompabp-Qplkji Hx Patient Social History Tobacco Use?: No Use of E-Cig and/or Vaping dev: No Substance use?: No Alcohol Use?: No Pt feels they are or have been: No Immunizations Up To Date Date of Influenza Vaccine: Jun 10, 2020 First/Initial COVID19 Vaccinat: DOES NOT HAVE CARD, HAS HAD 4 VACCINES Second COVID19 Vaccination Pablo: moderna Tetanus Booster (TDap): More Than 5 Years Date of Pneumonia Vaccine: Jun 12, 2017 Seasonal Allergies Seasonal Allergies: Yes Current Status Advance Directives: Yes Advance Directive Location: Family to bring in copy Communicates: Verbally Primary Language: Icelandic Preferred Spoken Language: Icelandic Is interpretation needed?: No Sensory deficits: Vision impairment Implanted or Applied Medical D: None Past Medical History Surgeries: Appendectomy, CABG, Gallbladder Currently Using CPAP: No Currently Using BIPAP: No Atrial Fibrillation, Deep Vein Thrombosis, Hypertension Sexually Transmitted Disease: No HIV/AIDS: No Chronic Constipation, Polyps Loss of Vision: Bilateral Hearing Impairment: Denies Colon Did You Recieve Any Treatments: Yes What Type of Treatment Did You: Surgical Intervention Depression Blood Disorders: Yes (ANEMIA) Adverse Reaction/Blood Tranf: No (N/A) Family Medical History Psychiatric Problems Review of Systems Constitutional: weakness EENTM: no symptoms reported Respiratory: dyspnea on exertion, short of breath Cardiovascular: no symptoms reported Gastrointestinal: loss of appetite Genitourinary: no symptoms reported Musculoskeletal: no symptoms reported Skin: no symptoms reported Psychiatric/Neurological: No Symptoms Reported Physical Exam Physical Exam Vital Signs Vital Signs - First Documented 02/06/22 02/06/22 11:16 14:45 Temp 36.0 Pulse 112 Resp 20 B/P (MAP) 102/81 (88) Pulse Ox 93 O2 Delivery Room Air O2 Flow Rate 2.00 Capillary Refill : Less Than 3 Seconds Height, Weight, BMI Height: 5'7.00" Weight: 188lbs. 1.0oz. 85.651352te; 30.42 BMI Method: General Appearance: No Apparent Distress, Anxious, Obese HEENT: PERRL/EOMI, Pharynx Normal Neck: Normal Inspection, Supple Respiratory: Lungs Clear, Normal Breath Sounds, No Respiratory Distress Cardiovascular: Regular Rate, Rhythm, No Edema, No Murmur Gastrointestinal: Normal Bowel Sounds, Non Tender, Soft Extremity: Normal Inspection, Pedal Edema, Swelling Neurologic/Psychiatric: Alert, No Motor/Sensory Deficits Skin: Normal Color, Warm/Dry Results Results/Procedures Labs Laboratory Tests 02/06/22 11:25 02/07/22 05:50 Patient resulted labs reviewed. Imaging: Reviewed Imaging Report Assessment/Plan Admission Diagnosis Acute heart failure with reduced ejection fraction Admission Status: Observation Assessment and Plan Acute HFrEF AFib HTN HLD CAD CXR consistent with CHF BNP elevated Echo with EF 35-40% Cardiology consulted, follows with Dr. Armendariz IV Lasix Started on Entresto and Spironolactone Increasing Diltiazem Unable to tolerate therapeutic anticoagulation Unable to tolerate statins Unable to tolerate beta blockers Continue ASA Depression Anxiety Anorexia Begin Remeron Xanax as needed Obesity Clinically significant, no acute management needs Diagnosis/Problems Diagnosis/Problems (1) Acute HFrEF (heart failure with reduced ejection fraction) Status: Acute (2) CAD (coronary artery disease) Status: Chronic (3) Afib Status: Chronic (4) HTN (hypertension) Status: Chronic (5) HLD (hyperlipidemia) Status: Chronic (6) Anxiety Status: Acute (7) Depression Status: Acute (8) Anorexia Status: Acute (9) Obesity Status: Chronic VIV OLSEN MD Feb 07, 2022 19:52
[2022-02-07] MEDS: MIRTAZAPINE 15 MG (REMERON) TAB PO SCH (20:08)
[2022-02-07] MEDS: SACUBITRIL/VALSARTAN 24/26 MG (ENTRESTO) TABLET PO SCH (20:09)
[2022-02-08 03:51] VITALS: BP 108/76
[2022-02-08] MEDS: CATHETER FLUSH 10 ML SYR IV SCH ×3 (06:19→21:00)
[2022-02-08 07:40] VITALS: BP 143/82
[2022-02-08] MEDS: DOCUSATE SODIUM 100 MG (COLACE) CAP PO SCH ×3 (08:17→20:26)
[2022-02-08] MEDS: SPIRONOLACTONE 25 MG (ALDACTONE) TAB PO SCH (08:18)
[2022-02-08] MEDS: SACUBITRIL/VALSARTAN 24/26 MG (ENTRESTO) TABLET PO SCH ×2 (08:18→20:26)
[2022-02-08] MEDS: FUROSEMIDE 40 MG/4 ML INJ (LASIX) IVP SCH (08:19)
[2022-02-08] MEDS: SENNA W/DOCUSATE (SENOKOT S) TABLET PO SCH ×2 (08:23→20:27)
[2022-02-08] MEDS: ASPIRIN 81 MG CHEW (CHILDREN'S ASA) PO SCH (08:23)
--- NOTE | 2022-02-08 09:08 | Progress Note - Cardiology ---
Cardiology SOAP Progress Note Subjective: Shortness of breath improved but not resolved No cp Palp better Swelling better but not resolved Notes gen malaise and weakness Objective: I&O/Vital Signs 02/07/22 02/08/22 02/08/22 02/08/22 23:10 01:00 03:51 07:00 Temp 36.5 36.6 Pulse 86 88 96 106 Resp 22 B/P (MAP) 124/79 (94) 108/76 (87) Pulse Ox 98 95 O2 Delivery Nasal Cannula Nasal Cannula O2 Flow Rate 2.00 2.00 02/08/22 02/08/22 07:40 08:28 Temp 36.4 Pulse 96 Resp 20 B/P (MAP) 143/82 (102) Pulse Ox 94 O2 Delivery Nasal Cannula Room Air O2 Flow Rate 2.00 02/08/22 00:00 Intake Total 1136 ml Output Total 1000 ml Balance 136 ml Weight (Pounds): 188 Weight (Ounces): 1.0 Weight (Calculated Kilograms): 85.685385 Constitutional: AAO x 3, well-developed, well-nourished Respiratory: No accessory muscle use; other (basal crackles and fine rales) Cardiovascular: irregularly irregular, S1 and S2, systolic murmur (soft CHIDI at card base) Gastrointestional: No tender; soft; No guarding, No rebound; audible bowel sounds Extremities: other (mild, bilateral leg edema); No clubbing, No cyanosis Neurologic/Psychiatric: oriented x 3, other (moves all limbs equally) Skin: No rash on exposed areas, No ulcerations on exposed areas Results/Procedures: Labs Microbiology 02/06/22 Urine Culture - Preliminary, Resulted Culture In Progress A/P: Assessment: 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 Smith and endoscopy in early 2020 that, he states, showed duodenitis with duodenal ulcer. OAC held, then resumed months later that led to recurrence of severe anemia that has been treated with iron replacement - He has has full GI w/u with Dr. Carlson and found to have AVM which is considered the cause of his bleeding - Considered intolerant to OAC Sinus node dysfunction, chronic atrial fibrillation - CHADSVasc score 3 - Previously on OAC with Pradaxa - considered intolerant d/t recurrent GI bleeds - he does not wish to be on OAC - he verbalizes understanding of the possible deleterious effects of not being on OAC, including increased risk of stroke Coronary artery disease: - coronary artery bypass surgery consistent of left internal mammary artery graft to left anterior descending and a saphenous vein graft to first diagonal by Dr. Larson at [facility] in July 2010. - MPI of 06/06/17: no ischemia or infarction, LVEF 55% - Echo of 06/15/17: : LVEF 60-65%, trivial AI, PASP approx 25 mmHg Carotid dz: - Minimal carotid arterial disease on carotid u/s of 06/20/17 No AAA on an AAA screening scan of 06/20/17 Hyperlipidemia. -Intolerance to statin therapy due to generalized muscle aches Medication Intolerance: - Intolerance to beta-blockers which cause depression. Colon carcinoma: - History of colectomy for colon carcinoma several years ago. History of mild chronic anxiety/depression - currently controlled Gastroesophageal reflux - documented on endoscopy of March 2012 H/o tobacco use - quit in the 1980s Plan: * Heart rate better but need to observe when more ambulatory. Increase diltiazem,if needed, for better rate control * Continue Entresto to treat dilated cardiomyopathy * Continue oral spironlactone to iv furosemide to control heart failure * Continue ASA * Not suitable for OAC (see under Assessment) * Monitor labs closely * We recommend continuing hospitalization today GITA RIZVI MD FACP [facility] CCDS Feb 08, 2022 09:08
[2022-02-08 09:29] LABS: CALCIUM 9.2 MG/DL (8.5-10.1); CREATININE SERUM 1.03 MG/DL (0.60-1.30); POTASSIUM 4.1 MMOL/L (3.6-5.0)
[2022-02-08 11:26] VITALS: BP 105/64
[2022-02-08 16:01] VITALS: BP 159/64
--- NOTE | 2022-02-08 17:12 | Progress Note - Hospitalist ---
Subjective HPI/CC On Admission Date Seen by Provider: Feb 08, 2022 Time Seen by Provider: 10:20 Booker Franco is an 81 year old male with PMH colon cancer s/p colectomy, paroxysmal atrial fibrillation, AV malformations of the small intestine, coronary artery disease, who presented with shortness of breath. He also reports leg swelling. He denies orthopnea. He has some dyspnea with exertion. He denies chest pain. He has had abdominal pain. He relates this to his anxiety and depression. He tried Zoloft but stopped it after two weeks. He reports a poor appetite. Subjective/Events-last exam He is doing better. He is not needing oxygen. He slept well last night. His swelling is still present in his legs. Objective Exam Vital Signs Vital Signs Date Time Temp Pulse Resp B/P (MAP) Pulse Ox O2 Delivery O2 Flow Rate FiO2 02/08/22 16:01 36.8 92 18 159/64 (95) 94 Room Air 02/08/22 07:40 2.00 Capillary Refill : Less Than 3 Seconds General Appearance: No Apparent Distress, WD/WN Respiratory: Lungs Clear, No Respiratory Distress Cardiovascular: Regular Rate, Rhythm, No Murmur Gastrointestinal: Normal Bowel Sounds, Soft Extremity: Normal Inspection, Pedal Edema, Swelling Neurologic/Psychiatric: Alert, Normal Mood/Affect Skin: Normal Color, Warm/Dry Results/Procedures Lab Laboratory Tests 02/08/22 09:00 Patient resulted labs reviewed. Imaging: Reviewed Imaging Report Assessment/Plan Assessment and Plan Assess & Plan/Chief Complaint Acute HFrEF AFib HTN HLD CAD CXR consistent with CHF BNP elevated Echo with EF 35-40% Cardiology following Continue IV Lasix Continue Entresto and Spironolactone Continue Diltiazem Unable to tolerate therapeutic anticoagulation Unable to tolerate statins Unable to tolerate beta blockers Continue ASA Depression Anxiety Anorexia Continue Remeron Xanax as needed Obesity Clinically significant, no acute management needs Diagnosis/Problems Diagnosis/Problems (1) Acute HFrEF (heart failure with reduced ejection fraction) Status: Acute (2) CAD (coronary artery disease) Status: Chronic (3) Afib Status: Chronic (4) HTN (hypertension) Status: Chronic (5) HLD (hyperlipidemia) Status: Chronic (6) Anxiety Status: Acute (7) Depression Status: Acute (8) Anorexia Status: Acute (9) Obesity Status: Chronic VIV OLSEN MD Feb 08, 2022 17:12
[2022-02-08] MEDS: MIRTAZAPINE 15 MG (REMERON) TAB PO SCH (20:26)
[2022-02-08 23:56] VITALS: BP 126/73
[2022-02-09] MEDS: CATHETER FLUSH 10 ML SYR IV SCH (05:58)
[2022-02-09 07:32] VITALS: BP 137/75
[2022-02-09] MEDS ORDERED: FURO-124 PO (08:24)
[2022-02-09] MEDS ORDERED: SPIR25TA5 PO (08:24)
[2022-02-09] MEDS ORDERED: DILT240C91 PO (08:24)
[2022-02-09] MEDS ORDERED: SACU1TAB2 PO (08:24)
--- NOTE | 2022-02-09 08:41 | Progress Note - Cardiology ---
Cardiology SOAP Progress Note Subjective: Up ambulating in the halls Objective: I&O/Vital Signs 02/08/22 02/09/22 02/09/22 23:56 01:00 07:32 Temp 36.3 36.7 Pulse 89 75 94 Resp 18 19 B/P (MAP) 126/73 (90) 137/75 (95) Pulse Ox 92 93 O2 Delivery Room Air Room Air 02/09/22 00:00 Intake Total 2240 ml Output Total 2375 ml Balance -135 ml Weight (Pounds): 188 Weight (Ounces): 1.0 Weight (Calculated Kilograms): 85.206891 Constitutional: AAO x 3, well-developed, well-nourished Respiratory: No accessory muscle use; other (basal crackles and fine rales) Cardiovascular: irregularly irregular, S1 and S2, systolic murmur (soft CHIDI at card base) Gastrointestional: No tender; soft; No guarding, No rebound; audible bowel sounds Extremities: other (mild, bilateral leg edema); No clubbing, No cyanosis Neurologic/Psychiatric: oriented x 3, other (moves all limbs equally) Skin: No rash on exposed areas, No ulcerations on exposed areas Results/Procedures: Labs Laboratory Tests 02/08/22 09:00: Sodium Level 144, Potassium Level 4.1, Chloride Level 102, Carbon Dioxide Level 28, Anion Gap 14, Blood Urea Nitrogen 18, Creatinine 1.03, Estimat Glomerular Filtration Rate 73, BUN/Creatinine Ratio 17, Glucose Level 150H, Calcium Level 9.2 Microbiology 02/06/22 Urine Culture - Final, Complete Gram Pos Mixed Bacterial Flor Laboratory Tests 02/08/22 09:00 A/P: Assessment: 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 Smith and endoscopy in early 2020 that, he states, showed duodenitis with duodenal ulcer. OAC held, then resumed months later that led to recurrence of severe anemia that has been treated with iron replacement - He has has full GI w/u with Dr. Carlson and found to have AVM which is cons idered the cause of his bleeding - Considered intolerant to OAC Sinus node dysfunction, chronic atrial fibrillation - CHADSVasc score 3 - Previously on OAC with Pradaxa - considered intolerant d/t recurrent GI bleeds - he does not wish to be on OAC - he verbalizes understanding of the possible deleterious effects of not being on OAC, including increased risk of stroke Coronary artery disease: - coronary artery bypass surgery consistent of left internal mammary artery graft to left anterior descending and a saphenous vein graft to first diagonal by Dr. Larson at [facility] in July 2010. - MPI of 06/06/17: no ischemia or infarction, LVEF 55% - Echo of 06/15/17: : LVEF 60-65%, trivial AI, PASP approx 25 mmHg Carotid dz: - Minimal carotid arterial disease on carotid u/s of 06/20/17 No AAA on an AAA screening scan of 06/20/17 Hyperlipidemia. -Intolerance to statin therapy due to generalized muscle aches Medication Intolerance: - Intolerance to beta-blockers which cause depression. Colon carcinoma: - History of colectomy for colon carcinoma several years ago. History of mild chronic anxiety/depression - currently controlled Gastroesophageal reflux - documented on endoscopy of March 2012 H/o tobacco use - quit in the 1980s Plan: * Heart rate better but need to observe when more ambulatory. Increase diltiazem,if needed, for better rate control * Continue Entresto to treat dilated cardiomyopathy * Continue oral spironlactone; change to oral furosemide to control heart failure * Continue ASA * Not suitable for OAC (see under Assessment) * Monitor labs closely * Likely d/c home today with out pt f/u and lab in a week RUPAL GAMEZ Feb 09, 2022 08:41
[2022-02-09] MEDS: SENNA W/DOCUSATE (SENOKOT S) TABLET PO SCH (09:20)
[2022-02-09] MEDS: SACUBITRIL/VALSARTAN 24/26 MG (ENTRESTO) TABLET PO SCH (09:20)
[2022-02-09] MEDS: SPIRONOLACTONE 25 MG (ALDACTONE) TAB PO SCH (09:20)
[2022-02-09] MEDS: ASPIRIN 81 MG CHEW (CHILDREN'S ASA) PO SCH (09:21)
[2022-02-09] MEDS: DOCUSATE SODIUM 100 MG (COLACE) CAP PO SCH (09:21)
[2022-02-09] MEDS: FUROSEMIDE 40 MG/4 ML INJ (LASIX) IVP SCH (09:21)
[2022-02-09] MEDS: ALPRAZolam 0.25 MG (XANAX) TAB PO PRN (10:15)
[2022-02-09] MEDS ORDERED: ALPR.25T PO (11:33)
[2022-02-09] MEDS ORDERED: MIRT-47 PO (11:33)
[2022-02-09 14:20] VITALS: BP 137/75
--- NOTE | 2022-02-09 15:33 | Discharge Summary ---
Discharge Summary Hospital Course Problems/Dx: (1) Acute HFrEF (heart failure with reduced ejection fraction) Status: Acute (2) CAD (coronary artery disease) Status: Chronic (3) Afib Status: Chronic (4) HTN (hypertension) Status: Chronic (5) HLD (hyperlipidemia) Status: Chronic (6) Anxiety Status: Acute (7) Depression Status: Acute (8) Anorexia Status: Acute (9) Obesity Status: Chronic Hospital Course Date of Admission: Feb 06, 2022 at 13:19 Admission Diagnosis : Acute heart failure with reduced ejection fraction Family Physician/Provider: Sukhwinder Anderson MD Date of Discharge: 02/09/22 Discharge Diagnosis: Acute heart failure with reduced ejection fraction Hospital Course: Kenn Franco is an 81 year old male with PMH HTN, HLD, AFib, CAD, depression, anxiety, who was admitted with new onset heart failure with reduced ejection fraction. Cardiology was consulted and assisted with his care. He had an echo which showed reduced ejection fraction 35-40%. He was started on IV Lasix. He was initially requiring supplemental oxygen but this resolved prior to discharge. He was also started on Entresto and Spironolactone. His Dilitiazem dose was increased. He is unable to tolerate therapeutic anticoagulation due to GI bleeding from AVMs. He is also intolerant to beta blockers and statins. He was started on Remeron for depression and decreased appetite. He was started on Xanax for anxiety. He was discharged home in stable condition. He should follow up with his PCP and Cardiology as scheduled. Labs and Pending Lab Test: Microbiology 02/06/22 Urine Culture - Final, Complete Gram Pos Mixed Bacterial Flor Home Meds Active Xanax Tablet (Alprazolam) 0.25 Mg Tab 0.25 Mg PO Q8H PRN 7 Days Mirtazapine 15 Mg Tab.rapdis 7.5 Mg PO HS 30 Days Lasix (Furosemide) 40 Mg Tablet 40 Mg PO DAILY Spironolactone 25 Mg Tablet 25 Mg PO DAILY Entresto 24 mg-26 mg Tablet (Sacubitril/Valsartan) 24 Mg-26 Mg Tablet 1 Tab PO BID Diltiazem 24Hr ER (Diltiazem HCl) 240 Mg Cap.er.24h 240 Mg PO DAILY Reported Pantoprazole Sodium 40 Mg Tablet.dr 40 Mg PO DAILY PRN Aspirin 81 Mg Tab.chew 81 Mg PO DAILY Vitamin D3 (Cholecalciferol (Vitamin D3)) 10 Mcg Tablet 10 Mcg PO DAILY Multivitamins (Multivitamin) 1 Each Tablet 1 Each PO DAILY Assessment/Pt Instructions See instructions Discharge Planning: >30 minutes discharge planning Discharge Instructions Discharge Diet: Low Sodium Diet Discharge Physical Examination Vital Signs Vital Signs Date Time Temp Pulse Resp B/P (MAP) Pulse Ox O2 Delivery O2 Flow Rate FiO2 02/09/22 14:20 36.7 94 19 137/75 93 Room Air 2.00 Allergies: Coded Allergies: No Known Drug Allergies (Unverified , 10/22/19) Copy Copies To 1: SUKHWINDER ANDERSON MD Discharge Summary Date of Admission Feb 06, 2022 at 13:19 Date of Discharge Feb 09, 2022 at 14:15 Admission Diagnosis Acute heart failure with reduced ejection fraction Discharge Diagnosis Acute HFrEF (1) Acute HFrEF (heart failure with reduced ejection fraction) Status: Acute (2) CAD (coronary artery disease) Status: Chronic (3) Afib Status: Chronic (4) HTN (hypertension) Status: Chronic (5) HLD (hyperlipidemia) Status: Chronic (6) Anxiety Status: Acute (7) Depression Status: Acute (8) Anorexia Status: Acute (9) Obesity Status: Chronic VIV OLSEN MD Feb 09, 2022 15:31
--- NOTE | 2022-02-09 16:44 | Progress Note - Cardiology ---
Cardiology SOAP Progress Note Subjective: Shortness of breath has improved Less weak No cp or palp or syncope No n/v/d Wishes to go home Objective: I&O/Vital Signs 02/09/22 02/09/22 02/09/22 02/09/22 07:00 07:32 08:00 14:20 Temp 36.7 36.7 Pulse 109 94 94 Resp 19 19 B/P (MAP) 137/75 (95) 137/75 Pulse Ox 93 93 O2 Delivery Room Air Room Air Room Air O2 Flow Rate 2.00 02/09/22 00:00 Intake Total 2240 ml Output Total 2375 ml Balance -135 ml Weight (Pounds): 188 Weight (Ounces): 1.0 Weight (Calculated Kilograms): 85.981631 Constitutional: AAO x 3, well-developed, well-nourished Respiratory: No accessory muscle use; other (basal crackles and fine rales) Cardiovascular: irregularly irregular, S1 and S2, systolic murmur (soft CHIDI at card base) Gastrointestional: No tender; soft; No guarding, No rebound; audible bowel sounds Extremities: other (mild, bilateral leg edema); No clubbing, No cyanosis Neurologic/Psychiatric: oriented x 3, other (moves all limbs equally) Skin: No rash on exposed areas, No ulcerations on exposed areas Results/Procedures: Labs Microbiology 02/06/22 Urine Culture - Final, Complete Gram Pos Mixed Bacterial Flor Laboratory Tests 02/08/22 09:00 A/P: Assessment: 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 Smith and endoscopy in early 2020 that, he states, showed duodenitis with duodenal ulcer. OAC held, then resumed months later that led to recurrence of severe anemia that has been treated with iron replacement - He has has full GI w/u with Dr. Carlson and found to have AVM which is considered the cause of his bleeding - Considered intolerant to OAC Sinus node dysfunction, chronic atrial fibrillation - CHADSVasc score 3 - Previously on OAC with Pradaxa - considered intolerant d/t recurrent GI bleeds - he does not wish to be on OAC - he verbalizes understanding of the possible deleterious effects of not being on OAC, including increased risk of stroke Coronary artery disease: - coronary artery bypass surgery consistent of left internal mammary artery graft to left anterior descending and a saphenous vein graft to first diagonal by Dr. Larson at [facility] in July 2010. - MPI of 06/06/17: no ischemia or infarction, LVEF 55% - Echo of 06/15/17: : LVEF 60-65%, trivial AI, PASP approx 25 mmHg Carotid dz: - Minimal carotid arterial disease on carotid u/s of 06/20/17 No AAA on an AAA screening scan of 06/20/17 Hyperlipidemia. -Intolerance to statin therapy due to generalized muscle aches Medication Intolerance: - Intolerance to beta-blockers which cause depression. Colon carcinoma: - History of colectomy for colon carcinoma several years ago. History of mild chronic anxiety/depression - currently controlled Gastroesophageal reflux - documented on endoscopy of March 2012 H/o tobacco use - quit in the 1980s Plan: * Continue current does of long-acting dilt * Continue Entresto to treat dilated cardiomyopathy * Continue oral spironlactone and furosemide * Continue ASA * Not suitable for OAC (see under Assessment) * Monitor labs closely * Likely d/c home today with out pt f/u and lab in a week GITA RIZVI MD FACP FAC CCDS Feb 09, 2022 16:44
== END 2022-02-09 14:15 | disposition home or self-care (01) ==
LOC: EDUNIT# 11:06 → ER 11:07 → 4TH 13:19
PROVIDERS: ADMIT Family Medicine; ATTEND Internal Medicine
DX: I11.0 Hypertensive heart disease with heart failure (principal); I50.21 Acute systolic (congestive) heart failure; I25.10 Atherosclerotic heart disease of native coronary artery without angina pectoris; I48.20 Chronic atrial fibrillation, unspecified; E78.5 Hyperlipidemia, unspecified; F41.9 Anxiety disorder, unspecified; F32.A Depression, unspecified; E66.9 Obesity, unspecified; R63.0 Anorexia; I65.29 Occlusion and stenosis of unspecified carotid artery; T50.995A Adverse effect of other drugs, medicaments and biological substances, initial encounter; K21.9 Gastro-esophageal reflux disease without esophagitis; Z87.891 Personal history of nicotine dependence; Z85.038 Personal history of other malignant neoplasm of large intestine; Z79.899 Other long term (current) drug therapy; Z95.1 Presence of aortocoronary bypass graft; Z90.49 Acquired absence of other specified parts of digestive tract; Z79.82 Long term (current) use of aspirin; Z68.30 Body mass index [BMI] 30.0-30.9, adult
CPT/HCPCS: 36415; 71045; 71275; 74177; 80048; 80053; 81000; 83690; 83735; 83880; 84484; 85025; 87088; 93005; 93306; 94760; 96374; 96376; G0378

== ENCOUNTER → 2022-02-14 | Outpatient (CLI) | payer MEDICARE, OTHER ==
[~2022-02-14] MED LIST changes: +ALPR.25T PO; +DILT240C91 PO; +FURO-124 PO; +MIRT-47 PO; +PANT40TA52 PO; +SACU1TAB2 PO; +SPIR25TA5 PO
[2022-02-14 11:53] LABS: CALCIUM 9.1 MG/DL (8.5-10.1); CREATININE SERUM 1.09 MG/DL (0.60-1.30); MAGNESIUM 1.9 MG/DL (1.6-2.4); POTASSIUM 4.3 MMOL/L (3.6-5.0)
== END ==
LOC: LAB 11:18
PROVIDERS: ATTEND Nurse Practitioner Family
DX: I50.21 Acute systolic (congestive) heart failure (principal)
CPT/HCPCS: 36415; 80048; 83735

== ENCOUNTER → 2022-02-23 | Outpatient (CLI) | payer MEDICARE, OTHER | LOC: CARD 08:22 | PROVIDERS: ATTEND Nurse Practitioner Family | DX: I48.0 Paroxysmal atrial fibrillation (principal) | CPT/HCPCS: 93225; 93226 ==

== ENCOUNTER → 2022-06-14 | Outpatient (CLI) | payer MEDICARE, OTHER ==
[~2022-06-14] MED LIST changes: +CATHETER FLUSH 10 ML SYR IVP PRN; +HEParin (CENTRAL IV FLUSH) 500 UNIT/5 ML SYR ONE
--- NOTE | 2022-06-16 13:31 | STRESS TEST ---
DATE OF SERVICE: 06/14/2022 RADIONUCLIDE VENTRICULOGRAPHY ORDERING PHYSICIAN: Fatimah Pool APRN PRIMARY PHYSICIAN: Dr. Carlos. CLINICAL DIAGNOSIS: Ischemic dilated cardiomyopathy. Radionuclide ventriculography was carried out with the injection of autologous red blood cell tagged with 28 mCi of technetium-99m. Gated images show moderate global hypokinesis. Left ventricular ejection fraction is calculated to be 39%. CONCLUSION: Moderate cardiomyopathy with moderate global hypokinesis and with a calculated ejection fraction of 39%. Job ID: [id number] DocumentID: [id number] Dictated Date: 06/16/2022 09:20:49 Evaporator Repairer Date: 06/16/2022 13:30:01 Dictated By: GITA RIZVI MD, MA, FACP, FACC,
== END ==
LOC: CARD 09:31
PROVIDERS: ATTEND Nurse Practitioner Family
DX: I25.5 Ischemic cardiomyopathy (principal)
CPT/HCPCS: 78472; A9560

== ENCOUNTER 2022-09-16 13:11 | Outpatient (RCR) | payer MEDICARE, OTHER ==
[2022-09-09 13:20] VITALS: BP 88/54
[2022-09-09] MEDS: FERRIC CARBOXYMALTOSE INJ 750 MG in NS (IVPB) 250 ML IV SCH (14:21)
[~2022-09-16 13:11] MED LIST changes: -CATHETER FLUSH 10 ML SYR IVP PRN; -HEParin (CENTRAL IV FLUSH) 500 UNIT/5 ML SYR ONE
[2022-09-16 13:30] VITALS: BP 77/55
[2022-09-16] MEDS: FERRIC CARBOXYMALTOSE INJ 750 MG in NS (IVPB) 250 ML IV SCH (13:42)
== END 2022-09-16 14:00 | disposition home or self-care (01) ==
LOC: SDC 13:11
PROVIDERS: ATTEND Internal Medicine
DX: Z51.81 Encounter for therapeutic drug level monitoring (principal)
CPT/HCPCS: 96365

== ENCOUNTER → 2023-04-18 | Outpatient (CLI) | payer MEDICARE, OTHER ==
[~2023-04-18] MED LIST changes: +CATHETER FLUSH 10 ML SYR IVP PRN; +REGADENOSON 0.4 MG/5 ML SYR (LEXISCAN) IV ONE
[2023-04-18 13:12] VITALS: BP 110/63
--- NOTE | 2023-04-18 20:03 | STRESS TEST ---
DATE OF SERVICE: 04/18/2023 RESTING AND POST REGADENOSON TECHNETIUM-99M TETROFOSMIN SPECT CT IMAGING ORDERING PHYSICIAN: Dr. Armendariz. PRIMARY PHYSICIAN: Dr. Carlos. CLINICAL DIAGNOSIS: Coronary artery disease. Baseline images were carried out after injection of 10.78 mCi of technetium-99m tetrofosmin. This was followed by 0.4 mg regadenoson and 31.2 mCi of technetium-99m tetrofosmin for stress imaging. The electrocardiogram showed atrial fibrillation with left bundle branch block throughout the study. The electrocardiogram did not change significantly with the regadenoson infusion. The patient tolerated the procedure well. Review of images at rest and following stress indicates a patchy tracer uptake without any distinct evidence of myocardial ischemia or infarction. There is global hypokinesis of the left ventricle. Left ventricular ejection fraction is calculated to be 30%. Left ventricular end-diastolic volume is 151 mL. TID is absent (1.06). CONCLUSIONS: Moderate to severe cardiomegaly with global hypokinesis of the left ventricle and a calculated ejection fraction 30%. No evidence of significant myocardial ischemia or infarction on this study. Job ID: [id number] DocumentID: [id number] Dictated Date: 04/18/2023 17:23:30 Clinical Applications Manager Date: 04/18/2023 20:03:00 Dictated By: IGTA ARMENDARIZ MD; MARIUSZ; FACP; FACC; BELLE
== END ==
LOC: CARD 11:37
PROVIDERS: ATTEND Internal Medicine Cardiovascular Disease
DX: I25.10 Atherosclerotic heart disease of native coronary artery without angina pectoris (principal)
CPT/HCPCS: 78452; 93017; A9502

== ENCOUNTER 2023-07-12 13:36 | Inpatient (IN) | payer MEDICARE, OTHER ==
[~2023-07-12] VITALS: Ht 172 cm; Wt 70.8 kg
[~2023-07-12 13:36] MED LIST changes: -CATHETER FLUSH 10 ML SYR IVP PRN; -REGADENOSON 0.4 MG/5 ML SYR (LEXISCAN) IV ONE
[2023-07-12] MEDS ORDERED: NS IV 500 ML 500 ML IV STA (13:57)
--- NOTE | 2023-07-12 14:05 | ED General ---
General Chief Complaint: General Problems/Pain Stated Complaint: ABD PAIN | COUGH Nursing Triage Note: PT PRESENTS TO ED VIA POV FROM HOME WITH COMPLAINTS OF R GROIN PAIN. PT REPORTS ITS BEEN GOING ON FOR A "WHILE" PT FAMILY REPORTS PT HAS BEEN HAVING COUGH, CHILLS, SOB WITH POSITION CHANGES, GENERAL DECLINE IN MOBILITY, CONFUSION X 2-3 WEEKS. Source of Information: Patient, Family Exam Limitations: No Limitations History of Present Illness Date Seen by Provider: Jul 12, 2023 Time Seen by Provider: 13:40 Initial Comments 82-year-old male with past medical history of chronic A-fib on diltiazem s/p Watchmen, HTN, HLD, CAD, depression, anxiety coming in with his granddaughter due to altered mental status, abdominal pain, and shortness of breath. Patient states this is been going on for "a while". Patient's family reports he has had a cough, chills, mildly short of breath, and has had diarrhea for the past few days. He is also had a general decline in mobility, used to ambulate without difficulty, now was in a wheelchair with his granddaughter. Denies any vomiting, chest pain, rash, or any other concerns. Allergies and Home Medications Allergies Coded Allergies: No Known Drug Allergies (Unverified , 10/22/19) Patient Home Medication List Home Medication List Reviewed: Yes ALPRAZolam (Xanax Tablet) 0.25 Mg Tab, 0.25 MG PO Q8H PRN for ANXIETY Prescribed by: VIV OLSEN on 02/09/22 1134 Aspirin (Aspirin) 81 Mg Tab.chew, 81 MG PO DAILY, (Reported) Entered as Reported by: LUKE SIMPSON on 08/11/20 1328 Cholecalciferol (Vitamin D3) (Vitamin D3) 10 Mcg Tablet, 10 MCG PO DAILY, (Reported) Entered as Reported by: LUKE SIMPSON on 08/11/20 1328 Diltiazem HCl (Diltiazem 24Hr ER) 240 Mg Cap.er.24h, 240 MG PO DAILY Prescribed by: RUPAL GAMEZ on 02/09/22 0824 Furosemide (Lasix) 40 Mg Tablet, 40 MG PO DAILY Prescribed by: RUPAL GAMEZ on 02/09/22 0824 Mirtazapine (Mirtazapine) 15 Mg Tab.rapdis, 7.5 MG PO HS Prescribed by: VIV OLSEN on 02/09/22 1133 Multivitamin (Multivitamins) 1 Each Tablet, 1 EACH PO DAILY, (Reported) Entered as Reported by: LUKE SIMPSON on 08/08/17 0956 Pantoprazole Sodium (Pantoprazole Sodium) 40 Mg Tablet.dr, 40 MG PO DAILY PRN for GERD, (Reported) Entered as Reported by: TORREY SHETTY on 02/07/22 1426 Sacubitril/Valsartan (Entresto 24 mg-26 mg Tablet) 24 Mg-26 Mg Tablet, 1 TAB PO BID Prescribed by: RUPAL GAMEZ on 02/09/22 0824 Spironolactone (Spironolactone) 25 Mg Tablet, 25 MG PO DAILY Prescribed by: RUPAL GAMEZ on 02/09/22 0824 Review of Systems Review of Systems Constitutional: chills, malaise, weakness EENTM: no symptoms reported Respiratory: cough, short of breath Cardiovascular: No chest pain Gastrointestinal: abdominal pain, diarrhea Musculoskeletal: no symptoms reported Skin: no symptoms reported Psychiatric/Neurological: No Symptoms Reported Hematologic/Lymphatic: No Symptoms Reported Immunological/Allergic: no symptoms reported All Other Systems Reviewed Negative Unless Noted: Yes Past Yhljdlr-Mcgibe-Qxbdqw Hx Patient Social History Tobacco Use?: No Substance use?: No Alcohol Use?: No Pt feels they are or have been: No Immunizations Up To Date Tetanus Booster (TDap): Unknown First/Initial COVID19 Vaccinat: DOES NOT HAVE CARD, HAS HAD 4 VACCINES Second COVID19 Vaccination Pablo: DOES NOT HAVE CARD, HAS HAD 4 VACCINES Third COVID19 Vaccination Date: DOES NOT HAVE CARD, HAS HAD 4 VACCINES Seasonal Allergies Seasonal Allergies: Yes Past Medical History Surgery/Hospitalization HX: COLON CA, CABG, KIMBERLY, HERNIA REPAIR, R HIP REPLACEMENT Surgeries: Yes (INCISIONAL HERNIA REPAIR, COLON RESECTION, R THR) Appendectomy, CABG, Gallbladder Respiratory: No Currently Using CPAP: No Currently Using BIPAP: No Cardiac: Yes ( HX CABG) Atrial Fibrillation, Deep Vein Thrombosis, Hypertension Neurological: No Reproductive Disorders: No Sexually Transmitted Disease: No HIV/AIDS: No Genitourinary: No Gastrointestinal: Yes (hx of colon ca) Chronic Constipation, Polyps Musculoskeletal: No Endocrine: No HEENT: Yes (GLASSES) Loss of Vision: Bilateral Hearing Impairment: Denies Cancer: Yes Colon Did You Recieve Any Treatments: Yes What Type of Treatment Did You: Surgical Intervention Psychosocial: Yes Depression Integumentary: No Blood Disorders: Yes (ANEMIA) Adverse Reaction/Blood Tranf: No (N/A) Family Medical History Psychiatric Problems Physical Exam Vital Signs Vital Signs - First Documented 07/12/23 13:41 Temp 36.4 Pulse 123 Resp 14 B/P (MAP) 94/75 (81) Pulse Ox 96 Capillary Refill : Less Than 3 Seconds Height, Weight, BMI Height: 5'7.00" Weight: 188lbs. 1.0oz. 85.593159ao; 21.00 BMI Method: General Appearance: No Apparent Distress, WD/WN Eyes: Bilateral Eye Normal Inspection, Bilateral Eye EOMI HEENT: PERRL/EOMI, Normal ENT Inspection, Pharynx Normal Neck: Full Range of Motion, Normal Inspection, Non Tender, Supple Respiratory: Chest Non Tender, Lungs Clear, Normal Breath Sounds, No Accessory Muscle Use, No Respiratory Distress Cardiovascular: Normal Peripheral Pulses, Irregularly Irregular, Tachycardia Gastrointestinal: Normal Bowel Sounds, Soft, Hernia, Tenderness (RLQ) Back: Normal Inspection, No CVA Tenderness Extremity: Normal Capillary Refill, Normal Inspection, Normal Range of Motion, Non Tender, No Calf Tenderness, No Pedal Edema Neurologic/Psychiatric: Alert, No Motor/Sensory Deficits, Normal Mood/Affect, Disoriented (oriented to person only) Skin: Normal Color, Warm/Dry Focused Exam Lactate Level 07/12/23 14:00: Lactic Acid Level 1.40 Lactic Acid Level Laboratory Tests Test 07/12/23 14:00 Lactic Acid Level 1.40 MMOL/L (0.50-2.00) Progress/Results/Core Measures Suspected Sepsis SIRS Temperature: Pulse: 123 Respiratory Rate: 14 Laboratory Tests 07/12/23 13:45: White Blood Count 10.2 Blood Pressure 94 /75 Mean: 81 07/12/23 14:00: Lactic Acid Level 1.40 Laboratory Tests 07/12/23 13:45: Creatinine 1.86H, INR Comment 1.2, Platelet Count 240, Total Bilirubin 0.5 Results/Orders Lab Results Laboratory Tests Test 07/12/23 13:45 07/12/23 14:00 07/12/23 14:19 07/12/23 15:30 Range/Units White Blood Count 10.2 4.3-11.0 10^3/uL Red Blood Count 4.48 4.30-5.52 10^6/uL Hemoglobin 12.0 L 13.3-17.7 g/dL Hematocrit 38 L 40-54 % Mean Corpuscular Volume 84 80-99 fL Mean Corpuscular Hemoglobin 27 25-34 pg Mean Corpuscular Hemoglobin Concent 32 32-36 g/dL Red Cell Distribution Width 16.5 H 10.0-14.5 % Platelet Count 240 130-400 10^3/uL Mean Platelet Volume 10.5 9.0-12.2 fL Immature Granulocyte % (Auto) 1 % Neutrophils (%) (Auto) 81 H 42-75 % Lymphocytes (%) (Auto) 10 L 12-44 % Monocytes (%) (Auto) 7 0-12 % Eosinophils (%) (Auto) 1 0-10 % Basophils (%) (Auto) 0 0-10 % Neutrophils # (Auto) 8.3 H 1.8-7.8 10^3/uL Lymphocytes # (Auto) 1.0 1.0-4.0 10^3/uL Monocytes # (Auto) 0.7 0.0-1.0 10^3/uL Eosinophils # (Auto) 0.1 0.0-0.3 10^3/uL Basophils # (Auto) 0.0 0.0-0.1 10^3/uL Immature Granulocyte # (Auto) 0.1 0.0-0.1 10^3/uL Prothrombin Time 15.7 H 12.2-14.7 SEC INR Comment 1.2 0.8-1.4 Activated Partial Thromboplast Time 29 24-35 SEC Sodium Level 136 135-145 MMOL/L Potassium Level 3.9 3.6-5.0 MMOL/L Chloride Level 104 98-107 MMOL/L Carbon Dioxide Level 19 L 21-32 MMOL/L Anion Gap 13 5-14 MMOL/L Blood Urea Nitrogen 54 H 7-18 MG/DL Creatinine 1.86 H 0.60-1.30 MG/DL Estimat Glomerular Filtration Rate 35 BUN/Creatinine Ratio 29 Glucose Level 128 H 70-105 MG/DL Calcium Level 9.6 8.5-10.1 MG/DL Corrected Calcium 9.8 8.5-10.1 MG/DL Magnesium Level 2.2 1.6-2.4 MG/DL Total Bilirubin 0.5 0.1-1.0 MG/DL Aspartate Amino Transf (AST/SGOT) 20 5-34 U/L Alanine Aminotransferase (ALT/SGPT) 27 0-55 U/L Alkaline Phosphatase 146 H 40-136 U/L Troponin I 0.037 H <0.028 NG/ML C-Reactive Protein High Sensitivity 6.82 H 0.00-0.50 MG/DL B-Type Natriuretic Peptide 363.4 H <100.0 PG/ML Total Protein 7.3 6.4-8.2 GM/DL Albumin 3.8 3.2-4.5 GM/DL Lipase 21 8-78 U/L Lactic Acid Level 1.40 0.50-2.00 MMOL/L Influenza Type A (RT-PCR) Not Detected Not Detecte Influenza Type B (RT-PCR) Not Detected Not Detecte SARS-CoV-2 RNA (RT-PCR) Not Detected Not Detecte Urine Color YELLOW Urine Clarity CLEAR Urine pH 5.0 5-9 Urine Specific [place] 1.015 L 1.016-1.022 Urine Protein NEGATIVE NEGATIVE Urine Glucose (UA) TRACE H NEGATIVE Urine Ketones NEGATIVE NEGATIVE Urine Nitrite NEGATIVE NEGATIVE Urine Bilirubin NEGATIVE NEGATIVE Urine Urobilinogen 0.2 < = 1.0 MG/DL Urine Leukocyte Esterase NEGATIVE NEGATIVE Urine RBC (Auto) TRACE H NEGATIVE Urine RBC NONE /HPF Urine WBC NONE /HPF Urine Crystals PRESENT H /LPF Urine Amorphous Sediment FEW MARISOL URATES H /LPF Urine Bacteria NEGATIVE /HPF Urine Casts PRESENT /LPF Urine Hyaline Casts 10-25 H /LPF Urine Mucus SMALL H /LPF Urine Culture Indicated NO My Orders Orders - KAITLIN MANE MD Ekg Tracing (07/12/23 13:47) Ct Head Wo (07/12/23 13:57) Ed Iv/Invasive Line Start (07/12/23 13:57) Bnp [place] (07/12/23 13:57) Cbc And Automated Diff (07/12/23 13:57) Comprehensive Metabolic Panel (07/12/23 13:57) Hs C Reactive Protein (07/12/23 13:57) Lactic Acid Analyzer (07/12/23 13:57) Lipase (07/12/23 13:57) Magnesium (07/12/23 13:57) Protime With Inr (07/12/23 13:57) Partial Thromboplastin Time (07/12/23 13:57) Troponin I Jarad (07/12/23 13:57) Ua Culture If Indicated (07/12/23 13:57) Influenza A And B By Pcr (07/12/23 13:57) Ekg Tracing (07/12/23 13:57) Monitor-Rhythm Ecg Trace Only (07/12/23 13:57) Covid 19 Inhouse Test (07/12/23 13:57) Ct Abdomen/Pelvis W (07/12/23 13:57) Ns Iv 500 Ml (Ns Iv 500 Ml) (07/12/23 13:57) Chest 1 View, Ap/Pa Only (07/12/23 14:19) Iohexol Injection (Omnipaque 350 Mg/Ml 1 (07/12/23 14:45) Received Contrast (Hold Metformin- Contr (07/12/23 14:45) Ns (Ivpb) 100 Ml (Sodium Chloride 0.9% 1 (07/12/23 14:45) Medications Given in ED Current Medications Medications Dose Ordered Sig/Dolores Route Start Time Stop Time Status Last Admin Dose Admin Iohexol 50 ml ONCE ONCE IV 07/12/23 14:45 07/12/23 14:46 DC 07/12/23 14:50 50 ML Sodium Chloride 100 ml ONCE ONCE IV 07/12/23 14:45 07/12/23 14:46 DC 07/12/23 14:50 80 ML Vital Signs/I&O 07/12/23 13:41 Temp 36.4 Pulse 123 Resp 14 B/P (MAP) 94/75 (81) Pulse Ox 96 Capillary Refill : Less Than 3 Seconds Blood Pressure Mean: 81 Progress Note : Progress Note 82-year-old male with above history coming in confused, complaining mostly of lower abdominal pain and mild dyspnea. The patient was tachycardic in A-fib with RVR on arrival with a low blood pressure. The lowest his systolic was around the 70s. Unfortunately he does have a history of congestive heart failure with reduced ejection fraction making it difficult to treat. An IV was placed and he was given 500 cc of IV fluids. Blood pressure improved as heart rate improved as well. At this time he is not requiring any type of diltiazem drip. CT head ordered and interpreted by me show no obvious bleed or mass. CT abdomen pelvis also ordered and was essentially negative. There read his common bile duct could be slightly dilated, his LFTs are normal, he has no right upper quadrant pain, and I do not think this is clinically relevant at this time. His creatinine is elevated greater than 1.8 with a mild COLLINS for him, troponin slightly elevated with a type II NSTEMI, hemoglobin around his baseline. EKG ordered and interpreted by me showing no STEMI. I contacted Dr. Armendariz who will follow along the patient and recommends discontinuing most of his home medications. I then contacted Dr. Olsen who will admit the patient to the intensive care unit under inpatient status for further evaluation and management. I then contacted the ICU physician for signout. ECG Initial ECG Impression Date: Jul 12, 2023 Initial ECG Impression Time: 13:48 Initial ECG Rate: 123 Initial ECG Rhythm: A Fib/Flutter Comment A-fib with RVR, wide QRS with a left bundle branch block, no STEMI Diagnostic Imaging Diagonstic Imaging: Xray (chest), CT (head and abd/pelvis) Comments [facility] [place], [place] NAME: JAVON ARDON [facility] REC#: [id number] PT STATUS: REG ER : 1940 PHYSICIAN: KAITLIN MANE MD ADMIT DATE: 07/12/23/ER Draft Date of Exam:07/12/23 CT HEAD WO PROCEDURE: CT head without contrast. TECHNIQUE: Multiple contiguous axial images were obtained through the brain without the use of intravenous contrast. Auto Exposure Controls were utilized during the CT exam to meet ALARA standards for radiation dose reduction. INDICATION: Altered mental status. Decline in mobility. COMPARISON: None. FINDINGS: Moderate to severe generalized volume loss. No intracranial hemorrhage, mass effect, hydrocephalus or extra-axial fluid collections. No CT evidence of a territorial infarction. Osseous structures are intact. The mastoids are clear. Postoperative changes in the paranasal sinuses. IMPRESSION: No acute intracranial CT findings. Moderate to severe generalized volume loss is age appropriate. Dictated on workstation # [id number] Dict: 07/12/23 1453 Trans: 07/12/23 1501 CVB [id number] Interpreted by: CA COX MD Electronically signed by: [facility] [place], [place] NAME: JAVON ARDON [facility] REC#: [id number] PT STATUS: REG ER : 1940 PHYSICIAN: KAITLIN AMNE MD ADMIT DATE: 07/12/23/ER Draft Date of Exam:07/12/23 CHEST 1 VIEW, AP/PA ONLY INDICATION: Hypotension, altered mental status. TECHNIQUE: Frontal chest obtained at 2:33 PM and compared to 02/06/2022. FINDINGS: There is cardiomegaly and post sternotomy change. There is no focal infiltrate, pneumothorax, or pleural fluid. IMPRESSION: Cardiomegaly with no acute process in the chest. Dictated on workstation # [id number] Dict: 07/12/23 1502 Trans: 07/12/[address] [place] [address] [id number] Interpreted by: CARISSA FAY MD Electronically signed by: NAME: JAVON ARDON [facility] REC#: [id number] PT STATUS: REG ER : 1940 PHYSICIAN: KAITLIN MANE MD ADMIT DATE: 07/12/23/ER Draft Date of Exam:07/12/23 CT ABDOMEN/PELVIS W CT ABDOMEN/PELVIS W TECHNIQUE: Multiple contiguous axial images were obtained through the abdomen and pelvis after administration of intravenous contrast. All CT scans use one or more of the following dose optimizing techniques: automated exposure control, MA and/or KvP adjustment based on patient size and exam type or iterative reconstruction. INDICATION: Right lower quadrant pain COMPARISON: 02/06/2022 FINDINGS: Lower chest: The lung bases are clear. No pericardial or pleural effusion. Peritoneum: No free intraperitoneal air or fluid. Liver and biliary system: A few cysts within liver are stable. No suspicious hepatic lesion has developed. Cholecystectomy. There is potential dilation of the common bile duct, although respiratory motion artifact limits this region. Spleen and Pancreas: Spleen is normal. Mild fatty infiltration of the pancreas. No features of acute pancreatitis. Adrenals: Normal. tract: Numerous bilateral renal cysts are unchanged. No solid renal mass or obstructive uropathy. Urinary bladder is normal. Prostate is not enlarged. GI tract: Moderate size sliding-type hiatal hernia is unchanged. No bowel obstruction. No pericolonic inflammatory changes. Stable postoperative changes of partial colectomy with anastomosis in the rectosigmoid region. Vasculature and Lymph nodes: Normal caliber aorta. 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 No aortic dissection. No abdominal or pelvic lymphadenopathy. Musculoskeletal: No concerning osseous lesion. IMPRESSION: 1. There is potential dilation of common bile duct which is a change from prior examination. Correlation for right upper quadrant pain and with serum bilirubin levels is suggested. 2. Otherwise, no acute obstructive or inflammatory process. 3. Unchanged size of left common iliac artery aneurysm measuring 3.5 cm. Dictated on workstation # [id number] Dict: 07/12/23 1503 Trans: 07/12/23 1510 CVB [id number] Interpreted by: NICANOR GONZALEZ MD Electronically signed by: Critical Care Note Critical Care Start Time: 13:40 Stop Time: 14:55 Total Time (minutes) 42 Progress Patient was hypotensive and required immediate intervention. He also has significant risk for other hemodynamic instability afterwards and required frequent reassessment. Departure Impression Primary Impression: Atrial fibrillation with RVR Additional Impressions: NSTEMI (non-ST elevated myocardial infarction) Diarrhea Qualified Codes: R19.7 - Diarrhea, unspecified Disposition: ADMITTED INPATIENT Condition: Stable Admissions Decision to Admit Reason: Admit from ER (General) Decision to Admit/Date: Jul 12, 2023 Time/Decision to Admit Time: 15:15 Departure-Patient Inst. Referrals: SUKHWINDER ANDERSON MD (PCP/Family) Primary Care Physician KAITLIN MANE MD Jul 12, 2023 14:05
[2023-07-12 14:06] LABS: BASOPHILS % (AUTO) 0 % (0-10); EOSINOPHILS # (AUTO) 0.1 10^3/uL (0.0-0.3); EOSINOPHILS % (AUTO) 1 % (0-10); HEMATOCRIT 38 % (40-54); LYMPHOCYTES % (AUTO) 10 % (12-44); MEAN CORPUSCULAR HEMOGLOBIN 27 pg (25-34); MEAN CORPUSCULAR HGB CONC 32 g/dL (32-36); MEAN CORPUSCULAR VOLUME 84 fL (80-99); MEAN PLATELET VOLUME 10.5 fL (9.0-12.2); MONOCYTES # (AUTO) 0.7 10^3/uL (0.0-1.0); MONOCYTES % (AUTO) 7 % (0-12); NEUTROPHILS # (AUTO) 8.3 10^3/uL (1.8-7.8); NEUTROPHILS % (AUTO) 81 % (42-75); PLATELET COUNT 240 10^3/uL (130-400); WHITE BLOOD COUNT 10.2 10^3/uL (4.3-11.0)
[2023-07-12 14:07] LABS: ALBUMIN 3.8 GM/DL (3.2-4.5); POTASSIUM 3.9 MMOL/L (3.6-5.0)
[2023-07-12 14:09] LABS: CALCIUM 9.6 MG/DL (8.5-10.1)
[2023-07-12 14:10] LABS: INR 1.2 (0.8-1.4); PROTHROMBIN TIME PATIENT 15.7 SEC (12.2-14.7); TOTAL PROTEIN 7.3 GM/DL (6.4-8.2)
[2023-07-12 14:12] LABS: BILIRUBIN,TOTAL 0.5 MG/DL (0.1-1.0)
[2023-07-12 14:13] LABS: CREATININE SERUM 1.86 MG/DL (0.60-1.30)
[2023-07-12 14:16] LABS: MAGNESIUM 2.2 MG/DL (1.6-2.4)
[2023-07-12] MEDS ORDERED: IOHEXOL 350 MG/ML 100 ML (OMNIPAQUE 350) VIAL IV ONE (14:45)
[2023-07-12] MEDS ORDERED: HOLD METFORMIN - RECEIVED CONTRAST 20 ML VIAL IV SCH (14:45)
[2023-07-12] MEDS ORDERED: NS 100 ML (IVPB) BAG IV ONE (14:45)
--- NOTE | 2023-07-12 15:02 | Diagnostic Imaging Report ---
PROCEDURE: CT head without contrast. TECHNIQUE: Multiple contiguous axial images were obtained through the brain without the use of intravenous contrast. Auto Exposure Controls were utilized during the CT exam to meet ALARA standards for radiation dose reduction. INDICATION: Altered mental status. Decline in mobility. COMPARISON: None. FINDINGS: Moderate to severe generalized volume loss. No intracranial hemorrhage, mass effect, hydrocephalus or extra-axial fluid collections. No CT evidence of a territorial infarction. Osseous structures are intact. The mastoids are clear. Postoperative changes in the paranasal sinuses. IMPRESSION: No acute intracranial CT findings. Moderate to severe generalized volume loss is age appropriate. Dictated by: Dictated on workstation # [id number]
--- NOTE | 2023-07-12 15:07 | Diagnostic Imaging Report ---
INDICATION: Hypotension, altered mental status. TECHNIQUE: Frontal chest obtained at 2:33 PM and compared to 02/06/2022. FINDINGS: There is cardiomegaly and post sternotomy change. There is no focal infiltrate, pneumothorax, or pleural fluid. IMPRESSION: Cardiomegaly with no acute process in the chest. Dictated by: Dictated on workstation # [id number]
--- NOTE | 2023-07-12 15:11 | Diagnostic Imaging Report ---
CT ABDOMEN/PELVIS W TECHNIQUE: Multiple contiguous axial images were obtained through the abdomen and pelvis after administration of intravenous contrast. All CT scans use one or more of the following dose optimizing techniques: automated exposure control, MA and/or KvP adjustment based on patient size and exam type or iterative reconstruction. INDICATION: Right lower quadrant pain COMPARISON: 02/06/2022 FINDINGS: Lower chest: The lung bases are clear. No pericardial or pleural effusion. Peritoneum: No free intraperitoneal air or fluid. Liver and biliary system: A few cysts within liver are stable. No suspicious hepatic lesion has developed. Cholecystectomy. There is potential dilation of the common bile duct, although respiratory motion artifact limits this region. Spleen and Pancreas: Spleen is normal. Mild fatty infiltration of the pancreas. No features of acute pancreatitis. Adrenals: Normal. tract: Numerous bilateral renal cysts are unchanged. No solid renal mass or obstructive uropathy. Urinary bladder is normal. Prostate is not enlarged. GI tract: Moderate size sliding-type hiatal hernia is unchanged. No bowel obstruction. No pericolonic inflammatory changes. Stable postoperative changes of partial colectomy with anastomosis in the rectosigmoid region. Vasculature and Lymph nodes: Normal caliber aorta. 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 No aortic dissection. No abdominal or pelvic lymphadenopathy. Musculoskeletal: No concerning osseous lesion. IMPRESSION: 1. There is potential dilation of common bile duct which is a change from prior examination. Correlation for right upper quadrant pain and with serum bilirubin levels is suggested. 2. Otherwise, no acute obstructive or inflammatory process. 3. Unchanged size of left common iliac artery aneurysm measuring 3.5 cm. Dictated by: Dictated on workstation # [id number]
[2023-07-12 15:41] LABS: BILIRUBIN,URINE NEGATIVE (NEGATIVE); CLARITY,URINE CLEAR; COLOR,URINE YELLOW; GLUCOSE, URINE (UA) TRACE (NEGATIVE); KETONES,URINE NEGATIVE (NEGATIVE); LEUKOCYTE ESTERASE ,URINE NEGATIVE (NEGATIVE); NITRITE,URINE NEGATIVE (NEGATIVE); PROTEIN,URINE NEGATIVE (NEGATIVE)
[2023-07-12 15:43] LABS: AMORPHOUS SEDIMENT,UR FEW AMOR URATES /LPF; BACTERIA,URINE NEGATIVE /HPF
--- NOTE | 2023-07-12 16:01 | Consultation-Cardiology ---
HPI-Cardiology Cardiology Consultation: Date of Consultation 07/12/23 Time Seen by a Provider: 16:40 Date of Admission 07-12-23 Attending Physician Jared Carlos MD Admitting Physician Admitting Physician: Attending Physician: Consulting Physician Ariadne Armendariz MD HPI: Chief Complaint: A-fib with RVR Mr. Franco is an 82 yr old male admitted to ICU 5 from the ED. He reports increasing gen weakness over the course of the last few weeks. He reports right groin pain which has been present for years, but he feels the discomfort has been worse recently. No c/o CP. He reports mild to mod MOSCOSO with occ palpitations with exertion. He denies any syncope or near syncope. No c/o LE swelling. No c/o n/v. He reports he has had diarrhea and poor appetite recently. Review of Systems-Cardiology Review of Systems Constitutional: No chills, No fever; malaise Eyes: No vision change Ears/Nose/Throat: No epistaxis, No recent hearing loss Respiratory: As described under HPI Cardiovascular: As described under HPI Gastrointestinal: As described under HPI Genitourinary: No dysuria, No hematuria Musculoskeletal: no symptoms reported Skin: No rash on exposed areas, No ulcerations on exposed areas Psychiatric/Neurological: No anxiety, No depression, No seizure, No focal weakness, No syncope Hematologic: No bleeding abnormalities All Other Systems Reviewed Negative Unless Noted: Yes [id number] Hx Patient Social History Former smoker/When Quit: Jun 24, 1980 2nd Hand Smoke Exposure: No Alcohol Use?: No Pt feels they are or have been: No Immunizations Up To Date Tetanus Booster (TDap): Unknown Date of Pneumonia Vaccine: Jun 12, 2017 Date of Influenza Vaccine: Jun 10, 2020 Past Medical History PMH As described under Assessment. Family Medical History Family Medical History: No fam h/o early CAD Allergies and Home Medications Allergies Coded Allergies: No Known Drug Allergies (Unverified , 10/22/19) Patient Home Medication List ALPRAZolam (Xanax Tablet) 0.25 Mg Tab, 0.25 MG PO Q8H PRN for ANXIETY Prescribed by: VIV OLSEN on 02/09/22 1134 Aspirin (Aspirin) 81 Mg Tab.chew, 81 MG PO DAILY, (Reported) Entered as Reported by: LUKE SIMPSON on 08/11/20 1328 Cholecalciferol (Vitamin D3) (Vitamin D3) 10 Mcg Tablet, 10 MCG PO DAILY, (Reported) Entered as Reported by: LUKE SIMPSON on 08/11/20 1328 Diltiazem HCl (Diltiazem 24Hr ER) 240 Mg Cap.er.24h, 240 MG PO DAILY Prescribed by: RUPAL GAMEZ on 02/09/22 08 Furosemide (Lasix) 40 Mg Tablet, 40 MG PO DAILY Prescribed by: RUPAL GAMEZ on 02/09/22 08 Mirtazapine (Mirtazapine) 15 Mg Tab.rapdis, 7.5 MG PO HS Prescribed by: VIV OLSEN on 02/09/22 1133 Multivitamin (Multivitamins) 1 Each Tablet, 1 EACH PO DAILY, (Reported) Entered as Reported by: LUKE SIMPSON on 08/08/17 0956 Pantoprazole Sodium (Pantoprazole Sodium) 40 Mg Tablet.dr, 40 MG PO DAILY PRN for GERD, (Reported) Entered as Reported by: TORREY SHETTY on 02/07/22 1426 Sacubitril/Valsartan (Entresto 24 mg-26 mg Tablet) 24 Mg-26 Mg Tablet, 1 TAB PO BID Prescribed by: RUPAL GAMEZ on 02/09/22823 Spironolactone (Spironolactone) 25 Mg Tablet, 25 MG PO DAILY Prescribed by: RUPAL GAMEZ on 02/09/22823 Physical Exam-Cardiology Physical Exam Vital Signs/I&O 07/12/23 07/12/23 13:41 16:20 Temp 36.4 Pulse 123 93 Resp 14 18 B/P (MAP) 94/75 (81) 91/57 Pulse Ox 96 92 Capillary Refill : Less Than 3 Seconds Constitutional: AAO x 3, well-developed, well-nourished HEENT: PERRL, hearing is well preserved, oral hygience is good Neck: No carotid bruit; carotid pulses are 2 + bilaterally Respiratory: No accessory muscle use, No respiratory distress; chest expansion is symmetric, chest is bilaterally symmetric, lungs clear to auscultation Cardiovascular: irregularly irregular; No JVD; S1 and S2, systolic murmur Gastrointestinal: No tender; soft, other (RUQ/groin tenderness) Extremities: no lower extremity edema bilateral Neurologic/Psychiatric: other (moves all extremities) Skin: No rash on exposed areas, No ulcerations on exposed areas Data Review Labs Laboratory Tests 07/12/23 13:45: White Blood Count 10.2, Red Blood Count 4.48, Hemoglobin 12.0L, Hematocrit 38L, Mean Corpuscular Volume 84, Mean Corpuscular Hemoglobin 27, Mean Corpuscular Hemoglobin Concent 32, Red Cell Distribution Width 16.5H, Platelet Count 240, Mean Platelet Volume 10.5, Immature Granulocyte % (Auto) 1, Neutrophils (%) (Auto) 81H, Lymphocytes (%) (Auto) 10L, Monocytes (%) (Auto) 7, Eosinophils (%) (Auto) 1, Basophils (%) (Auto) 0, Neutrophils # (Auto) 8.3H, Lymphocytes # (Auto) 1.0, Monocytes # (Auto) 0.7, Eosinophils # (Auto) 0.1, Basophils # (Auto) 0.0, Immature Granulocyte # (Auto) 0.1, Prothrombin Time 15.7H, INR Comment 1.2, Activated Partial Thromboplast Time 29, Sodium Level 136, Potassium Level 3.9, Chloride Level 104, Carbon Dioxide Level 19L, Anion Gap 13, Blood Urea Nitrogen 54H, Creatinine 1.86H, Estimat Glomerular Filtration Rate 35, BUN/Creatinine Ratio 29, Glucose Level 128H, Calcium Level 9.6, Corrected Calcium 9.8, Magnesium Level 2.2, Total Bilirubin 0.5, Aspartate Amino Transf (AST/SGOT) 20, Alanine Aminotransferase (ALT/SGPT) 27, Alkaline Phosphatase 146H, Troponin I 0.037H, C-Reactive Protein High Sensitivity 6.82H, B-Type Natriuretic Peptide 363.4H, Total Protein 7.3, Albumin 3.8, Lipase 21 07/12/23 14:00: Lactic Acid Level 1.40 07/12/23 14:19: Influenza Type A (RT-PCR) Not Detected, Influenza Type B (RT-PCR) Not Detected, SARS-CoV-2 RNA (RT-PCR) Not Detected 07/12/23 15:30: Urine Color YELLOW, Urine Clarity CLEAR, Urine pH 5.0, Urine Specific [place] 1.015L, Urine Protein NEGATIVE, Urine Glucose (UA) TRACEH, Urine Ketones NEGATIVE, Urine Nitrite NEGATIVE, Urine Bilirubin NEGATIVE, Urine Urobilinogen 0.2, Urine Leukocyte Esterase NEGATIVE, Urine RBC (Auto) TRACEH, Urine RBC NONE, Urine WBC NONE, Urine Crystals PRESENTH, Urine Amorphous Sediment FEW MARISOL URATESH, Urine Bacteria NEGATIVE, Urine Casts PRESENT, Urine Hyaline Casts 10- 25H, Urine Mucus SMALLH, Urine Culture Indicated NO Radiology NAME: JAVON FRANCO [facility] REC#: [id number] PT STATUS: REG ER : 1940 PHYSICIAN: KAITLIN MANE MD ADMIT DATE: 07/12/23/ER Draft Date of Exam:07/12/23 CT HEAD WO PROCEDURE: CT head without contrast. TECHNIQUE: Multiple contiguous axial images were obtained through the brain without the use of intravenous contrast. Auto Exposure Controls were utilized during the CT exam to meet ALARA standards for radiation dose reduction. INDICATION: Altered mental status. Decline in mobility. COMPARISON: None. FINDINGS: Moderate to severe generalized volume loss. No intracranial hemorrhage, mass effect, hydrocephalus or extra-axial fluid collections. No CT evidence of a territorial infarction. Osseous structures are intact. The mastoids are clear. Postoperative changes in the paranasal sinuses. IMPRESSION: No acute intracranial CT findings. Moderate to severe generalized volume loss is age appropriate. Dictated on workstation # [id number] Dict: 07/12/23 1453 Trans: 07/12/23 1501 CVB [id number] Interpreted by: CA COX MD Electronically signed by: ECG Impression ECG Initial ECG Impression: Atrial Fibrillation w/RVR A/P-Cardiology Assessment/Admission Diagnosis RLQ/groin pain - undetermined etiology - management per medical services Minimal troponin elevation - likely Type 2 TX d/t episode of a-fib with RVR Sinus node dysfunction, chronic atrial fibrillation - CHADSVasc score 3 - Previously on OAC with Pradaxa - considered intolerant d/t recurrent GI bleeds - he does not wish to be on OAC - he verbalizes understanding of the possible deleterious effects of not being on OAC, including increased risk of stroke - Holter 02-23-22: A Fib throughout with avg vent rate 84 bpm, mostly bundle branch block with occasional narrow complex, no evidence of VT, no significant lucía - SANTA of May [address] 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 Guo at [facility] showed LVEF 25% - MUGA Scan of 06-14-22 showed mod cardiomyopathy with mod global hypokinesis and LVEF of 39% H/o anemia due to repeated GI bleeds: - Probable slow UGI bleed for which he has followed with Dr. Smith and endoscopy in early 2020 that, he states, showed duodenitis with duodenal ulcer. OAC held, then resumed months later that led to recurrence of severe anemia that has been treated with iron replacement - He has has full GI w/u with Dr. 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 Larson at [facility] in July 2010. - MPI of 06/06/17: no ischemia or infarction, LVEF 55% - Echo of 06/15/17: : LVEF 60-65%, trivial AI, PASP approx 25 mmHg - Echo 02/07/22: LVEF 35-40%, mod global hypokinesis, mod biatrial enlargement, mild to mod MR & TR, trivial AI, PASP 50-55 mmHg Carotid dz: - Minimal carotid arterial disease on carotid u/s of 06/20/17 No AAA on an AAA screening scan of 06/20/17 Hyperlipidemia. -Intolerance to statin therapy due to generalized muscle aches Medication Intolerance: - Intolerance to beta-blockers which cause depression. Colon carcinoma: - History of colectomy for colon carcinoma several years ago. History of mild chronic anxiety/depression - currently controlled Gastroesophageal reflux - documented on endoscopy of March 2012 H/o tobacco use - quit in the Discussion and Recomendations RLQ/abd discomfort - undetermined etiology - management per medical services Chronic a-fib - rate controlled at this time - continue home dose of Cardizem - s/p Watchman Minimal troponin elevation - likely type 2 TX secondary to episode of a-fib with RVR Continue home cardiac medications Monitor lab Replace electrolytes as indicated We would like to thank medical services for this consult RUPAL GAMZE Jul 12, 2023 16:01
[2023-07-12 16:48] VITALS: BP 91/57
[2023-07-12] MEDS ORDERED: RT-ALBUTEROL SULF 2.5 MG/3 ML PRE-MIX VIAL INH PRN (17:00)
--- NOTE | 2023-07-12 17:01 | Tele-ICU Progress Note ---
Subjective Date Seen by a Provider: Jul 12, 2023 Time Seen by a Provider: 17:01 Subjective/Events-last exam (Tele-ICU Physician , Progress Note ) Service provided via interactive audio and video telecommunications [facility] s sethte to a patient admitted to ICU bed in [facility]. Patient is seen today due to persistent need of ICU care Available chart/ vitals / labs / Images reviewed Video assessment done using teleICU camera, rest of exam as per RN He is a 82 year old male with PM HX of afib and intolerant to anticoagulants had a watchman's procedure now admitted with AMS, diarrhoea and generalised weakness. . Found to have Afib with rvr and dehydrated. no fever. Had ct abdomen with contrast, no acute findings.LA is 1.4 1. Afib with RVR. 2.Dehydration with weakness and transient hypotension 3. Abdominal pain non specific. Plan 1. Hydrate patient with normal saline as he is potential for contrast induced nephropathy. no evidence of CHF at this time. 2. check stool for c. diff 3. cardizem drip 4.Cardiology consult and check Echo. Coordination of care with primary care physician and bedside consultants. I am remotely monitoring this patient from Tele icu station in [place]. I am unable to do the bedside exam, and history/physical and pertinent information is taken from other notes in the computer and bedside staff. Certain portions of this document may have been dictated utilizing voice recognition technology such as [employer]. Inherent to this technology, typograp hical and grammatical errors may exist. As much as I am diligent to identify and correct to these mistakes, some errors may remain in the document. Critical care time devoted to this patient today is approximately is--20 minutes. Sepsis Event Evaluation Height, Weight, BMI Height: 5'7.00" Weight: 188lbs. 1.0oz. 85.813530oo; 21.46 BMI Method: Focused Exam Lactate Level 07/12/23 14:00: Lactic Acid Level 1.40 Lactic Acid Level Laboratory Tests Test 07/12/23 14:00 Lactic Acid Level 1.40 MMOL/L (0.50-2.00) Exam Exam Patient acknowledged, consented, and participated in this virtual visit which was conducted using real time audio/video Vital Signs Date Time Temp Pulse Resp B/P (MAP) Pulse Ox O2 Delivery O2 Flow Rate FiO2 07/12/23 16:50 36.5 07/12/23 16:48 36.4 100 96 07/12/23 16:30 89 17 64/38 (47) 91 Room Air 07/12/23 16:24 96 Room Air 07/12/23 16:20 94 07/12/23 16:20 93 18 91/57 92 07/12/23 16:15 87 17 84/50 (61) 91 Room Air 07/12/23 13:41 36.4 123 14 94/75 (81) 96 Height & Weight Height: 5'7.00" Weight: 188lbs. 1.0oz. 85.293191fn; 21.46 BMI Method: General Appearance: No Apparent Distress, WD/WN HEENT: PERRL/EOMI, Normal ENT Inspection, Pharynx Normal Neck: Full Range of Motion, Normal Inspection, Non Tender, Supple Respiratory: Chest Non Tender, Lungs Clear, Normal Breath Sounds, No Accessory Muscle Use, No Respiratory Distress Cardiovascular: Normal Peripheral Pulses, Irregularly Irregular, Tachycardia Capillary Refill: Less Than 3 Seconds Extremity: Normal Capillary Refill, Normal Inspection, Normal Range of Motion, Non Tender, No Calf Tenderness, No Pedal Edema Neurologic/Psychiatric: Alert, No Motor/Sensory Deficits, Normal Mood/Affect, Disoriented (oriented to person only) Skin: Normal Color, Warm/Dry Results Lab Laboratory Tests 07/12/23 13:45 Assessment/Plan Assessment/Plan as above Critical Care: Critically Ill Patient Time spent with patient (mins): 20 JOCELYNE NUNEZ MD Jul 12, 2023 17:01
[2023-07-12] MEDS ORDERED: ONDANSETRON INJECTION 4 MG/2 ML (SDV) IV PRN (17:15)
[2023-07-12] MEDS ORDERED: ACETAMINOPHEN 500 MG TABLET PO PRN (17:15)
[2023-07-12] MEDS: NS IV 1000 ML 1,000 ML IV SCH (17:30)
[2023-07-12] MEDS: meTOprolol INJECTION 5 MG/5 ML VIAL IV SCH ×3 (18:07→23:32)
[2023-07-12] MEDS ORDERED: LOSA25TA41 PO (18:11)
[2023-07-12] MEDS ORDERED: DAPA5TAB PO (18:11)
[2023-07-12] MEDS ORDERED: SERT-412 PO (18:11)
[2023-07-12] MEDS ORDERED: CHOL400T PO (18:11)
[2023-07-12] MEDS: inSUlin ASPART 1 UNIT/0.01 ML (PER UNIT) SC SCH (20:59)
[2023-07-12] MEDS ORDERED: PANTOPRAZOLE 40 MG TABLET PO SCH (21:00)
--- NOTE | 2023-07-12 22:52 | Consultation-Cardiology ---
HPI-Cardiology Cardiology Consultation: Date of Consultation 07/12/23 Time Seen by a Provider: 17:15 Date of Admission Attending Physician Jared Carlos MD Admitting Physician Admitting Physician: Viv Olsen MD Attending Physician: Viv Olsen MD Consulting Physician GITA RIZVI MD, FACP, [facility] HPI: Chief Complaint: A-fib with RVR Mr. Franco is an 82 yr old male admitted to ICU 5 from the ED. He reports increasing gen weakness over the course of the last few weeks. He reports right groin pain which has been present for years, but he feels the discomfort has been worse recently. No c/o CP. He reports mild to mod MOSCOSO with occ palpitations with exertion. He denies any syncope or near syncope. No c/o LE swelling. No c/o n/v. He reports he has had diarrhea and poor appetite recently. Review of Systems-Cardiology Review of Systems Constitutional: No chills, No fever; malaise Eyes: No vision change Ears/Nose/Throat: No epistaxis, No recent hearing loss Respiratory: As described under HPI Cardiovascular: As described under HPI Gastrointestinal: As described under HPI Genitourinary: No dysuria, No hematuria Musculoskeletal: no symptoms reported Skin: No rash on exposed areas, No ulcerations on exposed areas Psychiatric/Neurological: No anxiety, No depression, No seizure, No focal weakness, No syncope Hematologic: No bleeding abnormalities All Other Systems Reviewed Negative Unless Noted: Yes LSG-Ggcrio-Zpmwzb Hx Patient Social History Former smoker/When Quit: Jun 24, 1980 2nd Hand Smoke Exposure: No Alcohol Use?: No Pt feels they are or have been: No Immunizations Up To Date Tetanus Booster (TDap): Unknown Date of Pneumonia Vaccine: Jun 12, 2017 Date of Influenza Vaccine: Jun 10, 2020 Past Medical History PMH As described under Assessment. Family Medical History Family Medical History: No fam h/o early CAD Allergies and Home Medications Allergies Coded Allergies: No Known Drug Allergies (Unverified , 10/22/19) Patient Home Medication List Home Medication List Reviewed: Yes ALPRAZolam (Xanax Tablet) 0.25 Mg Tab, 0.25 MG PO Q8H PRN for ANXIETY Prescribed by: VIV OLSEN on 02/09/22 1134 Aspirin (Aspirin) 81 Mg Tab.chew, 81 MG PO DAILY, (Reported) Entered as Reported by: LUKE SIMPSON on 08/11/20 1328 Last Action: Reviewed Cholecalciferol (Vitamin D3) (Vitamin D3) 10 Mcg (400 Unit) Tablet, 50 MCG PO DAILY Prescribed by: LESLIE ALBRECHT on 07/12/231810 Last Action: New Order Dapagliflozin Propanediol (Farxiga) 5 Mg Tablet, 5 MG PO DAILY Prescribed by: LESLIE ALBRECHT on 07/12/231810 Last Action: New Order Diltiazem HCl (Diltiazem 24Hr ER) 240 Mg Cap.er.24h, 240 MG PO DAILY Prescribed by: RUPAL GAMEZ on 02/09/22823 Last Action: Reviewed Furosemide (Lasix) 40 Mg Tablet, 40 MG PO DAILY Prescribed by: RUPAL GAMEZ on 02/09/22823 Last Action: Reviewed Losartan Potassium (Losartan Potassium) 25 Mg Tablet, 25 MG PO DAILY Prescribed by: LESLIE ALBRECHT on 07/12/231810 Last Action: New Order Mirtazapine (Mirtazapine) 15 Mg Tab.rapdis, 7.5 MG PO HS Prescribed by: VIV OLSEN on 02/09/22 113 Multivitamin (Multivitamins) 1 Each Tablet, 1 EACH PO DAILY, (Reported) Entered as Reported by: LUKE SIMPSON on 08/08/17 0956 Last Action: Reviewed Pantoprazole Sodium (Pantoprazole Sodium) 40 Mg Tablet.dr, 40 MG PO DAILY PRN for GERD, (Reported) Entered as Reported by: TORREY SHETTY on 02/07/22 1426 Last Action: Reviewed Sacubitril/Valsartan (Entresto 24 mg-26 mg Tablet) 24 Mg-26 Mg Tablet, 1 TAB PO BID Prescribed by: RUPAL GAMEZ on 02/09/22823 Sertraline HCl (Sertraline HCl) 25 Mg Tablet, 125 MG PO DAILY Prescribed by: LESLIE ALBRECHT on 07/12/231810 Last Action: New Order Spironolactone (Spironolactone) 25 Mg Tablet, 25 MG PO DAILY Prescribed by: RUPAL GAMEZ on 02/09/22823 Physical Exam-Cardiology Physical Exam Vital Signs/I&O 07/12/23 07/12/23 07/12/23 07/12/23 13:41 16:15 16:20 16:20 Temp 36.4 Pulse 123 87 93 94 Resp 14 17 18 B/P (MAP) 94/75 (81) 84/50 (61) 91/57 Pulse Ox 96 91 92 O2 Delivery Room Air 07/12/23 07/12/23 07/12/23 07/12/23 16:24 16:30 16:48 16:50 Temp 36.4 36.5 Pulse 89 100 Resp 17 B/P (MAP) 64/38 (47) Pulse Ox 96 91 96 O2 Delivery Room Air Room Air 07/12/23 07/12/23 07/12/23 07/12/23 17:00 17:30 18:00 19:00 Pulse 89 101 92 92 Resp 14 15 12 B/P (MAP) 94/74 (81) 99/70 (80) 83/84 (84) Pulse Ox 97 90 96 O2 Delivery Room Air Room Air Room Air 07/12/23 07/12/23 07/12/23 07/12/23 19:00 19:45 19:56 20:55 Temp 36.1 Resp 20 B/P (MAP) 123/78 (93) 100/69 (79) Pulse Ox 99 96 O2 Delivery Room Air Room Air Capillary Refill : Less Than 3 Seconds Constitutional: AAO x 3, well-developed, well-nourished HEENT: PERRL, hearing is well preserved, oral hygience is good Neck: No carotid bruit; carotid pulses are 2 + bilaterally Respiratory: No accessory muscle use, No respiratory distress; chest expansion is symmetric, chest is bilaterally symmetric, lungs clear to auscultation Cardiovascular: irregularly irregular; No JVD; S1 and S2, systolic murmur Gastrointestinal: No tender; soft, other (RUQ/groin tenderness) Extremities: no lower extremity edema bilateral Neurologic/Psychiatric: other (moves all extremities) Skin: No rash on exposed areas, No ulcerations on exposed areas Data Review Labs Laboratory Tests 07/12/23 13:45: White Blood Count 10.2, Red Blood Count 4.48, Hemoglobin 12.0L, Hematocrit 38L, Mean Corpuscular Volume 84, Mean Corpuscular Hemoglobin 27, Mean Corpuscular Hemoglobin Concent 32, Red Cell Distribution Width 16.5H, Platelet Count 240, Mean Platelet Volume 10.5, Immature Granulocyte % (Auto) 1, Neutrophils (%) (Auto) 81H, Lymphocytes (%) (Auto) 10L, Monocytes (%) (Auto) 7, Eosinophils (%) (Auto) 1, Basophils (%) (Auto) 0, Neutrophils # (Auto) 8.3H, Lymphocytes # (Auto) 1.0, Monocytes # (Auto) 0.7, Eosinophils # (Auto) 0.1, Basophils # (Auto) 0.0, Immature Granulocyte # (Auto) 0.1, Prothrombin Time 15.7H, INR Comment 1.2, Activated Partial Thromboplast Time 29, Sodium Level 136, Potassium Level 3.9, Chloride Level 104, Carbon Dioxide Level 19L, Anion Gap 13, Blood Urea Nitrogen 54H, Creatinine 1.86H, Estimat Glomerular Filtration Rate 35, BUN/Creatinine Ratio 29, Glucose Level 128H, Calcium Level 9.6, Corrected Calcium 9.8, Magnesium Level 2.2, Total Bilirubin 0.5, Aspartate Amino Transf (AST/SGOT) 20, Alanine Aminotransferase (ALT/SGPT) 27, Alkaline Phosphatase 146H, Troponin I 0.037H, C-Reactive Protein High Sensitivity 6.82H, B-Type Natriuretic Peptide 363.4H, Total Protein 7.3, Albumin 3.8, Lipase 21 07/12/23 14:00: Lactic Acid Level 1.40 07/12/23 14:19: Influenza Type A (RT-PCR) Not Detected, Influenza Type B (RT-PCR) Not Detected, SARS-CoV-2 RNA (RT-PCR) Not Detected 07/12/23 15:30: Urine Color YELLOW, Urine Clarity CLEAR, Urine pH 5.0, Urine Specific [place] 1.015L, Urine Protein NEGATIVE, Urine Glucose (UA) TRACEH, Urine Ketones NEGATIVE, Urine Nitrite NEGATIVE, Urine Bilirubin NEGATIVE, Urine Urobilinogen 0.2, Urine Leukocyte Esterase NEGATIVE, Urine RBC (Auto) TRACEH, Urine RBC NONE, Urine WBC NONE, Urine Crystals PRESENTH, Urine Amorphous Sediment FEW MARISOL URATESH, Urine Bacteria NEGATIVE, Urine Casts PRESENT, Urine Hyaline Casts 10- 25H, Urine Mucus SMALLH, Urine Culture Indicated NO 07/12/23 17:05: Troponin I 0.037H 07/12/23 20:53: Glucometer 115H A/P-Cardiology Assessment/Admission Diagnosis RLQ/groin pain - undetermined etiology - management per medical services Minimal troponin elevation - likely Type 2 [place] d/t episode of a-fib with RVR Sinus node dysfunction, chronic atrial fibrillation - CHADSVasc score 3 - Previously on OAC with Pradaxa - considered intolerant d/t recurrent GI bleeds - he does not wish to be on OAC - he verbalizes understanding of the possible deleterious effects of not being on OAC, including increased risk of stroke - Holter 02-23-22: A Fib throughout with avg vent rate 84 bpm, mostly bundle branch block with occasional narrow complex, no evidence of VT, no significant lucía - SANTA of May [address] 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 Guo at [facility] showed LVEF 25% - MUGA Scan of 06-14-22 showed mod cardiomyopathy with mod global hypokinesis and LVEF of 39% H/o anemia due to repeated GI bleeds: - Probable slow UGI bleed for which he has followed with Dr. Smith and endoscopy in early 2020 that, he states, showed duodenitis with duodenal ulcer. OAC held, then resumed months later that led to recurrence of severe anemia that has been treated with iron replacement - He has has full GI w/u with Dr. 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 Larson at [facility] in July 2010. - MPI of 06/06/17: no ischemia or infarction, LVEF 55% - Echo of 06/15/17: : LVEF 60-65%, trivial AI, PASP approx 25 mmHg - Echo 02/07/22: LVEF 35-40%, mod global hypokinesis, mod biatrial enlargement, mild to mod MR & TR, trivial AI, PASP 50-55 mmHg Carotid dz: - Minimal carotid arterial disease on carotid u/s of 06/20/17 No AAA on an AAA screening scan of 06/20/17 Hyperlipidemia. -Intolerance to statin therapy due to generalized muscle aches Medication Intolerance: - Intolerance to beta-blockers which cause depression. Colon carcinoma: - History of colectomy for colon carcinoma several years ago. History of mild chronic anxiety/depression - currently controlled Gastroesophageal reflux - documented on endoscopy of March 2012 H/o tobacco use - quit in the Discussion and Recomendations RLQ/abd discomfort - undetermined etiology - management per medical services Chronic a-fib - rate controlled at this time - continue home dose of Cardizem - s/p Watchman Minimal troponin elevation - likely type 2 [place] secondary to episode of a-fib with RVR Continue home cardiac medications Monitor lab Replace electrolytes as indicated We would like to thank medical services for this consult GITA RIZVI MD FACP FAC CCDS Jul 12, 2023 22:51
[2023-07-13] MEDS ORDERED: NS IV 500 ML 500 ML IV PRN (00:30)
[2023-07-13] MEDS: meTOprolol INJECTION 5 MG/5 ML VIAL IV SCH ×4 (02:50→12:03)
[2023-07-13] MEDS: NS IV 1000 ML 1,000 ML IV SCH ×2 (03:20→14:39)
[2023-07-13 03:58] LABS: BASOPHILS % (AUTO) 0 % (0-10); EOSINOPHILS # (AUTO) 0.3 10^3/uL (0.0-0.3); EOSINOPHILS % (AUTO) 3 % (0-10); HEMATOCRIT 33 % (40-54); HEMOGLOBIN 10.6 g/dL (13.3-17.7); LYMPHOCYTES # (AUTO) 1.2 10^3/uL (1.0-4.0); LYMPHOCYTES % (AUTO) 14 % (12-44); MEAN CORPUSCULAR HEMOGLOBIN 27 pg (25-34); MEAN CORPUSCULAR HGB CONC 32 g/dL (32-36); MEAN CORPUSCULAR VOLUME 83 fL (80-99); MEAN PLATELET VOLUME 10.6 fL (9.0-12.2); MONOCYTES # (AUTO) 0.7 10^3/uL (0.0-1.0); MONOCYTES % (AUTO) 8 % (0-12); NEUTROPHILS # (AUTO) 6.3 10^3/uL (1.8-7.8); NEUTROPHILS % (AUTO) 74 % (42-75); PLATELET COUNT 202 10^3/uL (130-400); WHITE BLOOD COUNT 8.5 10^3/uL (4.3-11.0)
[2023-07-13 04:21] LABS: ALBUMIN 3.4 GM/DL (3.2-4.5); POTASSIUM 3.5 MMOL/L (3.6-5.0)
[2023-07-13 04:22] LABS: CALCIUM 8.9 MG/DL (8.5-10.1)
[2023-07-13 04:23] LABS: TOTAL PROTEIN 6.4 GM/DL (6.4-8.2)
[2023-07-13 04:25] LABS: BILIRUBIN,TOTAL 0.5 MG/DL (0.1-1.0)
[2023-07-13 04:27] LABS: CREATININE SERUM 1.54 MG/DL (0.60-1.30); PHOSPHORUS 3.5 MG/DL (2.3-4.7)
[2023-07-13 04:30] LABS: MAGNESIUM 2.1 MG/DL (1.6-2.4)
[2023-07-13] MEDS: inSUlin ASPART 1 UNIT/0.01 ML (PER UNIT) SC SCH ×2 (04:31→10:58)
[2023-07-13] MEDS ORDERED: POTASSIUM CL 10MEQ/50ML IVPB 100 ML IV ONE (04:38)
[2023-07-13] MEDS: POTASSIUM CL 10MEQ/50ML IVPB 50 ML IV SCH ×3 (04:41→05:56)
[2023-07-13] MEDS ORDERED: POTASSIUM CL 10MEQ/50ML IVPB 50 ML IV SCH (06:00)
[2023-07-13] MEDS ORDERED: MAGNESIUM 1 GM/100 ML IVPB 100 ML IV SCH (06:00)
[2023-07-13] MEDS ORDERED: POTASSIUM CHLORIDE 20 MEQ TABLET PO SCH (06:00)
[2023-07-13] MEDS ORDERED: ASPIRIN 81 MG CHEWABLE TABLET PO SCH (09:00)
[2023-07-13] MEDS ORDERED: dilTIAZem ER 240 MG CAPSULE PO SCH (09:00)
--- NOTE | 2023-07-13 09:50 | Tele-ICU Progress Note ---
Subjective Date Seen by a Provider: Jul 13, 2023 Time Seen by a Provider: 09:49 Subjective/Events-last exam (Tele-ICU Physician , Progress Note ) Service provided via interactive audio and video telecommunications E-CARE s te to a patient admitted to ICU bed in [facility]. Patient is seen today due to persistent need of ICU care Available chart/ vitals / labs / Images reviewed Video assessment done using teleICU camera, rest of exam as per RN He is a 82 year old male with PM HX of afib and intolerant to anticoagulants had a watchman's procedure now admitted with AMS, diarrhoea and generalised weakness. . Found to have Afib with rvr and dehydrated. no fever. Had ct abdomen with contrast, no acute findings.LA is 1.4 07/13/23. he is feeling some better. hr fairly controlled. started on po diltiazem. creatinin down to 1.54 1. Afib with RVR improving. 2.Dehydration with weakness and transient hypotension improving 3. Abdominal pain non specific. Plan 1. Hydrate patient with normal saline as he is potential for contrast induced nephropathy. no evidence of CHF at this time. 2. check stool for c. diff 3. cardizem drip will be stopped and start po 4.Cardiology consult and check Echo. Coordination of care with primary care physician and bedside consultants. I am remotely monitoring this patient from Tele icu station in [place]. I am unable to do the bedside exam, and history/physical and pertinent information is taken from other notes in the computer and bedside staff. Certain portions of this document may have been dictated utilizing voice recognition technology such as [employer]. Inherent to this technology, typographical and grammatical errors may exist. As much as I am diligent to identify and correct to these mistakes, some errors may remain in the document. Critical care time devoted to this patient today is approximately is--20 minutes. Sepsis Event Evaluation Height, Weight, BMI Height: 5'7.00" Weight: 188lbs. 1.0oz. 85.814708uo; 23.93 BMI Method: Focused Exam Lactate Level 07/12/23 14:00: Lactic Acid Level 1.40 Exam Exam Patient acknowledged, consented, and participated in this virtual visit which was conducted using real time audio/video Vital Signs Date Time Temp Pulse Resp B/P (MAP) Pulse Ox O2 Delivery O2 Flow Rate FiO2 07/13/23 09:00 92 9 116/67 (83) 95 Room Air 07/13/23 08:00 96 Room Air 07/13/23 08:00 96 15 84/61 (69) 100 Room Air 07/13/23 07:00 93 9 103/63 (76) 100 Room Air 07/13/23 07:00 93 07/13/23 06:00 96 15 100/78 (85) 97 Room Air 07/13/23 05:00 86 10 93/70 (78) 97 Room Air 07/13/23 04:00 108 95/70 (78) 96 Room Air 07/13/23 03:20 36.6 Room Air 07/13/23 03:20 96 Room Air 07/13/23 03:00 95 16 92/74 (80) 99 Room Air 07/13/23 02:00 112 15 93/43 (60) 100 Room Air 07/13/23 01:00 101 16 99/74 (82) 98 Room Air 07/13/23 01:00 100 07/13/23 00:00 103 14 94/54 (67) 100 Room Air 07/12/23 23:33 100/63 (75) 07/12/23 23:30 100 Room Air 07/12/23 23:24 37.1 101 14 128/81 (97) 96 Room Air 07/12/23 23:00 92 10 89/51 (64) 97 Room Air 07/12/23 22:00 93 12 103/86 (92) 98 Room Air 07/12/23 21:00 147 21 95/70 (78) 97 Room Air 07/12/23 20:55 100/69 (79) 07/12/23 20:00 102 16 100/69 (79) 99 Room Air 07/12/23 19:56 36.1 07/12/23 19:45 96 Room Air 07/12/23 19:00 20 123/78 (93) 99 Room Air 07/12/23 19:00 92 07/12/23 19:00 117 97/45 (62) Room Air 07/12/23 18:00 92 12 83/84 (84) 96 Room Air 07/12/23 17:30 101 15 99/70 (80) 90 Room Air 07/12/23 17:00 89 14 94/74 (81) 97 Room Air 07/12/23 16:50 36.5 07/12/23 16:48 36.4 100 96 07/12/23 16:30 89 17 64/38 (47) 91 Room Air 07/12/23 16:24 96 Room Air 07/12/23 16:20 94 07/12/23 16:20 93 18 91/57 92 07/12/23 16:15 87 17 84/50 (61) 91 Room Air 07/12/23 13:41 36.4 123 14 94/75 (81) 96 I & O 07/13/23 07:00 Intake Total 2070 ml Output Total 1551 ml Balance 519 ml Height & Weight Height: 5'7.00" Weight: 188lbs. 1.0oz. 85.000824bm; 23.93 BMI Method: General Appearance: No Apparent Distress, WD/WN HEENT: PERRL/EOMI, Normal ENT Inspection, Pharynx Normal Neck: Full Range of Motion, Normal Inspection, Non Tender, Supple Respiratory: Chest Non Tender, Lungs Clear, Normal Breath Sounds, No Accessory Muscle Use, No Respiratory Distress Cardiovascular: Normal Peripheral Pulses, Irregularly Irregular, Tachycardia Capillary Refill: Less Than 3 Seconds Extremity: Normal Capillary Refill, Normal Inspection, Normal Range of Motion, Non Tender, No Calf Tenderness, No Pedal Edema Neurologic/Psychiatric: Alert, No Motor/Sensory Deficits, Normal Mood/Affect, Disoriented (oriented to person only) Skin: Normal Color, Warm/Dry Results Lab Laboratory Tests 07/12/23 13:45 07/13/23 03:39 Assessment/Plan Assessment/Plan as above Critical Care: Critically Ill Patient Time spent with patient (mins): 20 JOCELYNE NUNEZ MD Jul 13, 2023 09:50
--- NOTE | 2023-07-13 10:51 | Physical Therapy Evaluation ---
PT Evaluation-General Medical Diagnosis Admission Date Jul 12, 2023 at 16:06 Medical Diagnosis: A-fib with RVR Onset Date: Jul 12, 2023 Therapy Diagnosis Therapy Diagnosis: debility Height/Weight Height (Feet): 5 Height (Inches): 7.00 Weight (Pounds): 188 Weight (Ounces): 1.0 Precautions Precautions/Isolations: Fall Prevention, Standard Precautions Referral Physician: Ricky Reason for Referral: Evaluation/Treatment Medical History Pertinent Medical History: Atrial Fib, CAD, Heart Failure, HTN Current History ER secondary to right groin pain, decreased mobility/confusion Reviewed History: Yes Social History Home: Multilevel (duplex) Current Living Status: Other Family Prior Prior Level of Function SCALE: Activities may be completed with or without assistive devices. 9-Gcwxjbhsjp-pbochkh completes the activity by him/herself with no assistance from a helper. 5-Set-up or Clean-up Assistance-helper sets up or cleans up; patient completes activity. [place] assists only prior to or following the activity. 4-Supervision or Touching Assistance-helper provides verbal cues and/or touching/steadying and/or contact guard assistance as patient completes activity. Assistance may be provided throughout the activity or intermittently. 3-Partial/Moderate Assistance-helper does LESS THAN HALF the effort. [place] lifts, holds or supports trunk or limbs, but provides less than half the effort. 2-Substantial/Maximal Assistance-helper does MORE THAN HALF the effort. [place] lifts or holds trunk or limbs and provides more than half the effort. 9-Tgobpafmh-qrfybd does ALL the effort. Patient does none of the effort to complete the activity. Or, the assistance of 2 or more helpers is required for the patient to complete the activity. If activity was not attempted, code reason: 7-Patient Refused. 9-Not Applicable-not attempted and the patient did not perform the activity before the current illness, exacerbation or injury. 10-Not Attempted due to Environmental Limitations-(lack of equipment, weather restraints, etc.). 88-Not Attempted due to Medical Conditions or Safety Concerns. Bed Mobility: 4 Transfers (B,C,W/C): 4 Gait: 4 Indoor Mobility (Ambulation): Needed Some Help Prior Devices Use: Manual wheelchair, Walker (4WW) PT Evaluation-Current Subjective Patient agrees to therapy. ROM/Strength ROM Lower Extremities bilateral LE WFL Strength Lower Extremities left foot drop, 3+/5 grossly knee flexion/extension, hip flexion;right LE 3+/5 grossly all planes Integumentary/Posture Bowel Incontinence: No Bladder Incontinence: No Posture slightly kyphotic Neuromuscular (Tone, Coordination, Reflexes) grossly intact Sensory Vision: Wears Glasses Hearing: Functional Transfers Lying to Sitting/Side of Bed(Q: 4 Sit to Stand (QC): 4 Chair/Jym-od-Swsbz Xfer(QC): 4 Gait Mode of Locomotion: Walk Anticipated Mode of Locomotion: Walk Walk 10 feet (QC): 4 Walk 50 ft with 2 Turns(QC): 4 Walk 150 ft (QC): 4 Distance: 180' Gait Assistive Device: FWW Comments/Gait Description slow, steady, functional gait sequence Balance Sitting Static: Normal Sitting Dynamic: Normal Standing Static: Normal Standing Dynamic: Normal Assessment/Needs Patient will be seen short term by skilled PT to address functional strength and mobility to improve current LOF to safely return to home with family at maximum LOF. Rehab Potential: Fair PT Chcf Goals Control Manager Goals PT Chcf Goals Time Frame: Jul 22, 2023 Roll Left & Right (QC): 6 Sit to Lying (QC): 6 Lying-Sitting on Side/Bed(QC): 6 Sit to Stand (QC): 4 Chair/Ehj-fz-Jdnws Xfer(QC): 4 Toilet Transfer (QC): 4 Walk 10 feet (QC): 4 Walk 50ft with 2 Turns (QC): 4 Walk 150 ft (QC): 4 PT Plan Problem List Problem List: Activity Tolerance, Functional Strength, Safety, Gait, Transfer Treatment/Plan Treatment Plan: Continue Plan of Care Treatment Plan: Bed Mobility, Education, Functional Activity Janelle, Functional Strength, Gait, Safety, Therapeutic Exercise, Transfers Treatment Duration: Jul 22, 2023 Frequency: 5 times per week Estimated Hrs Per Day: .25 hour per day Patient and/or Family Agrees t: Yes Time Time In: 1031 Time Out: 1043 DATE: Jul 13, 2023 Total Billed Treatment Time: 14 Total Billed Treatment 1 visit EVMod 14 min AMINA MOREIRA PT Jul 13, 2023 10:51
--- NOTE | 2023-07-13 11:21 | Occupational Therapy Eval ---
OT Evaluation-General/PLF Medical Diagnosis Admission Date Jul 12, 2023 at 16:06 Medical Diagnosis: A-fib with RVR Onset Date: Jul 12, 2023 Therapy Diagnosis Therapy Diagnosis: weakness Height/Weight Height (Feet): 5 Height (Inches): 7.00 Weight (Pounds): 188 Weight (Ounces): 1.0 Precautions Precautions/Isolations: Fall Prevention, Standard Precautions Weight Bear Status Weight Bearing Restriction: Full Weight Bearing Referral Physician: Ricky Referral Reason: Evaluation/Treatment Medical History Pertinent Medical History: Atrial Fib, CAD, Heart Failure, HTN Reviewed History: Yes Social History Home: Multilevel (duplex w/ basement) Current Living Status: Other Family ADL-Prior Level of Function SCALE: Activities may be completed with or without assistive devices. 9-Rsvjqqnxuf-fzegyuq completes the activity by him/herself with no assistance from a helper. 5-Set-up or Clean-up Assistance-helper sets up or cleans up; patient completes activity. [place] assists only prior to or following the activity. 4-Supervision or Touching Assistance-helper provides verbal cues and/or touching/steadying and/or contact guard assistance as patient completes activity. Assistance may be provided throughout the activity or intermittently. 3-Partial/Moderate Assistance-helper does LESS THAN HALF the effort. [place] lifts, holds or supports trunk or limbs, but provides less than half the effort. 2-Substantial/Maximal Assistance-helper does MORE THAN HALF the effort. [place] lifts or holds trunk or limbs and provides more than half the effort. 8-Somxaptqo-kaigqm does ALL the effort. Patient does none of the effort to complete the activity. Or, the assistance of 2 or more helpers is required for the patient to complete the activity. If activity was not attempted, code reason: 7-Patient Refused. 9-Not Applicable-not attempted and the patient did not perform the activity before the current illness, exacerbation or injury. 10-Not Attempted due to Environmental Limitations-(lack of equipment, weather restraints, etc.). 88-Not Attempted due to Medical Conditions or Safety Concerns. Self Care: Independent Functional Cognition: Needed Some Help DME/Equipment Comments has a walker and a WC at home Drive Self: No OT Current Status Subjective Agreeable to participate Mental Status/Objective Patient Orientation: Person, Place, Time, Situation Attachments: Telemetry Current Glasses/Contacts: Yes Upper Extremity ROM BUE ROM WFL Upper Extremity Coordination INTACT [facility] Upper Extremity Strength +3/5 ADL-Treatment Eating (QC): 5 Oral Hygiene (QC): 5 Shower/Bathe Self (QC): 7 Upper Body Dressing (QC): 4 Lower Body Dressing (QC): 4 On/Off Footwear (QC): 44 Toileting Hygiene (QC): 4 Education OT Patient Education: Correct positioning, Modified ADL techniques, Progress toward Goal/Update tx plan, Purpose of tx/functional activities, Reviewed precautions, Rehab process, Safety issues, Transfer techniques Teaching Recipient: Patient Teaching Methods: Demonstration, Discussion Response to Teaching: Verbalize Understanding, Reinforcement Needed OT Jail Goals Jail Goals Eating (QC): 6 Oral Hygiene (QC): 6 Toileting Hygiene (QC): 6 Shower/Bathe Self (QC): 6 Upper Body Dressing (QC): 6 Lower Body Dressing (QC): 6 On/Off Footwear (QC): 6 1=Demonstrate adherence to instructed precautions during ADL tasks. 2=Patient will verbalize/demonstrate understanding of assistive devices/modifications for ADL. 3=Patient will improve strength/tolerance for activity to enable patient to perform ADL's. OT Education/Plan Problem List/Assessment Assessment: Decreased Activ Tolerance, Decreased Safety Aware, Decreased UE Strength, Impaired Coordination, Impaired Funct Balance, Impaired Self-Care Skills Discharge Recommendations Plan/Recommendations: Continue POC Therapy Discharge Recommendati: Post Acute OT Treatment Plan/Plan of Care Treatment,Training & Education: Yes Patient would benefit from OT for education, treatment and training to promote independence in ADL's, mobility, safety and/or upper extremity function for ADL's. Plan of Care: ADL Retraining, Concurrent Therapy, Functional Mobility, Group Exercise/Act as Ind, UE Funct Exercise/Act, UE Neuromus Re-Ed/Coord Treatment Duration: Jul 21, 2023 Frequency: 3 times per week (3-5 times per week) Estimated Hrs Per Day: .25 hour per day Agreement: Yes Rehab Potential: Fair Time Start Time: 10:10 Stop Time: 10:23 DATE: Jul 13, 2023 Total Time Billed (hr/min): 13 Billed Treatment Time EVM 13 min ZACKARY LOPEZ OT Jul 13, 2023 11:21
[2023-07-13] MEDS ORDERED: FURO-125 PO (12:53)
--- NOTE | 2023-07-13 12:57 | D/C HH Face to Face Order ---
D/C Face to Face Orders Instructions for Patient Via [facility], Patient Instructions/FollowUp: see instructions Physician to follow Patient: Breanna Discharge Diet for Home: Low Sodium Diet Patient Data-Allergies,Ht & Wt Patient Allergies: Coded Allergies: No Known Drug Allergies (Unverified , 10/22/19) Height (Feet): 5 Height (Inches): 7.00 Weight (Pounds): 188 Weight (Ounces): 1.0 Home Health Need/Face to Face Date of Face to Face: Jul 13, 2023 Clinical Findings: Generalized weakness and fatigue, Instability, Muscle weakness, Unsteady gait I have seen Pt rkao-ai-mrhc: Yes Discharged To: Home Diagnosis/Conditions: Heart failure AFib CKD Weakness Problems/Diagnosis/Condition: (1) Afib (2) CHF (congestive heart failure) (3) CKD (chronic kidney disease) (4) Debility Patient is Homebound due to: [place]ola fall risk due to instabilty, Muscle weakness Homebound Status Due to the above stated illness, injury or surgical procedure (medical condition or diagnosis) and associated clinical findings, the patient is homebound because of his/her inability to leave home except with aid of a supportive device and/or person AND leaving the home requires a considerable and taxing effort or is medically contraindicated. Pt req the following assistanc: Aid of another person, Walker Home Health Nursing Orders Home Health Services Order: Nursing Services, Student Financial Services Counselor-Evaluate & Treat, Physical Therapy-Evaluate & Treat Home Health Infusion Therapy Line Start Date: Jul 12, 2023 Therapy Orders Therapy Orders: OT (must have SN or PT order), Physical Therapy Therapy Specific Orders: Eval assistive deivces, Teach enviro modifications/safety, Gait training, Increase strength/endurance Certify Stmt I certify that this patient is under my care and that I, a nurse practitioner or a physician; a court assistant working with me, had a face to face encounter that - meets the physician face to face encounter requirements with this patient as dated. VIV OLSEN MD Jul 13, 2023 12:57
[2023-07-13 14:30] VITALS: BP 91/68
--- NOTE | 2023-07-13 17:45 | Progress Note - Cardiology ---
Cardiology SOAP Progress Note Subjective: Feels better today No abd pain Diarrhea improved No cp or palp or syncope No shortness of breath No focal weakness Wishes to go home Objective: I&O/Vital Signs 07/13/23 07/13/23 07/13/23 07/13/23 06:00 07:00 07:00 08:00 Pulse 96 93 93 96 Resp 15 9 15 B/P (MAP) 100/78 (85) 103/63 (76) 84/61 (69) Pulse Ox 97 100 100 O2 Delivery Room Air Room Air Room Air 07/13/23 07/13/23 07/13/23 07/13/23 08:00 09:00 10:00 11:00 Pulse 92 93 112 Resp 9 16 16 B/P (MAP) 116/67 (83) 83/57 (66) 109/96 (100) Pulse Ox 96 95 98 100 O2 Delivery Room Air Room Air Room Air Room Air 07/13/23 07/13/23 07/13/23 07/13/23 11:51 12:00 12:00 12:27 Temp 36.0 Pulse 85 76 Resp 13 B/P (MAP) 75/63 (67) Pulse Ox 98 90 O2 Delivery Room Air Room Air 07/13/23 07/13/23 07/13/23 13:00 14:00 14:30 Pulse 85 85 79 Resp 24 15 16 B/P (MAP) 88/56 (67) 92/68 (76) 91/68 Pulse Ox 90 90 98 O2 Delivery Room Air Room Air Room Air 07/13/23 00:00 Intake Total 795 ml Output Total 351 ml Balance 444 ml Weight (Pounds): 188 Weight (Ounces): 1.0 Weight (Calculated Kilograms): 85.656498 Constitutional: AAO x 3, well-developed, well-nourished Respiratory: No accessory muscle use, No respiratory distress; chest expansion is symmetric, chest is bilaterally symmetric, lungs clear to auscultation Cardiovascular: irregularly irregular; No JVD; S1 and S2, systolic murmur Gastrointestional: No tender; soft, other (RUQ/groin tenderness) Extremities: no lower extremity edema bilateral Neurologic/Psychiatric: other (moves all extremities) Skin: No rash on exposed areas, No ulcerations on exposed areas Results/Procedures: Labs Laboratory Tests 07/12/23 20:53: Glucometer 115H 07/13/23 03:39: White Blood Count 8.5, Red Blood Count 4.00L, Hemoglobin 10.6L, Hematocrit 33L, Mean Corpuscular Volume 83, Mean Corpuscular Hemoglobin 27, Mean Corpuscular Hemoglobin Concent 32, Red Cell Distribution Width 16.5H, Platelet Count 202, Mean Platelet Volume 10.6, Immature Granulocyte % (Auto) 0, Neutrophils (%) (Auto) 74, Lymphocytes (%) (Auto) 14, Monocytes (%) (Auto) 8, Eosinophils (%) (Auto) 3, Basophils (%) (Auto) 0, Neutrophils # (Auto) 6.3, Lymphocytes # (Auto) 1.2, Monocytes # (Auto) 0.7, Eosinophils # (Auto) 0.3, Basophils # (Auto) 0.0, Immature Granulocyte # (Auto) 0.0, Sodium Level 139, Potassium Level 3.5L, Chloride Level 108H, Carbon Dioxide Level 18L, Anion Gap 13, Blood Urea Nitrogen 48H, Creatinine 1.54H, Estimat Glomerular Filtration Rate 44, BUN/Creatinine Ratio 31, Glucose Level 96, Calcium Level 8.9, Corrected Calcium 9.4, Phosphorus Level 3.5, Magnesium Level 2.1, Total Bilirubin 0.5, Aspartate Amino Transf (AST/SGOT) 17, Alanine Aminotransferase (ALT/SGPT) 22, Alkaline Phosphatase 131, Total Protein 6.4, Albumin 3.4 07/13/23 10:29: Glucometer 117H Microbiology 07/13/23 C. difficile GDH Antigen & Toxins - Final, Complete A/P: Assessment: RLQ/groin pain - undetermined etiology - management per Medical services Minimal troponin elevation - likely Type 2 [place] d/t episode of a-fib with RVR Sinus node dysfunction, chronic atrial fibrillation - CHADSVasc score 3 - Previously on OAC with Pradaxa - considered intolerant d/t recurrent GI bleeds - he does not wish to be on OAC - he verbalizes understanding of the possible deleterious effects of not being on OAC, including increased risk of stroke - Holter 02-23-22: A Fib throughout with avg vent rate 84 bpm, mostly bundle branch block with occasional narrow complex, no evidence of VT, no significant lucía - SANTA of May [address] 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 Guo at [facility] showed LVEF 25% - MUGA Scan of 06-14-22 showed mod cardiomyopathy with mod global hypokinesis and LVEF of 39% H/o anemia due to repeated GI bleeds: - Probable slow UGI bleed for which he has followed with Dr. Smith and endoscopy in early 2020 that, he states, showed duodenitis with duodenal ulcer. OAC held, then resumed months later that led to recurrence of severe anemia that has been treated with iron replacement - He has has full GI w/u with Dr. 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 Larson at [facility] in July 2010. - MPI of 06/06/17: no ischemia or infarction, LVEF 55% - Echo of 06/15/17: : LVEF 60-65%, trivial AI, PASP approx 25 mmHg - Echo 02/07/22: LVEF 35-40%, mod global hypokinesis, mod biatrial enlargement, mild to mod MR & TR, trivial AI, PASP 50-55 mmHg - Echo of 07-13-23: LVEF 35-40%, mod global hypokinesis, mod biatrial enlargement, mild to mod MR, mild AI, PASP 45-50 mmHg Carotid dz: - Minimal carotid arterial disease on carotid u/s of 06/20/17 No AAA on an AAA screening scan of 06/20/17 Hyperlipidemia. -Intolerance to statin therapy due to generalized muscle aches Medication Intolerance: - Intolerance to beta-blockers which cause depression. Colon carcinoma: - History of colectomy for colon carcinoma several years ago. History of mild chronic anxiety/depression - currently controlled Gastroesophageal reflux - documented on endoscopy of March 2012 H/o tobacco use - quit in the Plan: * His cardiac status is stable * We recommend continuation of his previous cardiac regimen that he was on before hospitalization * Outpt cardiac f/u advised GITA RIZVI MD FACP FAC CCDS Jul 13, 2023 17:45
--- NOTE | 2023-07-13 19:45 | Short Stay Summary-Hospitalist ---
History of Present Illness HPI/Chief Complaint Kenn Franco is an 82 year old male with PMH HFrEF, AFib, CKD, history of GI bleeds, who presented with shortness of breath. He has also had confusion. He reports diarrhea recently, last episode a couple days ago. He has been lightheaded and dizzy. He denies chest pain. He denies abdominal pain. He denies nausea and vomiting. He feels like he is improved and ready to go home. Source: patient Exam Limitations: no limitations Date Seen 07/13/23 Time Seen by a Provider: 10:05 Attending Physician Sukhwinder Anderson MD PCP Admitting Physician: Viv Olsen MD Attending Physician: Viv Olsen MD Referring Physician Date of Admission Jul 12, 2023 at 16:06 Home Medications & Allergies Home Medications Reviewed patient Home Medication Reconciliation performed by pharmacy medication reconciliations histologic technician and/or nursing. Patients Allergies have been reviewed. Allergies Allergies Coded Allergies No Known Drug Allergies (Unverified10/22/19) Past Pwlvayw-Nfusac-Fqysfh Hx Patient Social History Tobacco Use?: No Use of E-Cig and/or Vaping dev: No Use of E-Cig and/or Vaping Suman: Former User Substance use?: No Alcohol Use?: No Pt feels they are or have been: No Immunizations Up To Date Date of Influenza Vaccine: Jun 10, 2020 First/Initial COVID19 Vaccinat: DOES NOT HAVE CARD, HAS HAD 4 VACCINES Second COVID19 Vaccination Pablo: DOES NOT HAVE CARD, HAS HAD 4 VACCINES Tetanus Booster (TDap): More Than 5 Years Hepatitis A: No Hepatitis B: No Date of Pneumonia Vaccine: Jun 12, 2017 Seasonal Allergies Seasonal Allergies: Yes Current Status Advance Directives: Yes Advance Directive Location: Home Communicates: Verbally Primary Language: Iranian Preferred Spoken Language: Iranian Is interpretation needed?: No Sensory deficits: Vision impairment Implanted or Applied Medical D: Stents, Other Past Medical History Surgeries: Appendectomy, CABG, Gallbladder Currently Using CPAP: No Currently Using BIPAP: No Atrial Fibrillation, Deep Vein Thrombosis, Hypertension Sexually Transmitted Disease: No HIV/AIDS: No Chronic Constipation, Polyps Loss of Vision: Bilateral Hearing Impairment: Denies Colon Did You Recieve Any Treatments: Yes What Type of Treatment Did You: Surgical Intervention Depression Blood Disorders: Yes (ANEMIA) Adverse Reaction/Blood Tranf: No (N/A) Family Medical History Psychiatric Problems Review of Systems Constitutional: dizziness Respiratory: short of breath Cardiovascular: no symptoms reported Gastrointestinal: diarrhea Physical Exam Physical Exam Vital Signs Vital Signs - First Documented 07/12/23 07/12/23 13:41 16:15 Temp 36.4 Pulse 123 Resp 14 B/P (MAP) 94/75 (81) Pulse Ox 96 O2 Delivery Room Air Capillary Refill : Less Than 3 Seconds Height, Weight, BMI Height: 5'7.00" Weight: 188lbs. 1.0oz. 85.519640af; 23.93 BMI Method: General Appearance: No Apparent Distress, WD/WN Eyes: Bilateral Eye Normal Inspection, Bilateral Eye EOMI HEENT: PERRL/EOMI, Pharynx Normal Neck: Normal Inspection, Supple Respiratory: Lungs Clear, Normal Breath Sounds, No Respiratory Distress Cardiovascular: No Murmur, Irregularly Irregular Gastrointestinal: Normal Bowel Sounds, Non Tender, Soft, Hernia Extremity: Normal Inspection, Non Tender, No Pedal Edema Neurologic/Psychiatric: Alert, No Motor/Sensory Deficits, Normal Mood/Affect Skin: Normal Color, Warm/Dry Results Results/Procedures Labs Laboratory Tests 07/12/23 13:45 07/13/23 03:39 Patient resulted labs reviewed. Imaging: Reviewed Imaging Report Short Stay Diagnosis Discharge Diagnosis-Short Stay Admission Diagnosis AFib with RVR Final Discharge Diagnosis AFib with RVR Conclusion Plan AFib with RVR Dehydration Hypotension Chronic HFrEF CKD Elevated troponin Debility Cardiology consulted and assisted with his care Elevated troponin thought to be tachycardia related Low BP improved with gentle fluids Cardiology recommended continuing previous medication regimen Losartan and Spironolactone held due to hypotension, may resume at Cardiology follow up if blood pressure tolerates Decreased to Lasix 20 mg daily Follow up with Dr. Anderson in about a week Follow up with Cardiology as scheduled Discharged home with home health care Order given for front-wheeled walker Diagnosis/Problems Diagnosis/Problems (1) Atrial fibrillation with RVR Status: Acute (2) Chronic HFrEF (heart failure with reduced ejection fraction) Status: Chronic (3) CKD (chronic kidney disease) stage 3, GFR 30-59 ml/min Status: Chronic (4) History of GI bleed Status: Chronic (5) Elevated troponin Status: Acute (6) Debility Status: Acute Copy Copies To 1: SUKHWINDER ANDERSON MD Copies To 2: GITA RIZVI MD FACP FACC CCDS VIV OLSEN MD Jul 13, 2023 19:45
--- NOTE | 2023-07-17 17:23 | Physician Query Clarification ---
PQ-Uncertain Diagnosis Admission/Discharge Admission Date: Jul 12, 2023 at 16:06 Discharge Date: Jul 13, 2023 at 14:30 The medical record reflects the following clinical scenario: History/Risk Factors: CAD, angina Clinical Findings: elevated troponin Treatment: treatment for atrial fib Question: Is likely Type 2 [place] a clinically valid diagnosis? likely Type 2 [place] d/t episode of a-fib with RVR was documented in the Cardiology consult and progress notes with no further documentation in the medical record. Please document a response in Progress Note or Discharge Summary. 1. Yes, clinically valid 2. No 3. Other, with explanation of clinical findings. 4. Undetermined, no explanation for clinical findings. PHYSICIAN RESPONSE Diagnosis clinically valid: Yes, Conditon resolved In responding to this query, please exercise your independent professional judgment. The purpose of this communication is to more accurately reflect the complexity of your patients condition. The fact that a question is asked does not imply that any particular answer is desired or expected. Thank you for your timely response to this clarification. Requestors name: Lois THIS PHYSICIAN QUERY FORM IS A PERMANENT PART OF THE MEDICAL RECORD LOIS GUZMAN Jul 17, 2023 17:22 VIV OLSEN MD Jul 20, 2023 11:28
== END 2023-07-13 14:30 | disposition home or self-care (01) | DRG 281 ==
LOC: EDUNIT# 13:36 → ER 13:38 → ICU 16:06
PROVIDERS: ADMIT Internal Medicine; ATTEND Internal Medicine
DX: I48.20 Chronic atrial fibrillation, unspecified (principal); I21.A1 Myocardial infarction type 2; I50.22 Chronic systolic (congestive) heart failure; K92.2 Gastrointestinal hemorrhage, unspecified; E86.0 Dehydration; I95.9 Hypotension, unspecified; Z66 Do not resuscitate; N18.30 Chronic kidney disease, stage 3 unspecified; I49.5 Sick sinus syndrome; I42.0 Dilated cardiomyopathy; I25.10 Atherosclerotic heart disease of native coronary artery without angina pectoris; D50.0 Iron deficiency anemia secondary to blood loss (chronic); E78.5 Hyperlipidemia, unspecified; F41.9 Anxiety disorder, unspecified; F32.A Depression, unspecified; K21.9 Gastro-esophageal reflux disease without esophagitis; I77.9 Disorder of arteries and arterioles, unspecified; R10.31 Right lower quadrant pain; Z87.891 Personal history of nicotine dependence; Z85.038 Personal history of other malignant neoplasm of large intestine; Z87.19 Personal history of other diseases of the digestive system; Z20.822 Contact with and (suspected) exposure to COVID-19
CPT/HCPCS: 36415; 70450; 71045; 74177; 80053; 81000; 82947; 83605; 83690; 83735; 83880; 84100; 84484; 85025; 85610; 85730; 86141; 87324; 87449; 87636; 93005; 93041; 93306

== ENCOUNTER → 2023-08-07 | Outpatient (CLI) | payer MEDICARE, OTHER ==
[~2023-08-07] MED LIST changes: +DAPA5TAB PO; +FURO-125 PO; +LOSA25TA41 PO; +SERT-412 PO
--- NOTE | 2023-08-07 11:29 | Diagnostic Imaging Report ---
INDICATION: PrimaryDx R41.3 OTHER AMNESIA TECHNIQUE: Routine non contrast-enhanced axial images were obtained from the skull base to the vertex. Auto Exposure Controls were utilized during the CT exam to meet ALARA standards for radiation dose reduction COMPARISON: 07/12/2023. FINDINGS: The ventricles and cortical sulci are diffusely prominent, compatible with age-related volume loss. There are confluent areas of abnormal, low attenuation in the periventricular white matter. This is consistent with chronic small vessel ischemic changes. There is no midline shift or mass-effect. No acute intra-axial hemorrhage is seen. There are no abnormal areas of increased or decreased density to suggest acute hemorrhage or edema. No extra-axial masses or collections are present. The bony calvarium is intact. The visualized paranasal sinuses show postsurgical changes and scattered mild mucosal thickening. The mastoid air cells are clear. IMPRESSION: 1. No acute intracranial abnormality. No CT evidence of mass, acute infarct or intracranial hemorrhage. 2. Chronic small vessel ischemic changes in the deep white matter. Dictated by: Dictated on workstation # [id number]
== END ==
LOC: RAD 10:49
PROVIDERS: ATTEND Internal Medicine
DX: I67.89 Other cerebrovascular disease (principal); R41.3 Other amnesia; I48.0 Paroxysmal atrial fibrillation; F32.0 Major depressive disorder, single episode, mild; I10 Essential (primary) hypertension
CPT/HCPCS: 70450